=== PATIENT | male | born 1955 | race Caucasian/White ===

== ENCOUNTER → 2016-11-10 | Outpatient (CLI) | payer OTHER ==
--- NOTE | 2016-11-10 13:34 | CT ---
EXAMINATION TYPE: CT ChestAbdPelvis w con DATE OF EXAM: 11/10/2016 1:22 PM COMPARISON: CT CAP July 27, 2016. PET/CT September 18, 2015. HISTORY: Melanoma progress study. CT DLP: 1844 mGycm. Automated Exposure Control for Dose Reduction was Utilized. CONTRAST: CT scan of the thorax, abdomen and pelvis is performed with oral and with IV Contrast, patient inject ed with 100 ml mL of Omnipaque 300. FINDINGS: LUNGS: There is stable 7 mm calcified nodule or granuloma in the right lung base on axial image 56. T here is stable 7 mm right midlung calcified nodule possible lateral hilar lymph node on axial image 4 3. Mild underlying emphysematous change is redemonstrated. There is no new suspicious noncalcified pa renchymal nodule or mass identified bilaterally. There is no pleural effusion or pneumothorax seen bi laterally. The tracheobronchial tree is patent. MEDIASTINUM: There are no greater than 1 cm noncalcified hilar or mediastinal lymph nodes. There are prominent but subcentimeter calcified subcarinal lymph nodes No cardiomegaly or pericardial effusio n is seen. Coronary artery calcification is redemonstrated. OTHER: Previous abnormal lower right axillary mass or adenopathy is not identified on current study. LIVER/GB: Liver remains diffusely low dense. PANCREAS: No significant abnormality is seen. SPLEEN: Some scattered calcifications throughout the spleen are redemonstrated. ADRENALS: No significant abnormality is seen. KIDNEYS: No significant abnormality is seen. BOWEL: No significant abnormality is seen. GENITAL ORGANS: No gross abnormality seen. LYMPH NODES: There is persistent low dense oval area over left iliac bone measuring 8.8 x 3.4 cm on a xial image 109 with some rim hyperdensity and calcification unchanged in size and appearance from mos t recent CT cap study, significantly improved in size versus original PET/CT. Adjacent bone shows val e sclerosis. Some sclerotic erosion anteriorly and inferiorly is stable at level of superior left hip joint. OSSEOUS STRUCTURES: No significant abnormality is seen. OTHER: There is mild atherosclerotic change of abdominal aorta and branch vessels. IMPRESSION: Stable appearance and size of left iliac lesion suspect treated neoplasm. No new mass or adenopathy is identified.
== END | disposition home or self-care (01) ==
LOC: RADCTMAIN 12:38
PROVIDERS: ATTEND Internal Medicine Hematology & Oncology
DX: M89.8X8 Other specified disorders of bone, other site (principal); C43.9 Malignant melanoma of skin, unspecified
CPT/HCPCS: 71260; 74177; Q9967

== ENCOUNTER → 2016-12-19 | Outpatient (CLI) | payer OTHER ==
--- NOTE | 2016-12-19 10:27 | MR ---
EXAMINATION TYPE: MR brain wo/w con DATE OF EXAM: 12/19/2016 8:26 AM COMPARISON: Prior MRI brain September 13, 2015. HISTORY: Headaches , malignant melanoma TECHNIQUE: Multiplanar, multisequence images of the brain and brainstem is performed without and with IV contras t, utilizing 20 mL intravenous MultiHance . FINDINGS: Diffusion weighted images demonstrate no evidence of a recent infarct or other diffusion ab normality. There is no worrisome extra-axial fluid collection. The ventricular system and cisternal spaces are normal in size and appearance. The brain volume is age appropriate. There are scattered foci of T2 hyperintensity seen throughout the white matter bilaterally. Approximately 20-25 scattered lesions are felt present. Lesions are nonspecific in appearance and distribution most likely on basi s of product of chronic small vessel ischemic change. No new lesions are clearly evident. Midline structures demonstrate normal morphology. The craniocervical junction appears within normal limits. Post contrast images demonstrate no abnormal enhancement. The dural venous sinuses appear pa tent. The visualized sinuses are clear on current study and the globes are intact. Nasal septum is de viated to right of midline similar to prior. IMPRESSION: 1. Mild to moderate nonspecific white matter changes most likely on basis of product of chronic small vessel ischemic change in patient of this age. 2. Interval resolution of right maxillary sinus disease. 3. No new suspicious enhancing intraparenchymal mass or other findings seen to account for patient's symptoms of headaches.
== END | disposition home or self-care (01) ==
LOC: RADMRIMAIN 07:40
PROVIDERS: ATTEND Internal Medicine Hematology & Oncology
DX: R90.82 White matter disease, unspecified (principal); C43.9 Malignant melanoma of skin, unspecified
CPT/HCPCS: 70553; A9577

== ENCOUNTER → 2017-02-15 | Outpatient (CLI) | payer OTHER ==
[2017-02-15 10:43] LABS: Blood Urea Nitrogen 14 mg/dL (9-20); Non-African American GFR(MDRD) >60 (>60 ml/min/1.73 sqM)
--- NOTE | 2017-02-15 12:33 | CT ---
EXAMINATION TYPE: CT ChestAbdPelvis w con DATE OF EXAM: 02/15/2017 COMPARISON: 11/10/2016 and 07/27/2016. HISTORY: 61-year-old female follow up to melanoma of Lt hip TECHNIQUE: Contiguous axial scanning of the chest, abdomen, and pelvis performed with IV Contrast, pa tient injected with 100 mL of Omnipaque 300. Delayed images through the kidneys were obtained. Lopez l/sagittal reconstructions performed. CT DLP: 1706.5 mGycm Automated exposure control for dose reduction was used. FINDINGS: CHEST: The heart is normal size without pericardial effusion. Coronary vessel calcifications are present in remarkable for coronary artery disease. Ascending aorta is ectatic at 3.8 cm. Mild atherosclerotic arch calcifications with conventional arch vessel branching anatomy. Calcified subcarinal and right hilar lymph nodes. No thoracic lymphadenopathy. Stable calcified granuloma at the right base. Mild diffuse bronchial wall thickening and mild to mode rate centrilobular emphysema. No consolidation or pleural effusion. ABDOMEN: No focal liver lesion or biliary ductal dilatation. Portal venous system is patent. Gallbladder, adrenal glands, kidneys, and pancreas within normal limits. Calcified granulomas within the spleen. Stable nonenlarged portacaval lymph node measuring 8 mm. No mesenteric or retroperitoneal lymphadenop athy seen. No dilated small bowel, free fluid, or free air. Normal appendix. Oral contrast has progressed to the mid transverse colon. Mild stool in the left hem icolon. No pericolonic inflammatory change. Tiny fatty umbilical hernia. Mild atelectatic calcifications throughout the abdominal aorta and iliac arteries. Pelvis: Mild cervical frontal bladder wall thickening. Central prostatic calcifications. Redemonstrated low-density soft tissue versus dense fluid lesion along the left iliac fossa and anter ior margin of the left sacral and underlying bony remodeling. This currently measures 8.8 x 3.5 cm ve rsus 8.8 x 3.4 cm, previously, not significantly changed. However, this is noted to be smaller from 07/27/2016. There may be some thin peripheral calcifications. Asymmetric atrophy of the left psoas ma silas is similar as well. Bones: The chronic remodeling of the left iliac fossa as mentioned above. Underlying sclerosis of the left i liac bone is unchanged and may reflect posttreatment change. There is some vertically oriented sclero sis in the left sacral alar, coronal image 78 and axial image 102 which was also present on prior exa m in retrospect that could represent a subtle chronic insufficiency fracture. Otherwise, no osseous d estructive process seen. IMPRESSION: 1. STABLE LOW-DENSITY MASS VERSUS FLUID COLLECTION MEASURING 8.8 CM ALONG THE LEFT ILIAC FOSSA LIKELY REPRESENTING TREATED DISEASE. 2. UNDERLYING REMODELING OF THE LEFT ILIAC FOSSA IS STABLE WELL. 3. NO EVIDENCE FOR DISEASE RECURRENCE IN THE CHEST, ABDOMEN, OR PELVIS.
== END | disposition home or self-care (01) ==
LOC: RADCTMAIN 10:15
PROVIDERS: ATTEND Internal Medicine Hematology & Oncology
DX: C43.59 Malignant melanoma of other part of trunk (principal); Z88.5 Allergy status to narcotic agent
CPT/HCPCS: 82565; 84520; 71260; 74177; 36415; Q9967

== ENCOUNTER → 2017-06-26 | Outpatient (CLI) | payer OTHER ==
[2017-06-26 12:45] LABS: Blood Urea Nitrogen 14 mg/dL (9-20); Non-African American GFR(MDRD) >60 (>60 ml/min/1.73 sqM)
--- NOTE | 2017-06-26 16:30 | CT ---
EXAMINATION TYPE: CT ChestAbdPelvis w con DATE OF EXAM: 06/26/2017 COMPARISON: Prior CT chest abdomen pelvis 02/15/2017 HISTORY: Melanoma CT DLP: 2446.2 mGycm Automated exposure control for dose reduction was used. CONTRAST: CT scan of the chest, abdomen and pelvis is performed with Oral Contrast and with IV Contrast, patien t injected with 100 mL of Omnipaque 300. FINDINGS: LUNGS: The lungs are grossly clear, there is no concerning parenchymal mass or nodule identified. C entrilobular emphysematous changes are again noted. Calcified nodule again noted in the right lower l obe. There is no pleural effusion or pneumothorax seen. The tracheobronchial tree is patent. MEDIASTINUM: Calcified subcarinal nodes again seen. Coronary artery calcifications present. No perica rdial effusion. AORTA: No significant abnormality is seen. OTHER: No additional significant abnormality is seen. LIVER/GB: Stable PANCREAS: No significant abnormality is seen. SPLEEN: Evidence of granulomatous disease as on prior exam. ADRENALS: No significant abnormality is seen. KIDNEYS: No significant abnormality is seen. REPRODUCTIVE ORGANS: No gross abnormality seen. BOWEL: No obstruction. FREE AIR: No Free Air visible. ASCITES: None seen. RETROPERITONEAL ADENOPATHY: No retroperitoneal adenopathy is seen. LYMPH NODES: No greater than 1 cm abdominal or pelvic lymph nodes are appreciated. URINARY BLADDER: No significant abnormality is seen. PELVIC ADENOPATHY: None visualized. OSSEOUS STRUCTURES: Sclerosis involves the left ilium similar to prior exam. Low density focus prese nt along the left pelvic sidewall is again noted, there is remodeling of the anterior aspect of the a cetabulum as on prior exam. The low-density focus within the left pelvic sidewall shows a similar siz e to previous exam and extends to the level of the sacrum to the level of the peripheral portion of t he external iliac vasculature. Asymmetric appearance to the iliopsoas as on prior exam. IMPRESSION: Findings are similar to prior exam.
== END | disposition home or self-care (01) ==
LOC: RADCTMAIN 12:02
PROVIDERS: ATTEND Internal Medicine Hematology & Oncology
DX: C43.59 Malignant melanoma of other part of trunk (principal); Z88.5 Allergy status to narcotic agent
CPT/HCPCS: 82565; 84520; 71260; 74177; 36415; Q9967

== ENCOUNTER → 2018-01-02 | Outpatient (CLI) | payer OTHER ==
[2018-01-02 14:50] LABS: Blood Urea Nitrogen 15 mg/dL (9-20)
--- NOTE | 2018-01-02 16:32 | CT ---
EXAMINATION TYPE: CT ChestAbdPelvis w con DATE OF EXAM: 01/02/2018 COMPARISON: 06/26/2017 HISTORY: Follow up for melanoma. Back and left hip pain. CT DLP: 2474.8 mGycm CONTRAST: CT scan of the chest, abdomen and pelvis is performed with Oral Contrast and with IV Contrast, patien t injected with 100ml mL of Isovue M300. CT Chest: LUNGS: The lungs are clear and free of infiltrate or atelectasis. No pulmonary nodule or mass is det ected. No pleural effusion or CT evidence of interstitial lung disease. Right basilar calcified gran uloma. MEDIASTINUM: Thoracic aorta is of normal caliber. The heart is not enlarged. No evidence for media stinal mass or adenopathy. HILAR STRUCTURES: No evidence for mass. No hilar adenopathy is appreciated. OTHER: No significant abnormality. CONTRAST CT ABDOMEN AND PELVIS FINDINGS: LIVER/GB: No calcified gallstones. No space occupying hepatic lesion. Biliary tree is of normal ca liber. PANCREAS: No inflammation. No distinct mass. SPLEEN: No splenic enlargement. No lesion seen. ADRENALS: No nodule. No thickening. KIDNEYS/BLADDER: No hydronephrosis. No nephrolithiasis. No disctinct renal mass. BOWEL: Normal appendix. Normal bowel caliber. No inflammation. GENITAL ORGANS: No gross abnormality. LYMPH NODES: No greater than 1cm abdominal or pelvic lymph nodes are appreciated. AORTA: No significant abnormality. OSSEOUS STRUCTURES: Sclerosis involves the left ilium similar to prior exam. Low density focus prese nt along the left pelvic sidewall is again noted , there is remodeling of the anterior aspect of the acetabulum as on prior exam. The low-density focus within the left pelvic sidewall shows a similar si ze to previous exam and extends to the level of the sacrum to the level of the peripheral portion of the external iliac vasculature. Asymmetric appearance to the iliopsoas as on prior exam. OTHER: No significant additional abnormality is seen. IMPRESSION: 1. Stable examination.
== END | disposition home or self-care (01) ==
LOC: RADCTMAIN 14:11
PROVIDERS: ATTEND Internal Medicine Hematology & Oncology
DX: C43.59 Malignant melanoma of other part of trunk (principal); Z88.5 Allergy status to narcotic agent; Z88.8 Allergy status to other drugs, medicaments and biological substances
CPT/HCPCS: 82565; 84520; 71260; 74177; 36415; Q9967

== ENCOUNTER → 2018-02-21 | Outpatient (CLI) | payer OTHER ==
[2018-02-21 16:03] LABS: Blood Urea Nitrogen 13 mg/dL (9-20)
--- NOTE | 2018-02-22 08:59 | CT ---
EXAMINATION TYPE: CT chest w con DATE OF EXAM: 02/21/2018 COMPARISON: 01/02/2018 CT chest, abdomen, and pelvis HISTORY: melanoma/observe mets/sob CT DLP: 617.7 mGycm. Automated Exposure Control for Dose Reduction was Utilized. TECHNIQUE: CT scan of the thorax is performed following with IV Contrast, patient injected with 100 mL of Isovue 300. FINDINGS: LUNGS: There is a new moderate to large right pleural effusion with associated multifocal right-sided subsegmental and segmental right basilar atelectasis. There is no gross evidence of endobronchial ob struction. A new vague 2 mm solid-appearing pulmonary nodule seen on series 4 image 32 within the lef t upper lobe. A subtle groundglass opacity is also seen within the left upper lobe on series 4 image 22 developing interim. Similar-appearing nodular densities within the medial left upper lobe are unch anged from the prior. These are demonstrated on series 4 image 16. Along the left interlobar fissure there is a new 7 mm pulmonary nodule on series 4 image 52, given its short-term interval development in decreased conspicuity on soft tissue windows this could represent an intrafissural lymph node rath er than a true pulmonary nodule. MEDIASTINUM: Although they remain less than 1 cm in short axis the mediastinal lymph nodes seen on th e prior exam of 01/02/2018 have enlarged in the interim with a prevascular lymph node on series 3 imag e 21 measuring up to 9 mm in short axis and previously measuring 2 mm. Just posterior to this within the pretracheal region there is a 9 mm short axis lymph node also previously measuring 1 to 2 mm. On series 3 image 26 there is a pretracheal lymph node measuring 1.0 cm in short axis, measuring approxi mately 3 mm in short axis on the prior. A right suprahilar lymph node measures 1.3 cm and is enlarged on series 3 image 29. Subcarinal adenopathy again demonstrates granulomatous change but has also enl arged in the interim as have other left paratracheal and left hilar lymph nodes. No pericardial eff usion is seen. Moderate three-vessel coronary artery calcifications are seen. OTHER: Granulomatous benign parenchymal calcifications are seen of the spleen. Minimal degenerative c hanges of the thoracic spine are noted. IMPRESSION: 1. New moderate to large right pleural effusion with associated multifocal right-sided atelectasis th at is subsegmental and segmental within the right lung base. No endobronchial obstructing lesion is i dentified. If thoracentesis is performed reevaluation after thoracentesis is recommended to assess fo r underlying pulmonary mass. 2. Development of mediastinal adenopathy, which may be reactive and can also be assessed short-term. 3. New 2 mm left pulmonary nodule and 7 mm pulmonary nodule versus intrafissural lymph node.
== END | disposition home or self-care (01) ==
LOC: RADCTMAIN 15:09
PROVIDERS: ATTEND Internal Medicine Hematology & Oncology
DX: C43.59 Malignant melanoma of other part of trunk (principal); J90 Pleural effusion, not elsewhere classified; J98.11 Atelectasis; R59.0 Localized enlarged lymph nodes
CPT/HCPCS: 82565; 84520; 71260; 36415; Q9967

== ENCOUNTER 2018-02-22 15:52 | Inpatient (IN) | payer OTHER ==
--- NOTE | 2018-02-22 17:13 | ED ---
General Adult HPI - General Chief complaint: Shortness of Breath Stated complaint: LEO Time Seen by Provider: 02/22/18 16:35 Source: patient, RN notes reviewed Mode of arrival: wheelchair Limitations: no limitations - History of Present Illness Initial comments: This is a 8-year-old male who presents emergency Department complaining of difficulty breathing. Patient states she has a history of fluid on the lung and COPD. Patient states the difficulty breathing and getting worse over the last few days. Patient denies any fever but states he feels warm. Patient states he does have the chills. Patient denies any chest pain or shortness of breath. He states he has occasional cough but he has not produced any sputum. Patient denies abdominal pain patient denies nausea or vomiting. Patient also mentions he's had a rash all over his body face chest back and legs also on the palms of his hands for about 10 days now and it started after he took amoxicillin. Patient states the rash does not really bother him and he does not have any itching. Patient does have a past medical history significant for melanoma - Related Data Home Medications Medication Instructions Recorded Confirmed Tafinlar 3 tab PO BID 10/07/15 02/22/18 Trametinib Dimethyl Sulfoxide 2 mg PO DAILY 10/07/15 02/22/18 [Mekinist] Aspirin EC [Ecotrin] 325 mg PO DAILY 11/09/15 02/22/18 HYDROcodone/APAP 10-325MG [Printer 1 tab PO Q6H PRN 11/09/15 02/22/18 10-325] Sertraline [Zoloft] 100 mg PO HS 11/09/15 02/22/18 Albuterol Inhaler [Ventolin Hfa 2 puff INHALATION RT-Q6H PRN 02/22/18 02/22/18 Inhaler] LORazepam [Ativan] 1 mg PO DAILY PRN 02/22/18 02/22/18 Montelukast [Singulair] 10 mg PO DAILY 02/22/18 02/22/18 Primidone [Mysoline] 50 mg PO BID 02/22/18 02/22/18 Temazepam [Restoril] 30 mg PO HS 02/22/18 02/22/18 diphenhydrAMINE HCL [Benadryl] 25 mg PO HS PRN 02/22/18 02/22/18 fentaNYL 25MCG/HR PATCH [Duragesic 1 patch TRANSDERM Q72H 02/22/18 02/22/18 25MCG/HR] Previous Rx's Medication Instructions Recorded traZODone HCL [Desyrel] 100 mg PO HS tab 11/12/15 Allergies Allergy/AdvReac Type Severity Reaction Status Date / Time oxycodone HCl AdvReac Confusion Verified 02/22/18 17:53 [From OxyContin] Morphine Family AdvReac Family Uncoded 02/22/18 16:36 history of altered mental status Review of Systems ROS Statement: Those systems with pertinent positive or pertinent negative responses have been documented in the HPI. ROS Other: All systems not noted in ROS Statement are negative. Past Medical History Past Medical History: Coronary Artery Disease (CAD), Cancer, COPD, Myocardial Infarction (IA), Musculoskeletal Disorder, Osteoarthritis (OA), Sleep Apnea/CPAP /BIPAP Additional Past Medical History / Comment(s): Metastatic melanoma of the pelvis. ANNETTE Last Myocardial Infarction Date:: 2003 History of Any Multi-Drug Resistant Organisms: None Reported Past Surgical History: Heart Catheterization With Stent Additional Past Surgical History / Comment(s): melanoma excision from back. b/ l cataracts Past Anesthesia/Blood Transfusion Reactions: No Reported Reaction Date of Last Stent Placement:: 2003 Past Psychological History: Anxiety Smoking Status: Current every day smoker Past Alcohol Use History: None Reported Past Drug Use History: None Reported - Past Family History Father Family Medical History: Cancer Additional Family Medical History / Comment(s): Father of lung cancer. He was a smoker. He had glaucoma and cataracts and macular degeneration. Mother Family Medical History: Cancer, COPD Additional Family Medical History / Comment(s): Mother had breast cancer. She was an alcoholic. General Exam - General Exam Comments Initial Comments: GENERAL: Patient is well-developed and well-nourished. Patient is nontoxic and well- hydrated and is in mild distress. ENT: Neck is soft and supple. No significant lymphadenopathy is noted. Oropharynx is clear. Moist mucous membranes. Neck has full range of motion without eliciting any pain. EYES: The sclera were anicteric and conjunctiva were pink and moist. Extraocular movements were intact and pupils were equal round and reactive to light. Eyelids were unremarkable. PULMONARY: Patient has significantly diminished breath sounds on the right side. Patient' s left side has been extremely wheezing. CARDIOVASCULAR: There is a regular rate and rhythm without any murmurs gallops or rubs. ABDOMEN: Soft and nontender with normal bowel sounds. No palpable organomegaly was noted. There is no palpable pulsatile mass. SKIN: Patient has small erythematous macules in the distal abdomen and lower back however the upper abdomen and upper back he rashes coalesced into just a large erythematous area. There is no raised rash noted patient has a same rash on his legs. Patient also has a small erythematous macules on the palms of his hands. NEUROLOGIC: Patient is alert and oriented x3. Cranial nerves II through XII are grossly intact. Motor and sensory are also intact. Normal speech, volume and content. Symmetrical smile. MUSCULOSKELETAL: Normal extremities with adequate strength and full range of motion. LYMPHATICS: No significant lymphadenopathy is noted PSYCHIATRIC: Normal psychiatric evaluation. Limitations: no limitations Course Vital Signs 02/22/18 16:33 Temperature 98.5 F Pulse Rate 80 Respiratory 20 Rate Blood Pressure 111/65 O2 Sat by Pulse 94 L Oximetry Medical Decision Making - Medical Decision Making EKG shows sinus rhythm at 80 bpm HI interval is 94 QRS is 84 QT interval 366 QTC is 442. Patient's EKG shows no ST segment elevation or depression or T wave abnormalities are noted. Chest x-ray shows a large right-sided pleural effusion which is new. Patient had a CAT scan yesterday it did show this effusion as well as some nodules that are new. Patient also shows some lymphadenopathy. I spoke with Dr. Flora Hines agrees that the patient should be admitted and I admitted the patient consult oncology and pulmonology - Lab Data Result diagrams: 02/22/18 17:24 02/22/18 17:24 Lab Results 02/22/18 02/22/18 02/22/18 Range/Units 17:24 17:24 17:24 WBC 10.5 (3.8-10.6) k/uL RBC 4.38 (4.30-5.90) m/uL Hgb 11.6 L (13.0-17.5) gm/dL Hct 35.7 L (39.0-53.0) % MCV 81.4 (80.0-100.0) fL MCH 26.4 (25.0-35.0) pg MCHC 32.5 (31.0-37.0) g/dL RDW 14.5 (11.5-15.5) % Plt Count 464 H (150-450) k/uL Neutrophils % 90 % Lymphocytes % 3 % Monocytes % 4 % Eosinophils % 3 % Basophils % 0 % Neutrophils # 9.4 H (1.3-7.7) k/uL Lymphocytes # 0.3 L (1.0-4.8) k/uL Monocytes # 0.4 (0-1.0) k/uL Eosinophils # 0.3 (0-0.7) k/uL Basophils # 0.0 (0-0.2) k/uL PT (9.0-12.0) sec INR (<1.2) APTT (22.0-30.0) sec Sodium 134 L (137-145) mmol/L Potassium 4.7 (3.5-5.1) mmol/L Chloride 95 L (98-107) mmol/L Carbon Dioxide 29 (22-30) mmol/L Anion Gap 10 mmol/L BUN 11 (9-20) mg/dL Creatinine 0.60 L (0.66-1.25) mg/dL Est GFR (CKD-EPI)AfAm >90 (>60 ml/min/1.73 sqM) Est GFR (CKD-EPI)NonAf >90 (>60 ml/min/1.73 sqM) Glucose 103 H (74-99) mg/dL Calcium 8.9 (8.4-10.2) mg/dL Magnesium 2.2 (1.6-2.3) mg/dL Total Bilirubin 0.2 (0.2-1.3) mg/dL AST 23 (17-59) U/L ALT 42 (21-72) U/L Alkaline Phosphatase 107 (38-126) U/L Total Creatine Kinase 66 (55-170) U/L CK-MB (CK-2) 1.3 (0.0-2.4) ng/mL CK-MB (CK-2) Rel Index 2.0 Troponin I <0.012 (0.000-0.034) ng/mL Total Protein 5.9 L (6.3-8.2) g/dL Albumin 3.1 L (3.5-5.0) g/dL 02/22/18 Range/Units 17:24 WBC (3.8-10.6) k/uL RBC (4.30-5.90) m/uL Hgb (13.0-17.5) gm/dL Hct (39.0-53.0) % MCV (80.0-100.0) fL MCH (25.0-35.0) pg MCHC (31.0-37.0) g/dL RDW (11.5-15.5) % Plt Count (150-450) k/uL Neutrophils % % Lymphocytes % % Monocytes % % Eosinophils % % Basophils % % Neutrophils # (1.3-7.7) k/uL Lymphocytes # (1.0-4.8) k/uL Monocytes # (0-1.0) k/uL Eosinophils # (0-0.7) k/uL Basophils # (0-0.2) k/uL PT 10.3 (9.0-12.0) sec INR 1.0 (<1.2) APTT 26.5 (22.0-30.0) sec Sodium (137-145) mmol/L Potassium (3.5-5.1) mmol/L Chloride (98-107) mmol/L Carbon Dioxide (22-30) mmol/L Anion Gap mmol/L BUN (9-20) mg/dL Creatinine (0.66-1.25) mg/dL Est GFR (CKD-EPI)AfAm (>60 ml/min/1.73 sqM) Est GFR (CKD-EPI)NonAf (>60 ml/min/1.73 sqM) Glucose (74-99) mg/dL Calcium (8.4-10.2) mg/dL Magnesium (1.6-2.3) mg/dL Total Bilirubin (0.2-1.3) mg/dL AST (17-59) U/L ALT (21-72) U/L Alkaline Phosphatase (38-126) U/L Total Creatine Kinase (55-170) U/L CK-MB (CK-2) (0.0-2.4) ng/mL CK-MB (CK-2) Rel Index Troponin I (0.000-0.034) ng/mL Total Protein (6.3-8.2) g/dL Albumin (3.5-5.0) g/dL Disposition Clinical Impression: Pleural effusion, Erythematous rash Disposition: ADMITTED IP TO THIS HOSP Referrals: Iván Hines Jr, [Primary Care Provider] - 1-2 days Time of Disposition: 19:03
[2018-02-22] MEDS ORDERED: ACETAMINOPHEN TAB 500 MG TAB PO STA (17:18)
[2018-02-22 17:37] LABS: Basophils % (A) 0 %; Eosinophils # (A) 0.3 k/uL (0-0.7); Eosinophils % (A) 3 %; HCT 35.7 % (39.0-53.0); HGB 11.6 gm/dL (13.0-17.5); Lymphocytes # (A) 0.3 k/uL (1.0-4.8); Lymphocytes % (A) 3 %; MCH 26.4 pg (25.0-35.0); MCHC 32.5 g/dL (31.0-37.0); MCV 81.4 fL (80.0-100.0); Mean Platelet Volume 6.1; Monocytes # (A) 0.4 k/uL (0-1.0); Monocytes % (A) 4 %; Neutrophils # (A) 9.4 k/uL (1.3-7.7); Neutrophils % (A) 90 %; Platelet Count 464 k/uL (150-450); RBC 4.38 m/uL (4.30-5.90); RDW 14.5 % (11.5-15.5); WBC 10.5 k/uL (3.8-10.6)
[2018-02-22 17:48] LABS: Partial Thromboplastin Time 26.5 sec (22.0-30.0); Prothrombin Time 10.3 sec (9.0-12.0)
[2018-02-22 18:09] LABS: Creatine Kinase 66 U/L (55-170)
[2018-02-22 18:11] LABS: ALT 42 U/L (21-72); AST 23 U/L (17-59); Albumin 3.1 g/dL (3.5-5.0); Alkaline Phosphatase 107 U/L (38-126); Anion Gap 10 mmol/L; Blood Urea Nitrogen 11 mg/dL (9-20); Calcium 8.9 mg/dL (8.4-10.2); Carbon Dioxide 29 mmol/L (22-30); Chloride 95 mmol/L (98-107); Glucose 103 mg/dL (74-99); Magnesium 2.2 mg/dL (1.6-2.3); Potassium 4.7 mmol/L (3.5-5.1); Sodium 134 mmol/L (137-145); Total Bilirubin 0.2 mg/dL (0.2-1.3); Total Protein 5.9 g/dL (6.3-8.2)
[2018-02-22 18:21] LABS: Creatine Kinase MB 1.3 ng/mL (0.0-2.4); Troponin I <0.012 ng/mL (0.000-0.034)
--- NOTE | 2018-02-22 18:56 | XR ---
EXAMINATION TYPE: XR chest 2V DATE OF EXAM: 02/22/2018 COMPARISON: 10/09/2015 HISTORY: Difficulty breathing TECHNIQUE: Frontal and lateral views of the chest are obtained. FINDINGS: There is 50% opacification of the right hemithorax. Heart size is probably normal. The lef t lung is clear. There is no heart failure. IMPRESSION: There is new right lower lobe consolidation and pleural fluid compared to old exam. No h eart failure.
[2018-02-22] MEDS ORDERED: SODIUM CHLORIDE 0.9% 1,000 ML IV ONE (19:03)
[2018-02-23] MEDS: TEMAZEPAM 30 MG CAP PO SCH ×2 (00:11→21:39)
[2018-02-23] MEDS: SERTRALINE 100 MG TAB PO SCH ×2 (00:11→21:35)
[2018-02-23] MEDS: HYDROcodone/APAP 10-325MG 1 EACH TAB PO PRN ×2 (05:35→10:48)
--- NOTE | 2018-02-23 09:05 | US ---
EXAMINATION TYPE: US chest DATE OF EXAM: 02/23/2018 COMPARISON: Chest XR 02/22/2018 CLINICAL HISTORY: Markings for thoracentesis by pulmonary staff. EXAM MEASUREMENTS: Right Pleural Effusion fluid pocket: 5.6 cm Right skin to fluid thickness: 3.3 cm Right side marked for possible thoracentesis outside the dept. Left side NOT marked for possible thoracentesis outside the dept. Pulmonologists are able to review the images in the patient?s EMR. IMPRESSIONS: SMALL, BILATERAL PLEURAL EFFUSIONS.
[2018-02-23] MEDS ORDERED: IPRATROPIUM-ALBUTEROL 3 ML NEB INHALATION PRN (09:51)
[2018-02-23] MEDS ORDERED: MEKINIST 2 MG PO SCH ×2 (10:01→17:00)
[2018-02-23] MEDS ORDERED: TAFINLAR PO SCH ×2 (10:01→21:00)
[2018-02-23] MEDS ORDERED: diphenhydrAMINE 25 MG CAP PO PRN (10:04)
--- NOTE | 2018-02-23 10:30 | P.HPIM ---
History of Present Illness H&P Date: 02/23/18 Chief Complaint: Dyspnea This 62-year-old male well-known to our practice who presented to the emergency department with difficulty breathing patient has a history of pleural effusions COPD and malignant melanoma patients having difficulty breathing that's getting worse over the past few days patient denied fever but states he felt warm patient complained of chills and denied chest pain. He does have an occasional cough but nonproductive. Patient had quit smoking when he initially was diagnosed with melanoma and restart feeling better he can affect up the habit again does smoke at least 10 or more cigarettes daily patient also mentioned that he has a rash over her chest and back also has had about 10 days now after he took amoxicillin which patient states the rash does not have itching Review of Systems Constitutional: Reports as per HPI, Reports chills, Reports malaise Ears, nose, mouth and throat: Reports as per HPI Cardiovascular: Reports as per HPI, Reports dyspnea on exertion Respiratory: Reports dyspnea, Reports sleep apnea, Reports wheezing Gastrointestinal: Reports as per HPI Genitourinary: Reports as per HPI Musculoskeletal: Reports as per HPI Integumentary: Reports rash (Denies pruritus) Past Medical History Past Medical History: Coronary Artery Disease (CAD), Cancer, COPD, Myocardial Infarction ([place]), Musculoskeletal Disorder, Osteoarthritis (OA), Sleep Apnea/CPAP /BIPAP Additional Past Medical History / Comment(s): Metastatic melanoma of the pelvis. ANNETTE Last Myocardial Infarction Date:: 2013 History of Any Multi-Drug Resistant Organisms: None Reported Past Surgical History: Heart Catheterization With Stent Additional Past Surgical History / Comment(s): melanoma excision from back. b/ l cataracts Past Anesthesia/Blood Transfusion Reactions: No Reported Reaction Date of Last Stent Placement:: 2013 Past Psychological History: Anxiety Additional Psychological History / Comment(s): Pt resides with his spouse who is currently under tx for TB. He has 2 grown son's in the home as well. Pt has been getting progressively weaker to the point of 2 weeks ago no longer able to walk and was crawling around the home. He has no home care agency. He has a very supportive family with mohit's and son's doing what they can and checking pt frequently. He already has a bath chair and BSC. He was in the process of getting a hospital bed/ bedside tray however it has not happened yet. Family would like block and case maker to see them. Smoking Status: Current some day smoker Past Alcohol Use History: None Reported Additional Past Alcohol Use History / Comment(s): Pt started smoking at age 13 and is a 2 1/2 ppd smoker. Past Drug Use History: None Reported - Past Family History Father Family Medical History: Cancer Additional Family Medical History / Comment(s): Father of lung cancer. He was a smoker. He had glaucoma and cataracts and macular degeneration. Mother Family Medical History: Cancer, COPD Additional Family Medical History / Comment(s): Mother had breast cancer. She was an alcoholic. Medications and Allergies Home Medications Medication Instructions Recorded Confirmed Type Tafinlar 3 tab PO BID 10/07/15 02/22/18 History Trametinib Dimethyl Sulfoxide 2 mg PO DAILY 10/07/15 02/22/18 History [Mekinist] Aspirin EC [Ecotrin] 325 mg PO DAILY 11/09/15 02/22/18 History HYDROcodone/APAP 10-325MG [[place] 1 tab PO Q6H PRN 11/09/15 02/22/18 History 10-325] Sertraline [Zoloft] 100 mg PO HS 11/09/15 02/22/18 History traZODone HCL [Desyrel] 100 mg PO HS tab 11/12/15 02/22/18 Rx Albuterol Inhaler [Ventolin Hfa 2 puff INHALATION RT-Q6H PRN 02/22/18 02/22/18 History Inhaler] LORazepam [Ativan] 1 mg PO DAILY PRN 02/22/18 02/22/18 History Montelukast [Singulair] 10 mg PO DAILY 02/22/18 02/22/18 History Primidone [Mysoline] 50 mg PO BID 02/22/18 02/22/18 History Temazepam [Restoril] 30 mg PO HS 02/22/18 02/22/18 History diphenhydrAMINE HCL [Benadryl] 25 mg PO HS PRN 02/22/18 02/22/18 History fentaNYL 25MCG/HR PATCH [Duragesic 1 patch TRANSDERM Q72H 02/22/18 02/23/18 History 25MCG/HR] Allergies Allergy/AdvReac Type Severity Reaction Status Date / Time oxycodone HCl AdvReac Confusion Verified 02/22/18 17:53 [From OxyContin] Morphine Family AdvReac Family Uncoded 02/22/18 16:36 history of altered mental status Physical Exam Osteopathic Statement: *. No significant issues noted on an osteopathic structural exam other than those noted in the History and Physical/Consult. Vitals: Vital Signs Temp Pulse Pulse Resp BP BP Pulse Ox 02/23/18 07:17 98.3 F 82 18 112/76 95 02/22/18 21:44 97.9 F 94 18 132/82 92 L 02/22/18 20:57 76 16 121/62 97 02/22/18 19:55 96.5 F L 93 14 126/73 02/22/18 16:33 98.5 F 80 20 111/65 94 L Intake and Output 02/22/18 02/23/18 02/23/18 22:59 06:59 14:59 Output Total 250 Balance -250 Output: Urine 250 Other: Weight 111.584 kg General: [Patient awake, alert and oriented times 3. Patient in no acute distress.] HEENT: [PERRL. EOMI. No pharyngeal erythema or exudate.] Neck: [No adenopathy.] Cardiac: [Heart regular in rate and rhythm. No S3. No S4. No clicks, rubs. No murmur.] Lungs: Breath sounds significantly diminished on the right patient has extreme wheezing bilaterally Abdomen: [No mass. No organomegaly. Bowel sounds presnt and normoactive in all 4 quadrants.] Extremes: [No edema no cyanosis no claudication normal pulses] : [] Musculoskeletal: [No joint erythema, edema or tenderness.] Skin: [No rash.] Neurologic: [No lateralizing deficits. CN II - XII grossly intact.] Lymphatic: [No adenopathy.] Results CBC & Chem 7: 02/22/18 17:24 02/22/18 17:24 Labs: Abnormal Lab Results - Last 24 Hours (Table) 02/22/18 02/22/18 Range/Units 17:24 17:24 Hgb 11.6 L (13.0-17.5) gm/dL Hct 35.7 L (39.0-53.0) % Plt Count 464 H (150-450) k/uL Neutrophils # 9.4 H (1.3-7.7) k/uL Lymphocytes # 0.3 L (1.0-4.8) k/uL Sodium 134 L (137-145) mmol/L Chloride 95 L (98-107) mmol/L Creatinine 0.60 L (0.66-1.25) mg/dL Glucose 103 H (74-99) mg/dL Total Protein 5.9 L (6.3-8.2) g/dL Albumin 3.1 L (3.5-5.0) g/dL Thrombosis Risk Factor Assmnt - DVT/VTE Prophylaxis DVT/VTE Prophylaxis: Contraindicated - See note (Patient is being prepped for thoracentesis for pulmonary infusion both therapeutic and diagnostic) - Choose All That Apply Any of the Below Risk Factors Present?: Yes Each Factor Represents 1 point: Abnormal pulmonary function (COPD), Acute [place], Age 41-60 years Other Risk Factors: Yes Each Risk Factor Represents 2 Points: Malignancy Other congenital or acquired thrombophilia - If yes, enter type in comment: No Thrombosis Risk Factor Assessment Total Risk Factor Score: 5 Thrombosis Risk Factor Assessment Level: High Risk Assessment and Plan (1) Erythematous rash Current Visit: Yes Status: Acute Code(s): R21 - RASH AND OTHER NONSPECIFIC SKIN ERUPTION SNOMED Code(s): 774634035 (2) Pleural effusion Current Visit: Yes Status: Acute Code(s): J90 - PLEURAL EFFUSION, NOT ELSEWHERE CLASSIFIED SNOMED Code(s): 55788694 (3) Metastatic melanoma Current Visit: No Status: Chronic Priority: High Code(s): C79.9 - SECONDARY MALIGNANT NEOPLASM OF UNSPECIFIED SITE SNOMED Code(s): 045117962 Plan: Pulmonary safety consultant ensued patient is being prepped for a ultrasound guided thoracentesis of pleural effusion for both diagnostic and therapeutic purposes Patient is also receiving antibiotic for what appears to be a pulmonary infiltrate Consultation with heme on Also being scheduled secondary to current history of malignant melanoma patient is on rescue therapy currently for same Time with Patient: Greater than 30
[2018-02-23] MEDS: methylPREDNISolone SOD SUCCI 125 MG/2 ML VIAL IV SCH ×3 (10:49→23:26)
[2018-02-23 11:39] VITALS: BMI 33.3
[2018-02-23] MEDS: ASPIRIN 81 MG PO SCH (11:47)
[2018-02-23] MEDS: NICOTINE 21MG/24HR PATCH TRANSDERM SCH (11:47)
--- NOTE | 2018-02-23 11:59 | XR ---
EXAMINATION TYPE: XR chest 1V portable DATE OF EXAM: 02/23/2018 HISTORY: S/P RT THORACENTESIS. REFERENCE: Previous study dated 02/22/2018. FINDINGS: There continues to be some pleural fluid with associated airspace disease on the right. Thi s has improved from previous. No definite pneumothorax is identified. The left lung is clear. The hea rt is not enlarged. IMPRESSION: NO ACUTE POSTTHORACENTESIS ABNORMALITY.
[2018-02-23 12:04] LABS: Glucose,Whole Blood 108 mg/dL (75-99)
[2018-02-23] MEDS: INSULIN ASPART 100 UNIT/ML 1 ML 10 ML VIAL SQ SCH ×3 (12:16→21:35)
[2018-02-23 13:02] LABS: Total Protein 5.8 g/dL (6.3-8.2)
[2018-02-23] MEDS: IPRATROPIUM-ALBUTEROL 3 ML NEB INHALATION SCH ×3 (13:03→20:40)
--- NOTE | 2018-02-23 13:52 | P.CNPUL ---
History of Present Illness Consult date: 02/23/18 Requesting physician: Iván Hines Jr Reason for consult: dyspnea, abnormal CXR/CT Chief complaint: Shortness of breath History of present illness: This is a very pleasant 62-year-old gentleman who follows with Dr. Hines as his primary care physician. He has a history of anemia of chronic disease, coronary disease, chronic obstructive pulmonary disease, osteoarthritis, obstructive sleep apnea not utilizing CPAP in the outpatient setting, degenerative disc disease, anxiety. He also has a 50 year history of chronic tobacco dependence. His original melanoma was on his back and had surgery with wide excision and no adjuvant therapy in 2006. He was diagnosed with recurrent metastatic melanoma back in 2016. This was found on his left hip and right axillary node. He has been under the care of Dr. Henriquez and is currently on Mekinist and Tafinlar. He had developed upper respiratory and reaction type symptoms. He thought he had a cold was treating with [id number]. He then went to an urgent care and was treated with amoxicillin and steroids. Following his completion of the amoxicillin he did break out in hives and has a rash on his trunk and upper extremities. He was also seen at Dr. Henriquez's office by his nurse practitioner Petra and was started on Singulair. He presented here yesterday to the emergency room with complaints of increasing shortness of breath cough and congestion. His x-ray showed a new right lower lobe consolidation and pleural effusion. Computed tomography scan revealed a new moderate to large right pleural effusion with surrounding atelectasis. There is also new mediastinal adenopathy. There is a noted 2 mm and 7 mm pulmonary nodules in the left lung. He is seen today in consultation on the regular medical floor. He is awake and alert in mild respiratory distress. He has been afebrile. Maintaining O2 saturations in the upper 90s on 2 L/m per nasal cannula. He's been hemodynamically stable. White count 10.5. Hemoglobin 11.6. Creatinine 0.60. Review of Systems Constitutional: Reports fatigue, Reports weakness Eyes: denies blurred vision, denies decreased vision Ears: deny: decreased hearing Ears, nose, mouth and throat: Denies headache, Denies sore throat Cardiovascular: Reports decreased exercise tolerance, Reports dyspnea on exertion, Reports shortness of breath, Denies chest pain Respiratory: Reports cough, Reports dyspnea, Reports pain Gastrointestinal: Denies abdominal pain, Denies diarrhea, Denies nausea, Denies vomiting Genitourinary: Reports as per HPI Musculoskeletal: Reports limitation of motion Musculoskeletal: left: hip pain Integumentary: Reports color changes, Reports rash Neurological: Denies numbness, Denies weakness Psychiatric: Reports anxiety Endocrine: Denies fatigue, Denies weight change Hematologic/Lymphatic: Reports as per HPI Allergic/Immunologic: Reports as per HPI Past Medical History Past Medical History: Coronary Artery Disease (CAD), Cancer, COPD, Myocardial Infarction ([place]), Musculoskeletal Disorder, Osteoarthritis (OA), Sleep Apnea/CPAP /BIPAP Additional Past Medical History / Comment(s): Metastatic melanoma of the pelvis. ANNETTE Last Myocardial Infarction Date:: 2013 History of Any Multi-Drug Resistant Organisms: None Reported Past Surgical History: Heart Catheterization With Stent Additional Past Surgical History / Comment(s): melanoma excision from back. b/ l cataracts Past Anesthesia/Blood Transfusion Reactions: No Reported Reaction Date of Last Stent Placement:: 2013 Past Psychological History: Anxiety Additional Psychological History / Comment(s): Pt resides with his spouse who is currently under tx for TB. He has 2 grown son's in the home as well. Pt has been getting progressively weaker to the point of 2 weeks ago no longer able to walk and was crawling around the home. He has no home care agency. He has a very supportive family with mohit's and son's doing what they can and checking pt frequently. He already has a bath chair and BSC. He was in the process of getting a hospital bed/ bedside tray however it has not happened yet. Family would like telephonic nurse case manager to see them. Smoking Status: Current some day smoker Past Alcohol Use History: None Reported Additional Past Alcohol Use History / Comment(s): Pt started smoking at age 13 and is a 2 1/2 ppd smoker. Past Drug Use History: None Reported - Past Family History Father Family Medical History: Cancer Additional Family Medical History / Comment(s): Father of lung cancer. He was a smoker. He had glaucoma and cataracts and macular degeneration. Mother Family Medical History: Cancer, COPD Additional Family Medical History / Comment(s): Mother had breast cancer. She was an alcoholic. Medications and Allergies Home Medications Medication Instructions Recorded Confirmed Type Tafinlar 3 tab PO BID 10/07/15 02/22/18 History Trametinib Dimethyl Sulfoxide 2 mg PO DAILY 10/07/15 02/22/18 History [Mekinist] Aspirin EC [Ecotrin] 325 mg PO DAILY 11/09/15 02/22/18 History HYDROcodone/APAP 10-325MG [[place] 1 tab PO Q6H PRN 11/09/15 02/22/18 History 10-325] Sertraline [Zoloft] 100 mg PO HS 11/09/15 02/22/18 History traZODone HCL [Desyrel] 100 mg PO HS tab 11/12/15 02/22/18 Rx Albuterol Inhaler [Ventolin Hfa 2 puff INHALATION RT-Q6H PRN 02/22/18 02/22/18 History Inhaler] LORazepam [Ativan] 1 mg PO DAILY PRN 02/22/18 02/22/18 History Montelukast [Singulair] 10 mg PO DAILY 02/22/18 02/22/18 History Primidone [Mysoline] 50 mg PO BID 02/22/18 02/22/18 History Temazepam [Restoril] 30 mg PO HS 02/22/18 02/22/18 History diphenhydrAMINE HCL [Benadryl] 25 mg PO HS PRN 02/22/18 02/22/18 History fentaNYL 25MCG/HR PATCH [Duragesic 1 patch TRANSDERM Q72H 02/22/18 02/23/18 History 25MCG/HR] fentaNYL 100MCG/HR PATCH 1 patch TRANSDERM Q72H 02/23/18 02/23/18 History [Duragesic 100MCG/HR] Allergies Allergy/AdvReac Type Severity Reaction Status Date / Time oxycodone HCl AdvReac Confusion Verified 02/22/18 17:53 [From OxyContin] Morphine Family AdvReac Family Uncoded 02/22/18 16:36 history of altered mental status Physical Exam Vitals: Vital Signs Temp Pulse Pulse Resp BP BP Pulse Ox 02/23/18 13:12 84 02/23/18 13:03 88 02/23/18 07:17 98.3 F 82 18 112/76 95 02/22/18 21:44 97.9 F 94 18 132/82 92 L 02/22/18 20:57 76 16 121/62 97 02/22/18 19:55 96.5 F L 93 14 126/73 02/22/18 16:33 98.5 F 80 20 111/65 94 L Intake and Output 02/22/18 02/23/18 02/23/18 22:59 06:59 14:59 Output Total 250 Balance -250 Output: Urine 250 Other: Weight 111.584 kg 111.584 kg - Constitutional General appearance: disheveled, mild distress, obese - EENT Eyes: EOMI, PERRLA, poor dentition ENT: hearing grossly normal Ears: bilateral: normal - Neck Neck: normal ROM Carotids: bilateral: upstroke normal Thyroid: bilateral: normal size - Respiratory Respiratory: right: diminished, bilateral: wheezing - Cardiovascular Rhythm: regular Heart sounds: normal: S1, S2 - Gastrointestinal General gastrointestinal: normal bowel sounds Localized gastrointestinal: mass: epigastric periumbilical - Genitourinary Male genitourinary: left inguinal hernia - Integumentary Integumentary: normal turgor, rash - Neurologic Neurologic: CNII-XII intact - Musculoskeletal Musculoskeletal: generalized weakness - Psychiatric Psychiatric: A&O x's 3, appropriate affect, intact judgment & insight Results - Laboratory Findings CBC and BMP: 02/22/18 17:24 02/22/18 17:24 PT/INR, D-dimer PT 10.3 sec (9.0-12.0) 02/22/18 17:24 INR 1.0 (<1.2) 02/22/18 17:24 Abnormal lab findings: Abnormal Labs 02/22/18 02/22/18 02/22/18 17:24 17:24 17:24 Hgb 11.6 L Hct 35.7 L Plt Count 464 H Neutrophils # 9.4 H Lymphocytes # 0.3 L Sodium 134 L Chloride 95 L Creatinine 0.60 L Glucose 103 H POC Glucose (mg/dL) Total Protein 5.9 L 5.8 L Albumin 3.1 L 02/23/18 11:53 Hgb Hct Plt Count Neutrophils # Lymphocytes # Sodium Chloride Creatinine Glucose POC Glucose (mg/dL) 108 H Total Protein Albumin - Diagnostic Findings Chest x-ray: image reviewed CT scan - chest: image reviewed Assessment and Plan Assessment: Impression: #1 Acute hypoxic respiratory failure secondary to large right pleural effusion. Status post thoracentesis today with 2600 dark sanguinous fluid returned. #2 Large right pleural effusion, suspect metastatic. #3 Metastatic melanoma involving the left pelvic area and right axillary node detected in 2016. Maintained on Mekinist and Tafinlar. Original melanoma on his back with surgical resection only in 2006. #4 Acute exacerbation of chronic obstructive pulmonary disease. #5 Chronic and ongoing 50 year tobacco dependence. #6 Obstructive sleep apnea not maintained on CPAP in the outpatient setting. #7 Coronary artery disease with previous stent placement 2003. #8 Osteoarthritis. #9 Erythematous rash of unclear etiology. The patient was recently on amoxicillin possible delayed reaction. He does state he has had amoxicillin the past without reaction. Plan: The patient was seen and evaluated by Dr. Adorno. Chest x-ray and CAT scan were reviewed. He did go ahead and perform a right-sided thoracentesis with approximately 2600 dark sanguinous fluid removed. Sent for fluid analysis and cytology. Improved chest x-ray with no pneumothorax. The patient's pulmonary status did improve. We will add DuoNeb inhalations 4 times a day and when necessary, Pulmicort and Perforomist inhalations twice a day, IV Solu-Medrol 60 mg every 6 hours. Benadryl as needed. He is educated regarding the importance of complete smoking cessation. NicoDerm patch will be applied. We will continue to follow and make further recommendations based on his clinical status. I, the cosigning physician, performed a history & physical examination of the patient. Lungs sounds with bilateral wheezing, diminished more so on the right lung. Maintaining good O2 saturations in the 90s on 2 L/m per nasal cannula. I discussed the assessment and plan of care with my nurse practitioner, Sanjuanita Christy. I attest to the above consultation as dictated by her. Time with Patient: Greater than 30
[2018-02-23 14:03] LABS: Appearance,BF Bloody; Nucleated Cells, Body Fluid 467 /uL; RBC, Body Fluid 49200 /uL
[2018-02-23 14:06] LABS: Mononuclear WBC,Body Fluid 36 %; Polynuclear WBC,Body Fluid 64 %; Total Cells Counted,Body Fluid 100
--- NOTE | 2018-02-23 14:06 | PCN ---
PROCEDURE NOTE PROCEDURE PERFORMED: Right sided thoracentesis. PREOPERATIVE DIAGNOSIS: Right pleural effusion. POSTOP DIAGNOSIS: Right pleural effusion. ANESTHESIA: 4 mL of 1% lidocaine. PROCEDURE: The patient was placed in a sitting upright position, the area below the right scapula was earlier localized by ultrasound, and it was prepared in a sterile fashion and drapes were applied. At the level of the marking, which is the 8th intercostal space and tip of the scapula, the area was locally anesthetized with lidocaine. Then, a 26- gauge needle was inserted at the same site, advanced into the pleural space until the fluid was localized. The fluid was noted to be serosanguineous. Then a small tiny incision was made at the same site, and the thoracentesis catheter and needle were used, advanced into the same site into the pleural space. Fluid was obtained and then the catheter was advanced into the pleural space and the needle was pulled out of the pleural space. Freely flowing fluid was removed, roughly 2600 mL of serosanguineous fluid was removed from the right pleural space. Procedure was well tolerated, no evidence of any immediate complications. A Band-Aid was applied, and the fluid was sent for different diagnostic studies. MMODL / IJN: [id number] /
[2018-02-23] MEDS ORDERED: PRIMIDONE 50 MG TAB PO STA (14:15)
[2018-02-23] MEDS: LORazepam 0.5 MG TAB PO PRN (14:19)
[2018-02-23] MEDS: TAFINLAR PO SCH (17:22)
[2018-02-23] MEDS ORDERED: ASPIRIN-ACET-CAFF 250-250-65MG 1 EACH TAB PO PRN (17:24)
[2018-02-23 17:37] LABS: Glucose,Whole Blood 138 mg/dL (75-99)
[2018-02-23 17:48] LABS: Total Protein, Body Fluid 3200 mg/dL
[2018-02-23 20:11] LABS: Hemoglobin A1C 6.2 % (4.0-6.0)
[2018-02-23] MEDS: FORMOTEROL FUMARATE 20 MCG/2 ML NEBU INHALATION SCH (20:40)
[2018-02-23] MEDS: BUDESONIDE 1 MG/2 ML NEBU INHALATION SCH (20:40)
[2018-02-23 20:53] LABS: Glucose,Whole Blood 163 mg/dL (75-99)
[2018-02-23] MEDS: PRIMIDONE 50 MG TAB PO SCH (21:35)
[2018-02-23] MEDS: cefTRIAXone IN SWFI 1,000 MG/10 ML SYRINGE IVP SCH (21:35)
[2018-02-23] MEDS: AZITHROMYCIN 500 MG in DEXTROSE 5% IN WATER 250 ML IVPB SCH ×2 (23:25)
[2018-02-24] MEDS: TAFINLAR PO SCH (05:38)
[2018-02-24] MEDS: LORazepam 0.5 MG TAB PO PRN (05:38)
[2018-02-24] MEDS: methylPREDNISolone SOD SUCCI 125 MG/2 ML VIAL IV SCH (05:38)
[2018-02-24 06:28] VITALS: BP 133/74; RESP 18; TEMP 98
[2018-02-24] MEDS: BUDESONIDE 1 MG/2 ML NEBU INHALATION SCH (07:27)
[2018-02-24 07:28] LABS: Glucose,Whole Blood 111 mg/dL (75-99)
[2018-02-24] MEDS: FORMOTEROL FUMARATE 20 MCG/2 ML NEBU INHALATION SCH (07:29)
[2018-02-24] MEDS: IPRATROPIUM-ALBUTEROL 3 ML NEB INHALATION SCH ×2 (07:30→11:17)
[2018-02-24] MEDS: INSULIN ASPART 100 UNIT/ML 1 ML 10 ML VIAL SQ SCH (08:55)
[2018-02-24] MEDS: AZITHROMYCIN 500 MG in DEXTROSE 5% IN WATER 250 ML IVPB SCH ×2 (08:57)
[2018-02-24] MEDS: PRIMIDONE 50 MG TAB PO SCH (08:57)
[2018-02-24] MEDS: ASPIRIN 81 MG PO SCH (08:57)
[2018-02-24] MEDS: NICOTINE 21MG/24HR PATCH TRANSDERM SCH (08:57)
[2018-02-24] MEDS ORDERED: TRAMETINIB DIMETHYL SULFOXIDE 2 MG PO SCH (09:00)
[2018-02-24] MEDS: cefTRIAXone IN SWFI 1,000 MG/10 ML SYRINGE IVP SCH (10:53)
--- NOTE | 2018-02-24 11:08 | P.CONS ---
History of Present Illness - Reason for Consult Consult date: 02/23/18 Pleural effusion, on treatment for metastatic malignant melanoma Requesting physician: Iván Hines Jr - Chief Complaint SOB - History of Present Illness Mr. Stephens is a pleasant 62 yo male with history of metastatic malignant melanoma, BRAF positive, on Mekinist and Tafinar since initial diagnosis in 2015 , here for increasing SOB due to pleural effusion. This started in 01/2018, and has been increasing. Work up revealed bilateral pleural effusion. He underwent thoracentesis with removal of 2.6L of dark sarousangenous fluid concerning for metastatic disease. His last staging scans were from 12/2017 which showed stable disease and no effusions at that time. He did receive a course of amoxicillin recently and also has a drug skin eruption, which is improving. No other complaints and he otherwise feels well. Continues to smoke, working on quiting. No alcohol or drugs. No known family history of malignancy. Review of Systems All systems: negative Constitutional: Reports as per HPI Past Medical History Past Medical History: Coronary Artery Disease (CAD), Cancer, COPD, Myocardial Infarction ([place]), Musculoskeletal Disorder, Osteoarthritis (OA), Sleep Apnea/CPAP /BIPAP Additional Past Medical History / Comment(s): Metastatic melanoma of the pelvis. ANNETTE Last Myocardial Infarction Date:: 2013 History of Any Multi-Drug Resistant Organisms: None Reported Past Surgical History: Heart Catheterization With Stent Additional Past Surgical History / Comment(s): melanoma excision from back. b/ l cataracts Past Anesthesia/Blood Transfusion Reactions: No Reported Reaction Date of Last Stent Placement:: 2013 Past Psychological History: Anxiety Additional Psychological History / Comment(s): Pt resides with his spouse who is currently under tx for TB. He has 2 grown son's in the home as well. Pt has been getting progressively weaker to the point of 2 weeks ago no longer able to walk and was crawling around the home. He has no home care agency. He has a very supportive family with mohit's and son's doing what they can and checking pt frequently. He already has a bath chair and BSC. He was in the process of getting a hospital bed/ bedside tray however it has not happened yet. Family would like patient case manager to see them. Smoking Status: Current some day smoker Past Alcohol Use History: None Reported Additional Past Alcohol Use History / Comment(s): Pt started smoking at age 13 and is a 2 1/2 ppd smoker. Past Drug Use History: None Reported - Past Family History Father Family Medical History: Cancer Additional Family Medical History / Comment(s): Father of lung cancer. He was a smoker. He had glaucoma and cataracts and macular degeneration. Mother Family Medical History: Cancer, COPD Additional Family Medical History / Comment(s): Mother had breast cancer. She was an alcoholic. Medications and Allergies Home Medications Medication Instructions Recorded Confirmed Type Tafinlar 3 tab PO BID 10/07/15 02/22/18 History Trametinib Dimethyl Sulfoxide 2 mg PO DAILY 10/07/15 02/22/18 History [Mekinist] Aspirin EC [Ecotrin] 325 mg PO DAILY 11/09/15 02/22/18 History HYDROcodone/APAP 10-325MG [[place] 1 tab PO Q6H PRN 11/09/15 02/22/18 History 10-325] Sertraline [Zoloft] 100 mg PO HS 11/09/15 02/22/18 History traZODone HCL [Desyrel] 100 mg PO HS tab 11/12/15 02/22/18 Rx Albuterol Inhaler [Ventolin Hfa 2 puff INHALATION RT-Q6H PRN 02/22/18 02/22/18 History Inhaler] LORazepam [Ativan] 1 mg PO DAILY PRN 02/22/18 02/22/18 History Montelukast [Singulair] 10 mg PO DAILY 02/22/18 02/22/18 History Primidone [Mysoline] 50 mg PO BID 02/22/18 02/22/18 History Temazepam [Restoril] 30 mg PO HS 02/22/18 02/22/18 History diphenhydrAMINE HCL [Benadryl] 25 mg PO HS PRN 02/22/18 02/22/18 History fentaNYL 25MCG/HR PATCH [Duragesic 1 patch TRANSDERM Q72H 02/22/18 02/23/18 History 25MCG/HR] fentaNYL 100MCG/HR PATCH 1 patch TRANSDERM Q72H 02/23/18 02/23/18 History [Duragesic 100MCG/HR] Allergies Allergy/AdvReac Type Severity Reaction Status Date / Time oxycodone HCl AdvReac Confusion Verified 02/22/18 17:53 [From OxyContin] Morphine Family AdvReac Family Uncoded 02/22/18 16:36 history of altered mental status Physical Exam Vitals: Vital Signs Temp Pulse Pulse Resp BP Pulse Ox 02/23/18 21:06 80 02/23/18 20:53 78 02/23/18 20:52 80 02/23/18 20:40 78 02/23/18 17:16 80 02/23/18 17:05 94 L 02/23/18 17:01 82 02/23/18 15:17 98.0 F 71 18 110/61 96 02/23/18 13:12 84 02/23/18 13:03 88 02/23/18 07:17 98.3 F 82 18 112/76 95 Intake and Output 02/23/18 02/23/18 02/23/18 06:59 14:59 22:59 Intake Total 600 600 Output Total 250 Balance -250 600 600 Intake: Oral 600 600 Output: Urine 250 Other: # Voids 4 1 # Bowel Movements 1 Weight 111.584 kg Constitutional: No acute distress. Obese. HEENT: EOMI. Mucosa moist. Neck: Neck supple. Lymph: No neck/cervical LAD. Lungs: CTA-B without wheezing or rhonchi. Heart: RRR without murmurs. No LE edema. Abdomen: Soft, nontender, nondistended, with positive bowel sounds. MSK: 4/4 strength in all 4 extremities. Neuro: Alert and oriented x 3. No obvious gross neurologic deficits. Skin: No jaundice. Diffuse maculopapular rash. Psych: Appropriate affect. Results CBC & Chem 7: 02/22/18 17:24 02/22/18 17:24 Labs: Abnormal Lab Results - Last 24 Hours (Table) 02/22/18 02/23/18 02/23/18 Range/Units 17:24 11:53 16:45 POC Glucose (mg/dL) 108 H 138 H (75-99) mg/dL Total Protein 5.8 L (6.3-8.2) g/dL 02/23/18 Range/Units 20:49 POC Glucose (mg/dL) 163 H (75-99) mg/dL Total Protein (6.3-8.2) g/dL Microbiology - Last 24 Hours (Table) 02/22/18 17:24 Blood Culture Gram Stain - Preliminary Blood Blood Culture - Preliminary 02/22/18 17:24 Blood Culture - Preliminary Blood No Growth after 24 hours 02/23/18 11:30 Body Fluid Culture - Preliminary Pleural Fluid Chest x-ray: report reviewed CT scan - abdomen: report reviewed (12/2017) CT scan - chest: report reviewed (12/2017) Assessment and Plan Assessment: 1. Metastatic malignant melanoma 2. Bilateral pleural effusion Plan: Mr. Stephens is a pleasant 62 yo male with metastatic malignant melanoma diagnosed in 2015, stable on mekinist/tafinlar, last restaging CT CAP from 2017, who has been having increasing SOB that started 01/2018. He ended up in the hospital for his worsening SOB, found to have new bilateral pleural effusion. 2.6L of pleural fluid drained, bloody and dark, cytology pending but appears exudative and concerning for metastatic disease. Last restaging CT was from 12/2017, which was stable without signs of effusion. SOB began 1 month ago in 01/2018. Likely this is due to disease recurrence although cannot rule out infection or other causes. Will await cytology. Pt will need restaging CT CAP (can be done OPD if otherwise ready for discharge). He should follow up with Dr. Henriquez to discuss results of his cytology and CT and discuss possible need of alternate therapy of his melanoma (ie immunotherapy). Discussed with pt and he is agreeable to the plan. I also counseled him on smoking cessation. Will continue to work on this.
[2018-02-24 11:29] VITALS: PULSE 88
--- NOTE | 2018-02-24 11:39 | P.PN ---
Subjective Progress Note Date: 02/24/18 Principal diagnosis: Pleural effusion status post thoracentesis significant amount of serosanguineous ooze a removed patient tolerated the procedure well awaiting cytology Mr. Acuña is a patient well-known to my practice with a outstanding history of metastatic melanoma the back patient was diagnosed and treated in 2006 and is currently to meds for chemotherapy. Patient had has resumed cigarette smoking and we discussed this at length Objective - Vital Signs Vital signs: Vital Signs Temp 98.0 F 02/24/18 06:27 Pulse 88 02/24/18 11:29 Resp 18 02/24/18 06:27 BP 133/74 02/24/18 06:27 Pulse Ox 95 02/24/18 07:30 Intake & Output 02/23/18 02/24/18 02/24/18 18:59 06:59 18:59 Intake Total 1200 Balance 1200 Weight 111.584 kg Intake: Oral 1200 Other: Voiding Method Toilet Urinal # Voids 1 1 # Bowel Movements 1 - Exam General: Weakness and malaise HEENT: [PERRL. EOMI. No pharyngeal erythema or exudate.] Neck: [No adenopathy.] Cardiac: [Heart regular in rate and rhythm. No S3. No S4. No clicks, rubs. No murmur.] Lungs: Mild rhonchi however respiratory efforts have significantly improved and bilateral auscultation of lungs have significantly improved as well Abdomen: [No mass. No organomegaly. Bowel sounds presnt and normoactive in all 4 quadrants.] Extremes: [No edema no cyanosis no claudication normal pulses] : [] Musculoskeletal: [No joint erythema, edema or tenderness.] Skin: [No rash.] Neurologic: [No lateralizing deficits. CN II - XII grossly intact.] Lymphatic: [No adenopathy.] - Labs CBC & Chem 7: 02/22/18 17:24 02/22/18 17:24 Labs: Abnormal Lab Results - Last 24 Hours (Table) 02/22/18 02/23/18 02/23/18 Range/Units 17:24 11:53 16:45 POC Glucose (mg/dL) 108 H 138 H (75-99) mg/dL Total Protein 5.8 L (6.3-8.2) g/dL 02/23/18 02/24/18 Range/Units 20:49 07:19 POC Glucose (mg/dL) 163 H 111 H (75-99) mg/dL Total Protein (6.3-8.2) g/dL Microbiology - Last 24 Hours (Table) 02/23/18 11:30 Gram Stain - Preliminary Pleural Fluid Body Fluid Culture - Preliminary 02/22/18 17:24 Blood Culture - Final Blood 02/22/18 17:24 Blood Culture Gram Stain - Preliminary Blood Blood Culture - Preliminary Assessment and Plan (1) Erythematous rash Narrative/Plan: Resolving Current Visit: Yes Status: Acute Code(s): R21 - RASH AND OTHER NONSPECIFIC SKIN ERUPTION SNOMED Code(s): 668445950 (2) Pleural effusion Narrative/Plan: Thoracentesis performed significant amount of serosanguineous exudate aspirated. Awaiting cytology Current Visit: Yes Status: Acute Code(s): J90 - PLEURAL EFFUSION, NOT ELSEWHERE CLASSIFIED SNOMED Code(s): 06843432 (3) Metastatic melanoma Narrative/Plan: Fluid from thoracentesis pending cytology results Current Visit: No Status: Chronic Priority: High Code(s): C79.9 - SECONDARY MALIGNANT NEOPLASM OF UNSPECIFIED SITE SNOMED Code(s): 005493039 Plan: Pulmonary warehouse consultant ensued patient is being prepped for a ultrasound guided thoracentesis of pleural effusion for both diagnostic and therapeutic purposes Patient is also receiving antibiotic for what appears to be a pulmonary infiltrate Consultation with heme on Also being scheduled secondary to current history of malignant melanoma patient is on rescue therapy currently for same Cytology results pending Time with Patient: Greater than 30
--- NOTE | 2018-02-24 11:51 | P.DS ---
Providers Date of admission: 02/24/18 08:41 Expected date of discharge: 02/24/18 Attending physician: Iván Hines Consults: 02/22/18 19:03 Consult Physician Urgent Consulting Provider: Natalio Henriquez Consult Reason/Comments: Melanoma Do you want consulting provider notified?: Yes Consult Physician Urgent Consulting Provider: Rosalind Adorno Consult Reason/Comments: Pleural effusion Do you want consulting provider notified?: Yes Primary care physician: Iván Hines - Discharge Diagnosis(es) (1) Erythematous rash General: [Patient awake, alert and oriented times 3. Patient in no acute distress.] HEENT: [PERRL. EOMI. No pharyngeal erythema or exudate.] Neck: [No adenopathy.] Cardiac: [Heart regular in rate and rhythm. No S3. No S4. No clicks, rubs. No murmur.] Lungs: [Clear to auscultation bilaterally.] Abdomen: [No mass. No organomegaly. Bowel sounds presnt and normoactive in all 4 quadrants.] Extremes: [No edema no cyanosis no claudication normal pulses] : [] Musculoskeletal: [No joint erythema, edema or tenderness.] Skin: [No rash.] Neurologic: [No lateralizing deficits. CN II - XII grossly intact.] Lymphatic: [No adenopathy.] Urticaria secondary to probable penicillin resolving no respiratory issues at all following pleural centesis Current Visit: Yes Status: Acute (2) Pleural effusion Current Visit: Yes Status: Acute (3) Metastatic melanoma Current Visit: No Status: Chronic Priority: High Patient Condition at Discharge: Fair Plan - Discharge Summary Discharge Rx Participant: Yes New Discharge Prescriptions: No Action Trametinib Dimethyl Sulfoxide [Mekinist] 2 mg PO DAILY Tafinlar 3 tab PO BID HYDROcodone/APAP 10-325MG [[place] 10-325] 1 tab PO Q6H PRN PRN Reason: Pain Aspirin EC [Ecotrin] 325 mg PO DAILY Sertraline [Zoloft] 100 mg PO HS traZODone HCL [Desyrel] 100 mg PO HS tab Albuterol Inhaler [Ventolin Hfa Inhaler] 2 puff INHALATION RT-Q6H PRN PRN Reason: Shortness Of Breath Temazepam [Restoril] 30 mg PO HS Primidone [Mysoline] 50 mg PO BID Montelukast [Singulair] 10 mg PO DAILY LORazepam [Ativan] 1 mg PO DAILY PRN PRN Reason: Anxiety fentaNYL 25MCG/HR PATCH [[place]ages[place] 25MCG/HR] 1 patch TRANSDERM Q72H diphenhydrAMINE HCL [Benadryl] 25 mg PO HS PRN PRN Reason: Allergic Reaction fentaNYL 100MCG/HR PATCH [Duragesic 100MCG/HR] 1 patch TRANSDERM Q72H Discharge Medication List Tafinlar 3 tab PO BID 10/07/15 [History] Trametinib Dimethyl Sulfoxide [[place]inist] 2 mg PO DAILY 10/07/15 [History] Aspirin EC [Ecotrin] 325 mg PO DAILY 11/09/15 [History] HYDROcodone/APAP 10-325MG [[place] 10-325] 1 tab PO Q6H PRN 11/09/15 [History] Sertraline [Zoloft] 100 mg PO HS 11/09/15 [History] traZODone HCL [Desyrel] 100 mg PO HS tab 11/12/15 [Rx] Albuterol Inhaler [Ventolin Hfa Inhaler] 2 puff INHALATION RT-Q6H PRN 02/22/18 [ History] LORazepam [Ativan] 1 mg PO DAILY PRN 02/22/18 [History] Montelukast [Singulair] 10 mg PO DAILY 02/22/18 [History] Primidone [Mysoline] 50 mg PO BID 02/22/18 [History] Temazepam [Restoril] 30 mg PO HS 02/22/18 [History] diphenhydrAMINE HCL [Benadryl] 25 mg PO HS PRN 02/22/18 [History] fentaNYL 25MCG/HR PATCH [[place]ages[place] 25MCG/HR] 1 patch TRANSDERM Q72H 02/22/18 [ History] fentaNYL 100MCG/HR PATCH [Duragesic 100MCG/HR] 1 patch TRANSDERM Q72H 02/23/18 [ History] Follow up Appointment(s)/Referral(s): Iván Hines Jr, [Primary Care Provider] - 1-2 days
--- NOTE | 2018-02-24 14:06 | P.PN ---
Subjective Progress Note Date: 02/24/18 Principal diagnosis: Acute hypoxic respiratory failure secondary to large right-sided pleural effusion, malignant unless proven otherwise. This is a very pleasant 62-year-old gentleman who follows with Dr. Hines as his primary care physician. He has a history of anemia of chronic disease, coronary disease, chronic obstructive pulmonary disease, osteoarthritis, obstructive sleep apnea not utilizing CPAP in the outpatient setting, degenerative disc disease, anxiety. He also has a 50 year history of chronic tobacco dependence. His original melanoma was on his back and had surgery with wide excision and no adjuvant therapy in 2006. He was diagnosed with recurrent metastatic melanoma back in 2016. This was found on his left hip and right axillary node. He has been under the care of Dr. Henriquez and is currently on Mekinist and Tafinlar. He had developed upper respiratory and reaction type symptoms. He thought he had a cold was treating with [id number]. He then went to an urgent care and was treated with amoxicillin and steroids. Following his completion of the amoxicillin he did break out in hives and has a rash on his trunk and upper extremities. He was also seen at Dr. Henriquez's office by his nurse practitioner Petra and was started on Singulair. He presented here yesterday to the emergency room with complaints of increasing shortness of breath cough and congestion. His x-ray showed a new right lower lobe consolidation and pleural effusion. Computed tomography scan revealed a new moderate to large right pleural effusion with surrounding atelectasis. There is also new mediastinal adenopathy. There is a noted 2 mm and 7 mm pulmonary nodules in the left lung. He is seen today in consultation on the regular medical floor. He is awake and alert in mild respiratory distress. He has been afebrile. Maintaining O2 saturations in the upper 90s on 2 L/m per nasal cannula. He's been hemodynamically stable. White count 10.5. Hemoglobin 11.6. Creatinine 0.60. Patient was reevaluated today on 02/24/2018, doing quite well, relatively asymptomatic, asking if he could be discharged home since he is feeling much better compared to how he felt yesterday. No cough no wheezing no shortness of breath no chest pain. Patient was made aware that the results of his pleural effusion are pending, and as far as I'm concerned she could be discharged home if agreeable with his primary care admitting physician. Patient was seen by oncology yesterday, and they are very well aware that the pleural effusion is concerning for metastatic disease. I believe the pleural effusion is malignant unless proven otherwise. However the final pathology is pending. Objective - Vital Signs Vital signs: Vital Signs Temp 98.0 F 02/24/18 06:27 Pulse 88 02/24/18 11:29 Resp 18 02/24/18 06:27 BP 133/74 02/24/18 06:27 Pulse Ox 95 02/24/18 07:30 Intake & Output 02/23/18 02/24/18 02/24/18 18:59 06:59 18:59 Intake Total 1200 Balance 1200 Weight 111.584 kg Intake: Oral 1200 Other: Voiding Method Toilet Urinal # Voids 1 1 # Bowel Movements 1 - Exam - Constitutional General appearance: Revealed a 62-year-old white male, in no form of distress. - EENT Eyes: EOMI, PERRLA, poor dentition ENT: hearing grossly normal Ears: bilateral: normal - Neck Neck: normal ROM Carotids: bilateral: upstroke normal Thyroid: bilateral: normal size - Respiratory Respiratory: Lear breath sound bilaterally, no crackles or rhonchi or wheezes, no chest wall tenderness. - Cardiovascular Rhythm: regular Heart sounds: normal: S1, S2 - Gastrointestinal General gastrointestinal: normal bowel sounds Localized gastrointestinal: mass: epigastric periumbilical - Genitourinary Male genitourinary: left inguinal hernia - Integumentary Integumentary: normal turgor, rash - Neurologic Neurologic: CNII-XII intact - Musculoskeletal Musculoskeletal: generalized weakness - Psychiatric Psychiatric: A&O x's 3, appropriate affect, intact judgment & insight - Labs CBC & Chem 7: 02/22/18 17:24 02/22/18 17:24 Labs: Abnormal Lab Results - Last 24 Hours (Table) 02/23/18 02/23/18 02/24/18 Range/Units 16:45 20:49 07:19 POC Glucose (mg/dL) 138 H 163 H 111 H (75-99) mg/dL Microbiology - Last 24 Hours (Table) 02/23/18 11:30 Gram Stain - Preliminary Pleural Fluid Body Fluid Culture - Preliminary 02/22/18 17:24 Blood Culture - Final Blood 07/20/18 17:24 Blood Culture Gram Stain - Preliminary Blood Blood Culture - Preliminary Assessment and Plan Assessment: #1 Acute hypoxic respiratory failure secondary to large right pleural effusion. Status post thoracentesis today with 2600 dark sanguinous fluid returned. #2 Large right pleural effusion, suspect metastatic. #3 Metastatic melanoma involving the left pelvic area and right axillary node detected in 2016. Maintained on Mekinist and Tafinlar. Original melanoma on his back with surgical resection only in 2006. #4 Acute exacerbation of chronic obstructive pulmonary disease. #5 Chronic and ongoing 50 year tobacco dependence. #6 Obstructive sleep apnea not maintained on CPAP in the outpatient setting. #7 Coronary artery disease with previous stent placement 2003. #8 Osteoarthritis. #9 Erythematous rash of unclear etiology. The patient was recently on amoxicillin possible delayed reaction. He does state he has had amoxicillin the past without reaction. Recommendation: Agree with discharge planning, follow-up with me and with the oncologist on outpatient basis. Patient was made aware that he may require Pleurx catheter placement in the future. Time with Patient: Less than 30
== END 2018-02-24 12:48 | disposition home or self-care (01) | DRG 843 ==
LOC: EC 15:52 → 4MS4W 19:06 → OBSVTOIN 02-24 08:41
PROVIDERS: ADMIT Family Medicine; ATTEND Family Medicine
PROC: 0W993ZX Drainage of Right Pleural Cavity, Percutaneous Approach, Diagnostic (ICD-10-PCS; principal; 2018-02-23)
DX: C79.89 Secondary malignant neoplasm of other specified sites (principal); J96.01 Acute respiratory failure with hypoxia; J44.1 Chronic obstructive pulmonary disease with (acute) exacerbation; J98.11 Atelectasis; J91.0 Malignant pleural effusion; D63.8 Anemia in other chronic diseases classified elsewhere; F17.210 Nicotine dependence, cigarettes, uncomplicated; F41.9 Anxiety disorder, unspecified; G47.33 Obstructive sleep apnea (adult) (pediatric); I25.10 Atherosclerotic heart disease of native coronary artery without angina pectoris; I25.2 Old myocardial infarction; M19.90 Unspecified osteoarthritis, unspecified site; R21 Rash and other nonspecific skin eruption; R59.0 Localized enlarged lymph nodes; R91.8 Other nonspecific abnormal finding of lung field; T36.0X5A Adverse effect of penicillins, initial encounter; E66.9 Obesity, unspecified; Z68.33 Body mass index [BMI] 33.0-33.9, adult; Z79.82 Long term (current) use of aspirin; Z79.899 Other long term (current) drug therapy; Z95.5 Presence of coronary angioplasty implant and graft; Z85.820 Personal history of malignant melanoma of skin; Z71.6 Tobacco abuse counseling; Z98.42 Cataract extraction status, left eye; Z98.41 Cataract extraction status, right eye; Z96.1 Presence of intraocular lens; Z82.5 Family history of asthma and other chronic lower respiratory diseases; Z80.3 Family history of malignant neoplasm of breast; Z80.1 Family history of malignant neoplasm of trachea, bronchus and lung; Z83.511 Family history of glaucoma; Z81.1 Family history of alcohol abuse and dependence; Z83.518 Family history of other specified eye disorder; Y92.009 Unspecified place in unspecified non-institutional (private) residence as the place of occurrence of the external cause
CPT/HCPCS: 36415; 71045; 71046; 76604; 80053; 82550; 82553; 82945; 83036; 83615; 83735; 84155; 84157; 84484; 85025; 85610; 85730; 87040; 87070; 87077; 87186; 87205; 87324; 88108; 88305; 88341; 88342; 89050; 93005; 94640; 94760; 99285

== ENCOUNTER 2018-02-28 17:02 | Inpatient (IN) | payer OTHER ==
[2018-02-28] MEDS ORDERED: IPRATROPIUM-ALBUTEROL 3 ML NEB INHALATION STA (18:23)
--- NOTE | 2018-02-28 18:25 | ED ---
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 He was seen by his oncologist today sent here for evaluation. Patient does require a Pleurx catheter. He will require a thoracentesis again. He denies any other complaints at this time MD Complaint: shortness of breath, cough - Related Data Home Medications Medication Instructions Recorded Confirmed Tafinlar 3 tab PO BID 10/07/15 02/28/18 Trametinib Dimethyl Sulfoxide 2 mg PO DAILY 10/07/15 02/28/18 [Mekinist] Aspirin EC [Ecotrin] 325 mg PO DAILY 11/09/15 02/28/18 HYDROcodone/APAP 10-325MG [[place] 1 tab PO Q6H PRN 11/09/15 02/28/18 10-325] Sertraline [Zoloft] 100 mg PO HS 11/09/15 02/28/18 Albuterol Inhaler [Ventolin Hfa 2 puff INHALATION RT-Q6H PRN 02/22/18 02/28/18 Inhaler] LORazepam [Ativan] 1 mg PO DAILY PRN 02/22/18 02/28/18 Montelukast [Singulair] 10 mg PO DAILY 02/22/18 02/28/18 Primidone [Mysoline] 50 mg PO BID 02/22/18 02/28/18 Temazepam [Restoril] 30 mg PO HS 02/22/18 02/28/18 diphenhydrAMINE HCL [Benadryl] 25 mg PO HS PRN 02/22/18 02/28/18 fentaNYL 25MCG/HR PATCH [Duragesic 1 patch TRANSDERM Q72H 02/22/18 02/28/18 25MCG/HR] fentaNYL 100MCG/HR PATCH 1 patch TRANSDERM Q72H 02/23/18 02/28/18 [Duragesic 100MCG/HR] Previous Rx's Medication Instructions Recorded traZODone HCL [Desyrel] 100 mg PO HS tab 11/12/15 Allergies Allergy/AdvReac Type Severity Reaction Status Date / Time oxycodone HCl AdvReac Confusion Verified 02/28/18 18:41 [From OxyContin] Morphine Family AdvReac Family Uncoded 02/28/18 17:17 history of altered mental status Review of Systems ROS Statement: Those systems with pertinent positive or pertinent negative responses have been documented in the HPI. ROS Other: All systems not noted in ROS Statement are negative. Past Medical History Past Medical History: Coronary Artery Disease (CAD), Cancer, COPD, Myocardial Infarction ([place]), Musculoskeletal Disorder, Osteoarthritis (OA), Sleep Apnea/CPAP /BIPAP Additional Past Medical History / Comment(s): Metastatic melanoma of the pelvis. ANNETTE Last Myocardial Infarction Date:: 2013 History of Any Multi-Drug Resistant Organisms: None Reported Past Surgical History: Heart Catheterization With Stent Additional Past Surgical History / Comment(s): melanoma excision from back. b/ l cataracts Past Anesthesia/Blood Transfusion Reactions: No Reported Reaction Date of Last Stent Placement:: 2013 Past Psychological History: Anxiety Smoking Status: Current some day smoker Past Alcohol Use History: None Reported Past Drug Use History: None Reported - Past Family History Father Family Medical History: Cancer Additional Family Medical History / Comment(s): Father of lung cancer. He was a smoker. He had glaucoma and cataracts and macular degeneration. Mother Family Medical History: Cancer, COPD Additional Family Medical History / Comment(s): Mother had breast cancer. She was an alcoholic. General Exam - General Exam Comments Initial Comments: This a well-developed well-nourished awake alert oriented times 3 male Limitations: no limitations General appearance: alert, in no apparent distress Head exam: Present: atraumatic, normocephalic, normal inspection Eye exam: Present: normal appearance, PERRL, EOMI. Absent: scleral icterus, conjunctival injection, periorbital swelling ENT exam: Present: normal exam, mucous membranes moist Neck exam: Present: normal inspection. Absent: tenderness, meningismus, lymphadenopathy Respiratory exam: Present: wheezes (Wheezing in the left lung [place] with dullness over the right lung field consistent with pleural effusion.), decreased breath sounds. Absent: respiratory distress, rales, rhonchi, stridor Cardiovascular Exam: Present: regular rate, normal rhythm, normal heart sounds. Absent: systolic murmur, diastolic murmur, rubs, gallop, clicks GI/Abdominal exam: Present: soft, normal bowel sounds. Absent: distended, tenderness, guarding, rebound, rigid Extremities exam: Present: normal inspection, full ROM, normal capillary refill. Absent: tenderness, pedal edema, joint swelling, calf tenderness Back exam: Present: normal inspection Neurological exam: Present: alert, oriented X3, CN II-XII intact Psychiatric exam: Present: normal affect, normal mood Skin exam: Present: warm, dry, intact, normal color. Absent: rash Course Vital Signs 02/28/18 02/28/18 02/28/18 17:13 18:39 18:43 Temperature 98.3 F Pulse Rate 94 85 Respiratory 20 18 Rate Blood Pressure 107/65 O2 Sat by Pulse 92 L Oximetry 02/28/18 02/28/18 19:17 20:26 Temperature Pulse Rate 92 98 Respiratory 20 22 Rate Blood Pressure 139/63 145/68 O2 Sat by Pulse 97 95 Oximetry Medical Decision Making - Medical Decision Making I did see discuss case Dr. Henriquez. Patient was to be admitted directly no rooms were available patient he comes the emergency Department due to the shortness of breath. Patient will be admitted to Dr. Sigala who was previously notified by Dr. Henriquez. - Lab Data Result diagrams: 02/28/18 18:28 02/28/18 18:28 Lab Results 02/28/18 02/28/18 02/28/18 Range/Units 18:28 18:28 18:28 WBC 9.2 (3.8-10.6) k/uL RBC 4.42 (4.30-5.90) m/uL Hgb 11.2 L (13.0-17.5) gm/dL Hct 35.9 L (39.0-53.0) % MCV 81.1 (80.0-100.0) fL MCH 25.4 (25.0-35.0) pg MCHC 31.3 (31.0-37.0) g/dL RDW 14.7 (11.5-15.5) % Plt Count 605 H (150-450) k/uL Neutrophils % 85 % Lymphocytes % 7 % Monocytes % 5 % Eosinophils % 2 % Basophils % 0 % Neutrophils # 7.9 H (1.3-7.7) k/uL Lymphocytes # 0.6 L (1.0-4.8) k/uL Monocytes # 0.5 (0-1.0) k/uL Eosinophils # 0.2 (0-0.7) k/uL Basophils # 0.0 (0-0.2) k/uL PT (9.0-12.0) sec INR (<1.2) APTT (22.0-30.0) sec Sodium 133 L (137-145) mmol/L Potassium 4.9 (3.5-5.1) mmol/L Chloride 94 L (98-107) mmol/L Carbon Dioxide 32 H (22-30) mmol/L Anion Gap 7 mmol/L BUN 13 (9-20) mg/dL Creatinine 0.60 L (0.66-1.25) mg/dL Est GFR (CKD-EPI)AfAm >90 (>60 ml/min/1.73 sqM) Est GFR (CKD-EPI)NonAf >90 (>60 ml/min/1.73 sqM) Glucose 94 (74-99) mg/dL Calcium 9.1 (8.4-10.2) mg/dL Magnesium 2.3 (1.6-2.3) mg/dL Total Bilirubin 0.2 (0.2-1.3) mg/dL AST 29 (17-59) U/L ALT 44 (21-72) U/L Alkaline Phosphatase 126 (38-126) U/L Total Creatine Kinase 74 (55-170) U/L CK-MB (CK-2) 1.8 (0.0-2.4) ng/mL CK-MB (CK-2) Rel Index 2.4 Troponin I <0.012 (0.000-0.034) ng/mL Total Protein 5.7 L (6.3-8.2) g/dL Albumin 2.9 L (3.5-5.0) g/dL 02/28/ Range/Units 18:28 WBC (3.8-10.6) k/uL RBC (4.30-5.90) m/uL Hgb (13.0-17.5) gm/dL Hct (39.0-53.0) % MCV (80.0-100.0) fL MCH (25.0-35.0) pg MCHC (31.0-37.0) g/dL RDW (11.5-15.5) % Plt Count (150-450) k/uL Neutrophils % % Lymphocytes % % Monocytes % % Eosinophils % % Basophils % % Neutrophils # (1.3-7.7) k/uL Lymphocytes # (1.0-4.8) k/uL Monocytes # (0-1.0) k/uL Eosinophils # (0-0.7) k/uL Basophils # (0-0.2) k/uL PT 9.8 (9.0-12.0) sec INR 1.0 (<1.2) APTT 26.0 (22.0-30.0) sec Sodium (137-145) mmol/L Potassium (3.5-5.1) mmol/L Chloride (98-107) mmol/L Carbon Dioxide (22-30) mmol/L Anion Gap mmol/L BUN (9-20) mg/dL Creatinine (0.66-1.25) mg/dL Est GFR (CKD-EPI)AfAm (>60 ml/min/1.73 sqM) Est GFR (CKD-EPI)NonAf (>60 ml/min/1.73 sqM) Glucose (74-99) mg/dL Calcium (8.4-10.2) mg/dL Magnesium (1.6-2.3) mg/dL Total Bilirubin (0.2-1.3) mg/dL AST (17-59) U/L ALT (21-72) U/L Alkaline Phosphatase (38-126) U/L Total Creatine Kinase (55-170) U/L CK-MB (CK-2) (0.0-2.4) ng/mL CK-MB (CK-2) Rel Index Troponin I (0.000-0.034) ng/mL Total Protein (6.3-8.2) g/dL Albumin (3.5-5.0) g/dL - EKG Data -: EKG Interpreted by Me (EKG shows normal sinus rhythm 83. Interval 128 QRS duration 94 QT since QT) - Radiology Data Radiology results: report reviewed (I did review the imaging and reports patient does have recurrence of the right pleural effusion.), image reviewed Disposition Clinical Impression: Recurrent pleural effusion on right, COPD exacerbation, Melanoma Disposition: ADMITTED IP TO THIS HOSP Referrals: Iván Hines Jr, [Primary Care Provider] - 1-2 days
[2018-02-28 19:20] LABS: Basophils % (A) 0 %; Eosinophils # (A) 0.2 k/uL (0-0.7); Eosinophils % (A) 2 %; HCT 35.9 % (39.0-53.0); HGB 11.2 gm/dL (13.0-17.5); Lymphocytes # (A) 0.6 k/uL (1.0-4.8); Lymphocytes % (A) 7 %; MCH 25.4 pg (25.0-35.0); MCHC 31.3 g/dL (31.0-37.0); MCV 81.1 fL (80.0-100.0); Mean Platelet Volume 6.2; Monocytes # (A) 0.5 k/uL (0-1.0); Monocytes % (A) 5 %; Neutrophils # (A) 7.9 k/uL (1.3-7.7); Neutrophils % (A) 85 %; Platelet Count 605 k/uL (150-450); RBC 4.42 m/uL (4.30-5.90); RDW 14.7 % (11.5-15.5); WBC 9.2 k/uL (3.8-10.6)
[2018-02-28 19:29] LABS: ALT 44 U/L (21-72); AST 29 U/L (17-59); Albumin 2.9 g/dL (3.5-5.0); Alkaline Phosphatase 126 U/L (38-126); Anion Gap 7 mmol/L; Blood Urea Nitrogen 13 mg/dL (9-20); Calcium 9.1 mg/dL (8.4-10.2); Carbon Dioxide 32 mmol/L (22-30); Chloride 94 mmol/L (98-107); Glucose 94 mg/dL (74-99); Magnesium 2.3 mg/dL (1.6-2.3); Potassium 4.9 mmol/L (3.5-5.1); Sodium 133 mmol/L (137-145); Total Bilirubin 0.2 mg/dL (0.2-1.3); Total Protein 5.7 g/dL (6.3-8.2)
[2018-02-28 19:32] LABS: Creatine Kinase 74 U/L (55-170)
[2018-02-28 19:36] LABS: Prothrombin Time 9.8 sec (9.0-12.0)
--- NOTE | 2018-02-28 19:43 | XR ---
EXAMINATION: XR chest 2V DATE AND TIME: 02/28/2018 7:03 PM ORDERING PROVIDER: Derik Cuevas MD CLINICAL INDICATION: difficulty breathing TECHNIQUE: PA and lateral COMPARISON: 02/23/2018 DESCRIPTION: There is no pneumothorax. The previously seen right pleural effusion has increased consi derably since the prior study 5 days ago, it is now at the level of the right hilum. The right upper lung zone is clear, the right mid and lower lung is not inflated. Mild rightward shift of the airway system with right middle and right lower lobe atelectasis. The left lung is clear, and the left pleural space is negative. The cardiomediastinal silhouette and bones and soft tissues are unremarkable. IMPRESSION: INCREASING RIGHT PLEURAL EFFUSION.
[2018-02-28 19:45] LABS: Creatine Kinase MB 1.8 ng/mL (0.0-2.4); Troponin I <0.012 ng/mL (0.000-0.034)
[2018-02-28] MEDS ORDERED: HYDROcodone/APAP 10-325MG 1 EACH TAB PO STA (20:25)
[2018-02-28] MEDS ORDERED: IPRATROPIUM-ALBUTEROL 3 ML NEB INHALATION PRN (21:28)
[2018-02-28] MEDS: IPRATROPIUM-ALBUTEROL 3 ML NEB INHALATION SCH (21:34)
[2018-02-28 22:45] VITALS: BMI 30.4
[2018-02-28] MEDS ORDERED: diphenhydrAMINE 25 MG CAP PO PRN (23:12)
[2018-02-28] MEDS ORDERED: SERTRALINE 100 MG TAB PO SCH (23:15)
[2018-02-28] MEDS: guaiFENesin 600 MG TABLET.ER PO SCH (23:39)
[2018-02-28] MEDS: NICOTINE 14MG/24HR PATCH TRANSDERM SCH (23:39)
[2018-03-01] MEDS ORDERED: IPRATROPIUM-ALBUTEROL 3 ML NEB INHALATION SCH
[2018-03-01] MEDS: HYDROcodone/APAP 10-325MG 1 EACH TAB PO PRN ×2 (02:05→09:59)
[2018-03-01 06:10] VITALS: BP 113/56; RESP 16; TEMP 98.3
[2018-03-01] MEDS: IPRATROPIUM-ALBUTEROL 3 ML NEB INHALATION SCH ×3 (07:14→15:41)
[2018-03-01] MEDS ORDERED: LORazepam 1 MG TAB PO PRN (08:34)
[2018-03-01] MEDS ORDERED: ALBUTEROL NEBULIZED 2.5 MG/3 ML INHALATION PRN (08:34)
[2018-03-01] MEDS ORDERED: MONTELUKAST 10 MG TAB PO SCH (09:00)
[2018-03-01] MEDS ORDERED: PRIMIDONE 50 MG TAB PO SCH (09:00)
[2018-03-01] MEDS ORDERED: Trametinib Dimethyl Sulfoxide [Mekinist] 2 MG PO SCH (09:00)
[2018-03-01] MEDS: guaiFENesin 600 MG TABLET.ER PO SCH (09:59)
[2018-03-01] MEDS: NICOTINE 14MG/24HR PATCH TRANSDERM SCH (09:59)
[2018-03-01] MEDS ORDERED: PANTOPRAZOLE 40 MG TABLET PO SCH (11:15)
--- NOTE | 2018-03-01 13:52 | P.GSCN ---
History of Present Illness Consult date: 03/01/18 Reason for Consult: Malignant pleural effusion, need for Pleurx catheter. Requesting physician: Natalio Henriquez History of present illness: This is a 62-year-old gentleman who follows with Dr. Iván Hines on an outpatient basis. He has a previous medical history of metastatic melanoma to the right long, status post thoracentesis 5 days ago, coronary artery disease, myocardial infarction, COPD, obstructive sleep apnea with home CPAP use, and occasional smoker. He presented to [facility] emergency room at the request of his oncologist after being seen in the office for complaints of shortness of breath with cough, no fever, chills, or night sweats. Plan was for thoracentesis and Pleurx catheter. Dr. Smith was consulted for Pleurx catheter placement. Review of Systems Review of systems was completed was negative except as noted. - Respiratory Reports cough, Reports dyspnea Past Medical History Past Medical History: Coronary Artery Disease (CAD), Cancer, COPD, Myocardial Infarction ([place]), Musculoskeletal Disorder, Osteoarthritis (OA), Sleep Apnea/CPAP /BIPAP Additional Past Medical History / Comment(s): Metastatic melanoma of the pelvis. ANNETTE Last Myocardial Infarction Date:: 2013 History of Any Multi-Drug Resistant Organisms: None Reported Past Surgical History: Heart Catheterization With Stent Additional Past Surgical History / Comment(s): melanoma excision from back, pelvic biopsy. b/l cataracts Past Anesthesia/Blood Transfusion Reactions: No Reported Reaction Date of Last Stent Placement:: 2003 Past Psychological History: Anxiety Smoking Status: Current every day smoker Past Alcohol Use History: None Reported Additional Past Alcohol Use History / Comment(s): Pt started smoking at age 13 and is a 2 1/2 ppd smoker. Past Drug Use History: None Reported - Past Family History Father Family Medical History: Cancer Additional Family Medical History / Comment(s): Father of lung cancer. He was a smoker. He had glaucoma and cataracts and macular degeneration. Mother Family Medical History: Cancer, COPD Additional Family Medical History / Comment(s): Mother had breast cancer. She was an alcoholic. Medications and Allergies Home Medications Medication Instructions Recorded Confirmed Type Tafinlar 3 tab PO BID 10/07/15 02/28/18 History Trametinib Dimethyl Sulfoxide 2 mg PO DAILY 10/07/15 02/28/18 History [Mekinist] Aspirin EC [Ecotrin] 325 mg PO DAILY 11/09/15 02/28/18 History HYDROcodone/APAP 10-325MG [[place] 1 tab PO Q6H PRN 11/09/15 02/28/18 History 10-325] Sertraline [Zoloft] 100 mg PO HS 11/09/15 02/28/18 History traZODone HCL [Desyrel] 100 mg PO HS tab 11/12/15 02/28/18 Rx Albuterol Inhaler [Ventolin Hfa 2 puff INHALATION RT-Q6H PRN 02/22/18 02/28/18 History Inhaler] LORazepam [Ativan] 1 mg PO DAILY PRN 02/22/18 02/28/18 History Montelukast [Singulair] 10 mg PO DAILY 02/22/18 02/28/18 History Primidone [Mysoline] 50 mg PO BID 02/22/18 02/28/18 History Temazepam [Restoril] 30 mg PO HS 02/22/18 02/28/18 History diphenhydrAMINE HCL [Benadryl] 25 mg PO HS PRN 02/22/18 02/28/18 History fentaNYL 25MCG/HR PATCH [Duragesic 1 patch TRANSDERM Q72H 02/22/18 02/28/18 History 25MCG/HR] fentaNYL 100MCG/HR PATCH 1 patch TRANSDERM Q72H 02/23/18 02/28/18 History [Duragesic 100MCG/HR] Allergies Allergy/AdvReac Type Severity Reaction Status Date / Time oxycodone HCl AdvReac Confusion Verified 02/28/18 18:41 [From OxyContin] Morphine Family AdvReac Family Uncoded 02/28/18 17:17 history of altered mental status Surgical - Exam Vital Signs Temp Pulse Resp BP Pulse Ox 98.3 F 94 20 107/65 92 L 02/28/18 17:13 02/28/18 17:13 02/28/18 17:13 02/28/18 17:13 02/28/18 17:13 - General well developed, well nourished, no distress, no pain - Eyes PERRL, normal ocular movement - ENT no hearing loss - Neck no masses, no bruits, trachea midline - Respiratory Lungs sounds diminished bilaterally, right greater than left with expiratory wheezes present. Respirations even, nonlabored. Currently on 2 L nasal cannula with oxygen saturations 94%. - Cardiovascular S1, S2 present. Regular rate and rhythm. Palpable peripheral pulses bilaterally. No edema present. No calf pain or tenderness noted. - Abdomen Abdomen: soft, non tender, bowel sounds - Genitourinary Deferred - Rectum Deferred - Integumentary no rash, no growths - Neurologic normal coordination, normal sensation - Musculoskeletal normal gait, normal posture - Psychiatric oriented to time, oriented to person, oriented to place, speech is normal, memory intact Results - Labs 02/28/18 18:28 02/28/18 18:28 Abnormal Lab Results - Last 24 Hours (Table) 02/28/18 02/28/18 Range/Units 18:28 18:28 Hgb 11.2 L (13.0-17.5) gm/dL Hct 35.9 L (39.0-53.0) % Plt Count 605 H (150-450) k/uL Neutrophils # 7.9 H (1.3-7.7) k/uL Lymphocytes # 0.6 L (1.0-4.8) k/uL Sodium 133 L (137-145) mmol/L Chloride 94 L (98-107) mmol/L Carbon Dioxide 32 H (22-30) mmol/L Creatinine 0.60 L (0.66-1.25) mg/dL Total Protein 5.7 L (6.3-8.2) g/dL Albumin 2.9 L (3.5-5.0) g/dL Diabetes panel 02/28/18 Range/Units 18:28 Sodium 133 L (137-145) mmol/L Potassium 4.9 (3.5-5.1) mmol/L Chloride 94 L (98-107) mmol/L Carbon Dioxide 32 H (22-30) mmol/L BUN 13 (9-20) mg/dL Creatinine 0.60 L (0.66-1.25) mg/dL Glucose 94 (74-99) mg/dL Calcium 9.1 (8.4-10.2) mg/dL AST 29 (17-59) U/L ALT 44 (21-72) U/L Alkaline Phosphatase 126 (38-126) U/L Total Protein 5.7 L (6.3-8.2) g/dL Albumin 2.9 L (3.5-5.0) g/dL Calcium panel 02/28/18 Range/Units 18:28 Calcium 9.1 (8.4-10.2) mg/dL Albumin 2.9 L (3.5-5.0) g/dL Pituitary panel 02/28/18 Range/Units 18:28 Sodium 133 L (137-145) mmol/L Potassium 4.9 (3.5-5.1) mmol/L Chloride 94 L (98-107) mmol/L Carbon Dioxide 32 H (22-30) mmol/L BUN 13 (9-20) mg/dL Creatinine 0.60 L (0.66-1.25) mg/dL Glucose 94 (74-99) mg/dL Calcium 9.1 (8.4-10.2) mg/dL Adrenal panel 02/28/18 Range/Units 18:28 Sodium 133 L (137-145) mmol/L Potassium 4.9 (3.5-5.1) mmol/L Chloride 94 L (98-107) mmol/L Carbon Dioxide 32 H (22-30) mmol/L BUN 13 (9-20) mg/dL Creatinine 0.60 L (0.66-1.25) mg/dL Glucose 94 (74-99) mg/dL Calcium 9.1 (8.4-10.2) mg/dL Total Bilirubin 0.2 (0.2-1.3) mg/dL AST 29 (17-59) U/L ALT 44 (21-72) U/L Alkaline Phosphatase 126 (38-126) U/L Total Protein 5.7 L (6.3-8.2) g/dL Albumin 2.9 L (3.5-5.0) g/dL - Imaging Chest x-ray: report reviewed, image reviewed CT scan - chest: report reviewed, image reviewed Assessment and Plan (1) Coronary artery disease Current Visit: Yes Status: Chronic Code(s): I25.10 - ATHSCL HEART DISEASE OF [place] CORONARY ARTERY W/O ANG PCTRS SNOMED Code(s): 71208051 (2) Previous myocardial infarction older than 8 weeks Current Visit: No Status: Resolved Code(s): I25.2 - OLD MYOCARDIAL INFARCTION SNOMED Code(s): 9995874 (3) Obstructive sleep apnea Current Visit: Yes Status: Chronic Code(s): G47.33 - OBSTRUCTIVE SLEEP APNEA (ADULT) (PEDIATRIC) SNOMED Code(s): 99995599 (4) COPD (chronic obstructive pulmonary disease) Current Visit: Yes Status: Chronic Code(s): J44.9 - CHRONIC OBSTRUCTIVE PULMONARY DISEASE, UNSPECIFIED SNOMED Code(s): 11910474 (5) Tobacco dependence Current Visit: Yes Status: Chronic Code(s): F17.200 - NICOTINE DEPENDENCE, UNSPECIFIED, UNCOMPLICATED SNOMED Code(s): 72433657 (6) Recurrent pleural effusion on right Current Visit: Yes Status: Acute Code(s): J90 - PLEURAL EFFUSION, NOT ELSEWHERE CLASSIFIED SNOMED Code(s): 95978453 (7) Metastatic melanoma Current Visit: Yes Status: Chronic Priority: High Code(s): C79.9 - SECONDARY MALIGNANT NEOPLASM OF UNSPECIFIED SITE SNOMED Code(s): 370438559 Plan: The patient was seen and examined at the bedside with Dr. Smith. Chart/ diagnostics reviewed. At this time there is not enough fluid for us to put in a Pleurx catheter safely. We would recommend against thoracentesis at this time to allow fluid to build up to the point where we can place a Pleurx catheter. This was discussed in detail with the patient and he is in agreement. Dr. Smith did discuss this with Dr. Henriquez. We will continue to monitor the patient and when there is enough fluid buildup to safely place Pleurx catheter we will schedule this procedure. The patient does not need to be kept inpatient from our standpoint and can be monitored outpatient. Thank you Dr. Otoole for this consult. We look forward to working with you in the care of your patient. Time with Patient: Greater than 30
--- NOTE | 2018-03-01 15:14 | P.HPIM ---
History of Present Illness H&P Date: 03/01/18 Chief Complaint: Shortness of breath 8-year-old male presented to the emergency room after he was seen outpatient by his oncologist, Dr. Henriquez, yesterday. 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 The patient was recently hospitalized last week after he presented with shortness of breath. He was evaluated by pulmonary and found to have a right pleural effusion. He underwent thoracentesis by Dr. Sterling, with removal of 2600 mL. Right pleural fluid is positive for malignant cells consistent with metastatic melanoma. The patient has a history of coronary artery disease, COPD, myocardial infarction, osteoarthritis, sleep apnea, and anxiety. The patient is a current cigarette smoker and reports smoking presently 2 packs per day. Chest x-ray completed in the emergency reveals increasing right pleural effusion. Cardiothoracic surgery and interventional radiology have been consulted for Pleurx catheter placement. Laboratory data: WBC 9.2. Hemoglobin 11.2. Platelet count 605. Sodium 133. Potassium 4.9. BUN 13. Creatinine 0.60. Magnesium 2.3. Troponin negative 1. The patient was seen and examined at the bedside. He reports he had an anxiety attack this morning and is requesting his ativan. He reports pain to his left hip which he is prescribed Schroeder and a Fentanyl patch. He reports shortness of breath at rest. Also reports productive cough with mostly clear sputum. He denies chest pain or pressure. Denies dizziness or lightheadedness. Denies nausea or vomiting. Review of Systems Those systems with pertinent positive or pertinent negative responses have been documented in the HPI Past Medical History Past Medical History: Coronary Artery Disease (CAD), Cancer, COPD, Myocardial Infarction (CT), Musculoskeletal Disorder, Osteoarthritis (OA), Sleep Apnea/CPAP /BIPAP Additional Past Medical History / Comment(s): Metastatic melanoma of the pelvis. ANNETTE Last Myocardial Infarction Date:: 2013 History of Any Multi-Drug Resistant Organisms: None Reported Past Surgical History: Heart Catheterization With Stent Additional Past Surgical History / Comment(s): melanoma excision from back, pelvic biopsy. b/l cataracts Past Anesthesia/Blood Transfusion Reactions: No Reported Reaction Date of Last Stent Placement:: 2003 Past Psychological History: Anxiety Smoking Status: Current every day smoker Past Alcohol Use History: None Reported Additional Past Alcohol Use History / Comment(s): Pt started smoking at age 13 and is a 2 1/2 ppd smoker. Past Drug Use History: None Reported - Past Family History Father Family Medical History: Cancer Additional Family Medical History / Comment(s): Father of lung cancer. He was a smoker. He had glaucoma and cataracts and macular degeneration. Mother Family Medical History: Cancer, COPD Additional Family Medical History / Comment(s): Mother had breast cancer. She was an alcoholic. Medications and Allergies Home Medications Medication Instructions Recorded Confirmed Type Tafinlar 3 tab PO BID 10/07/15 02/28/18 History Trametinib Dimethyl Sulfoxide 2 mg PO DAILY 10/07/15 02/28/18 History [Mekinist] Aspirin EC [Ecotrin] 325 mg PO DAILY 11/09/15 02/28/18 History HYDROcodone/APAP 10-325MG [Schroeder 1 tab PO Q6H PRN 11/09/15 02/28/18 History 10-325] Sertraline [Zoloft] 100 mg PO HS 11/09/15 02/28/18 History traZODone HCL [Desyrel] 100 mg PO HS tab 11/12/15 02/28/18 Rx Albuterol Inhaler [Ventolin Hfa 2 puff INHALATION RT-Q6H PRN 02/22/18 02/28/18 History Inhaler] LORazepam [Ativan] 1 mg PO DAILY PRN 02/22/18 02/28/18 History Montelukast [Singulair] 10 mg PO DAILY 02/22/18 02/28/18 History Primidone [Mysoline] 50 mg PO BID 02/22/18 02/28/18 History Temazepam [Restoril] 30 mg PO HS 02/22/18 02/28/18 History diphenhydrAMINE HCL [Benadryl] 25 mg PO HS PRN 02/22/18 02/28/18 History fentaNYL 25MCG/HR PATCH [Duragesic 1 patch TRANSDERM Q72H 02/22/18 02/28/18 History 25MCG/HR] fentaNYL 100MCG/HR PATCH 1 patch TRANSDERM Q72H 02/23/18 02/28/18 History [Duragesic 100MCG/HR] Allergies Allergy/AdvReac Type Severity Reaction Status Date / Time oxycodone HCl AdvReac Confusion Verified 02/28/18 18:41 [From OxyContin] Morphine Family AdvReac Family Uncoded 02/28/18 17:17 history of altered mental status Physical Exam Vitals: Vital Signs Temp Pulse Pulse Resp BP BP Pulse Ox 03/01/18 07:29 88 03/01/18 07:19 84 94 L 03/01/18 05:00 98.3 F 103 H 16 113/56 98 02/28/18 23:00 98.0 F 95 20 139/71 94 L 02/28/18 21:30 107 H 22 135/62 96 02/28/18 20:26 98 22 145/68 95 02/28/18 19:17 92 20 139/63 97 02/28/18 18:43 85 02/28/18 18:39 18 02/28/18 17:13 98.3 F 94 20 107/65 92 L Intake and Output 02/28/18 03/01/18 03/01/18 22:59 06:59 14:59 Other: Voiding Method Toilet # Voids 2 Weight 102 kg GENERAL: This is a 62-year-old male in no apparent distress at the time of examination. Pleasant and cooperative. HEENT: Head is atraumatic, normocephalic. Pupils are equal, round, and reactive to light. Sclerae anicteric. Conjunctivae are clear. Mucus membranes of the mouth are moist. Neck is supple. RESPIRATORY: Essentially clear to auscultation, diminished in right lower lobe. No wheezes auscultated however patient reports he was wheezing earlier and just completed breathing treatment. No use of accessory muscles. Patient maintaining oxygen saturation greater than 92%. No chest wall tenderness is noted on palpation or with deep breathing. CARDIOVASCULAR: Regular rate and rhythm. S1 and S2 noted. No systolic or diastolic murmur auscultated. No JVD noted. No S3 or S4 noted. GASTROINTESTINAL: No distention noted. Abdomen soft and round. Normal active bowel sounds auscultated x 4 quadrants. No pain or tenderness noted upon palpation. INTEGUMENTARY: No cyanosis. No jaundice. No rashes noted. No cellulitis noted. EXTREMITIES: 2+ peripheral pulses. No evidence of peripheral edema. No calf tenderness noted. NEUROLOGIC: Cranial nerves II-XII intact. PSYCHIATRIC: Awake, alert, and oriented X 3. Appropriate affect. Intact judgement and insight. Results CBC & Chem 7: 02/28/18 18:28 02/28/18 18:28 Labs: Abnormal Lab Results - Last 24 Hours (Table) 02/28/18 02/28/18 Range/Units 18:28 18:28 Hgb 11.2 L (13.0-17.5) gm/dL Hct 35.9 L (39.0-53.0) % Plt Count 605 H (150-450) k/uL Neutrophils # 7.9 H (1.3-7.7) k/uL Lymphocytes # 0.6 L (1.0-4.8) k/uL Sodium 133 L (137-145) mmol/L Chloride 94 L (98-107) mmol/L Carbon Dioxide 32 H (22-30) mmol/L Creatinine 0.60 L (0.66-1.25) mg/dL Total Protein 5.7 L (6.3-8.2) g/dL Albumin 2.9 L (3.5-5.0) g/dL Thrombosis Risk Factor Assmnt - Choose All That Apply Any of the Below Risk Factors Present?: Yes Each Factor Represents 1 point: Abnormal pulmonary function (COPD), Age 41-60 years, Serious lung disease incl. pneumonia (< 1month) Other Risk Factors: Yes Each Risk Factor Represents 2 Points: Malignancy Other congenital or acquired thrombophilia - If yes, enter type in comment: No Thrombosis Risk Factor Assessment Total Risk Factor Score: 5 Thrombosis Risk Factor Assessment Level: High Risk Assessment and Plan Plan: ASSESSMENT: Metastatic melanoma, originally involving his back, treated with surgical resection, mets involving left hip and right axillary nodes Recurrent right pleural effusion, cytology positive for malignant cells consistent with metastatic melanoma, s/p thoracentesis on 02/24/2018 Chronic obstructive pulmonary disease Obstructive sleep apnea, not maintained on CPAP Coronary artery disease with previous stent placement in 2003 Osteoarthritis Nicotine dependence, patient is a current cigarette smoker Generalized anxiety disorder PLAN: Cardiothoracic surgery on consult. Appreciate recommendations and input Patient to undergo Pleurx catheter insertion in the near future Nebulizer treatments Nicotine patch Home meds as appropriate Monitor labs GI prophylaxis: Protonix 40 mg PO Daily DVT prophylaxis: SCDs to bilateral lower extremities Monitor vital signs and address as appropriate Discharge planning: Patient to return home when stable Further recommendations pending patient's course Nurse practitioner note has been reviewed by physician. Signing provider agrees with the documented findings, assessment, and plan of care.
--- NOTE | 2018-03-01 15:22 | P.DS ---
Providers Date of admission: 02/28/18 21:14 Expected date of discharge: 03/01/18 Attending physician: Suhas Sigala Consults: 02/28/18 21:01 Consult Physician Routine Consulting Provider: Natalio Henriquez Consult Reason/Comments: Melanoma, pleural effusion Do you want consulting provider notified?: Already Contacted Consult Physician Routine Consulting Provider: Tan Lord Consult Reason/Comments: Pleuex catheter Do you want consulting provider notified?: Yes, Notify in am Consult Physician Routine Consulting Provider: Donald Melo Consult Reason/Comments: Ultrasound guided thoracentesis Do you want consulting provider notified?: Yes, Notify in am Primary care physician: [facility] Course: 62-year-old male presented to the emergency room after he was seen outpatient by his oncologist, Dr. Henriquez, yesterday. 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 The patient was recently hospitalized last week after he presented with shortness of breath. He was evaluated by pulmonary and found to have a right pleural effusion. He underwent thoracentesis by Dr. Sterling, with removal of 2600 mL. Right pleural fluid is positive for malignant cells consistent with metastatic melanoma. The patient has a history of coronary artery disease, COPD, myocardial infarction, osteoarthritis, sleep apnea, and anxiety. The patient is a current cigarette smoker and reports smoking presently 2 packs per day. Chest x-ray completed in the emergency reveals increasing right pleural effusion. Cardiothoracic surgery and interventional radiology have been consulted for Pleurx catheter placement. Laboratory data: WBC 9.2. Hemoglobin 11.2. Platelet count 605. Sodium 133. Potassium 4.9. BUN 13. Creatinine 0.60. Magnesium 2.3. Troponin negative 1. The patient was evaluated by cardiothoracic surgery who does not feel there is enough pleural fluid to safely drain at this time. The patient was cleared for discharge by cardiothoracic surgery. Spoke with Zully Cam NP with cardio thoracic surgery. Patient is to be discharged home today and will present back to the hospital on Sunday for a chest x-ray to reevaluate right plural effusion. Zully states they will review his chest x-ray on Sunday. The patient has also to see his primary care physician on Sunday or Sunday at the latest. The patient was discharged home in stable condition. DISCHARGE DIAGNOSIS: Metastatic melanoma, originally involving his back, treated with surgical resection, mets involving left hip and right axillary nodes Recurrent right pleural effusion, cytology positive for malignant cells consistent with metastatic melanoma, s/p thoracentesis on 02/24/2018 Chronic obstructive pulmonary disease Obstructive sleep apnea, not maintained on CPAP Coronary artery disease with previous stent placement in 2003 Osteoarthritis Nicotine dependence, patient is a current cigarette smoker Generalized anxiety disorder Nurse practitioner note has been reviewed by physician. Signing provider agrees with the documented findings, assessment, and plan of care. Patient Condition at Discharge: Stable Plan - Discharge Summary Discharge Rx Participant: Yes New Discharge Prescriptions: Continue Trametinib Dimethyl Sulfoxide [Mekinist] 2 mg PO DAILY Tafinlar 3 tab PO BID HYDROcodone/APAP 10-325MG [[place] 10-325] 1 tab PO Q6H PRN PRN Reason: Pain Aspirin EC [Ecotrin] 325 mg PO DAILY Sertraline [Zoloft] 100 mg PO HS traZODone HCL [Desyrel] 100 mg PO HS tab Albuterol Inhaler [Ventolin Hfa Inhaler] 2 puff INHALATION RT-Q6H PRN PRN Reason: Shortness Of Breath Temazepam [Restoril] 30 mg PO HS Primidone [Mysoline] 50 mg PO BID Montelukast [Singulair] 10 mg PO DAILY LORazepam [Ativan] 1 mg PO DAILY PRN PRN Reason: Anxiety fentaNYL 25MCG/HR PATCH [Duragesic 25MCG/HR] 1 patch TRANSDERM Q72H diphenhydrAMINE HCL [Benadryl] 25 mg PO HS PRN PRN Reason: Allergic Reaction fentaNYL 100MCG/HR PATCH [Duragesic 100MCG/HR] 1 patch TRANSDERM Q72H Discharge Medication List Tafinlar 3 tab PO BID 10/07/15 [History] Trametinib Dimethyl Sulfoxide [Mekinist] 2 mg PO DAILY 10/07/15 [History] Aspirin EC [Ecotrin] 325 mg PO DAILY 11/09/15 [History] HYDROcodone/APAP 10-325MG [[place] 10-325] 1 tab PO Q6H PRN 11/09/15 [History] Sertraline [Zoloft] 100 mg PO HS 11/09/15 [History] traZODone HCL [Desyrel] 100 mg PO HS tab 11/12/15 [Rx] Albuterol Inhaler [Ventolin Hfa Inhaler] 2 puff INHALATION RT-Q6H PRN 02/22/18 [ History] LORazepam [Ativan] 1 mg PO DAILY PRN 02/22/18 [History] Montelukast [Singulair] 10 mg PO DAILY 02/22/18 [History] Primidone [Mysoline] 50 mg PO BID 02/22/18 [History] Temazepam [Restoril] 30 mg PO HS 02/22/18 [History] diphenhydrAMINE HCL [Benadryl] 25 mg PO HS PRN 02/22/18 [History] fentaNYL 25MCG/HR PATCH [Duragesic 25MCG/HR] 1 patch TRANSDERM Q72H 02/22/18 [ History] fentaNYL 100MCG/HR PATCH [Duragesic 100MCG/HR] 1 patch TRANSDERM Q72H 02/23/18 [ History] Follow up Appointment(s)/Referral(s): Phong Smith MD [STAFF PHYSICIAN] - 03/04/18 Iván Hines Jr, DO [Primary Care Provider] - 03/04/18 Natalio Henriquez MD [STAFF PHYSICIAN] - 1 Week Ambulatory/Diagnostic Orders: XR chest 2V [RAD.AMB] Time Frame: 03/04/18, Location: None Selected Discharge Disposition: HOME SELF-CARE
[2018-03-01 15:55] VITALS: PULSE 82
[2018-03-01] MEDS ORDERED: BUDESONIDE 1 MG/2 ML NEBU INHALATION SCH (20:00)
[2018-03-01] MEDS ORDERED: TEMAZEPAM 30 MG CAP PO SCH (21:00)
[2018-03-01] MEDS ORDERED: traZODone HCL 100 MG TAB PO SCH (21:00)
== END 2018-03-01 16:10 | disposition home or self-care (01) | DRG 596 ==
LOC: EC 17:02 → 5MS5E 21:14
PROVIDERS: ADMIT Family Medicine; ATTEND Family Medicine
DX: C43.59 Malignant melanoma of other part of trunk (principal); C79.51 Secondary malignant neoplasm of bone; C77.3 Secondary and unspecified malignant neoplasm of axilla and upper limb lymph nodes; J91.0 Malignant pleural effusion; F17.210 Nicotine dependence, cigarettes, uncomplicated; F41.1 Generalized anxiety disorder; G47.33 Obstructive sleep apnea (adult) (pediatric); I25.10 Atherosclerotic heart disease of native coronary artery without angina pectoris; I25.2 Old myocardial infarction; J44.9 Chronic obstructive pulmonary disease, unspecified; M19.90 Unspecified osteoarthritis, unspecified site; Z79.82 Long term (current) use of aspirin; Z79.899 Other long term (current) drug therapy; Z80.1 Family history of malignant neoplasm of trachea, bronchus and lung; Z80.3 Family history of malignant neoplasm of breast; Z82.5 Family history of asthma and other chronic lower respiratory diseases; Z95.5 Presence of coronary angioplasty implant and graft; Z79.891 Long term (current) use of opiate analgesic; Z79.51 Long term (current) use of inhaled steroids; Z98.42 Cataract extraction status, left eye; Z98.41 Cataract extraction status, right eye; Z81.1 Family history of alcohol abuse and dependence; Z88.5 Allergy status to narcotic agent
CPT/HCPCS: 36415; 71046; 80053; 82550; 82553; 83735; 84484; 85025; 85610; 85730; 93005; 94640; 94760; 99285

== ENCOUNTER → 2018-03-05 | Outpatient (CLI) | payer OTHER ==
--- NOTE | 2018-03-06 09:09 | ECHOF ---
Referral Reason:I25.2 Post myocardial infarction, R06.02 Shortness MEASUREMENTS -------- HEIGHT: 182.9 cm WEIGHT: 108.9 kg BP: 143/76 RVIDd: 3.4 cm (< 3.3) IVSd: 1.3 cm (0.6 - 1.1) LVIDd: 3.2 cm (3.9 - 5.3) LVPWd: 1.3 cm (0.6 - 1.1) IVSs: 1.9 cm LVIDs: 2.3 cm LVPWs: 1.9 cm LA Diam: 4.1 cm (2.7 - 3.8) LAESV Index (A-L): 12.53 ml/m Ao Diam: 3.5 cm (2.0 - 3.7) AV Cusp: 1.8 cm (1.5 - 2.6) MV EXCURSION: 14.425 mm (> 18.000) MV EF SLOPE: 52 mm/s (70 - 150) EPSS: 0.3 cm MV E Wayne: 0.96 m/s MV DecT: 139 ms MV A Wayne: 0.85 m/s MV E/A Ratio: 1.13 AV maxP.88 mmHg AV meanP.69 mmHg RAP: 5.00 mmHg RVSP: 36.89 mmHg FINDINGS -------- Sinus rhythm. This was a technically adequate study. The left ventricular size is normal. There is mild concentric left ventricular hypertrophy. Overa ll left ventricular systolic function is normal with, an EF between 60 - 65 %. The right ventricle is mildly enlarged. Normal LA size by volume 22+/-6 ml/m2. The right atrium is normal in size. There is mild aortic valve sclerosis. The mitral valve leaflets are mildly thickened. Mild mitral annular calcification present. Mild tricuspid regurgitation present. There is mild pulmonary hypertension. The right ventricular systolic pressure, as measured by Doppler, is 36.89mmHg. The pulmonic valve was not well visualized. The aortic root size is normal. Normal inferior vena cava with normal inspiratory collapse consistent with estimated right atrial pre ssure of 5 mmHg. There is no pericardial effusion. CONCLUSIONS -------- 1. Sinus rhythm. 2. This was a technically adequate study. 3. The left ventricular size is normal. 4. There is mild concentric left ventricular hypertrophy. 5. Overall left ventricular systolic function is normal with, an EF between 60 - 65 %. 6. The right ventricle is mildly enlarged. 7. Normal LA size by volume 22+/-6 ml/m2. 8. The right atrium is normal in size. 9. There is mild aortic valve sclerosis. 10. The mitral valve leaflets are mildly thickened. 11. Mild mitral annular calcification present. 12. Mild tricuspid regurgitation present. 13. There is mild pulmonary hypertension. 14. The right ventricular systolic pressure, as measured by Doppler, is 36.89mmHg. 15. The pulmonic valve was not well visualized. 16. The aortic root size is normal. 17. Normal inferior vena cava with normal inspiratory collapse consistent with estimated right atrial pressure of 5 mmHg. 18. There is no pericardial effusion. SECURITY PATROL OFFICER: Liana Busch RDCS
== END | disposition home or self-care (01) ==
LOC: RADECHMAIN 15:15
PROVIDERS: ATTEND Internal Medicine Hematology & Oncology
DX: I27.20 Pulmonary hypertension, unspecified (principal); I08.3 Combined rheumatic disorders of mitral, aortic and tricuspid valves; Z88.5 Allergy status to narcotic agent; Z88.6 Allergy status to analgesic agent
CPT/HCPCS: 93306

== ENCOUNTER → 2018-03-06 | Outpatient (CLI) | payer OTHER ==
--- NOTE | 2018-03-06 22:41 | CT ---
EXAMINATION TYPE: CT chest w con DATE OF EXAM: 03/06/2018 COMPARISON: 02/22/2020 HISTORY: 62-year-old male SOB, observation for mets, hx of melanoma TECHNIQUE: Contiguous axial scanning of the chest after the administration of 100 mL of Isovue 300. Coronal/sagittal reconstructions performed. CT DLP: 859mGycm. Automatic exposure control utilized for a dose reduction. FINDINGS: The heart is normal size without pericardial effusion. Coronary vessel calcifications are present. Aorta normal caliber with conventional arch vessel branching anatomy. Progression in the patient's mediastinal lymphadenopathy. For example: -Right paratracheal measuring 1.1 cm versus 9 mm, previously -Prevascular space measuring 1 cm versus 9 mm, previously -Right tracheobronchial angle measuring 1.7 cm versus 1.3 cm and 9 mm, previously -AP window measuring 1.6 cm versus 1.5 cm, previously, -Left paraesophageal measuring 1.4 cm, -and at the diaphragmatic hiatus measuring 1.2 cm. Soft tissue at the bilateral keli has also increased measuring up to 1.8 cm on the right versus 1.5 c m, previously. Refer to axial images 29 and 36 through 38 for the right hilum and axial image 33 for the left hilum. Calcified subcarinal lymph nodes and calcified granulomas in the right lower lobe. Mild to moderate centrilobular emphysema. Tiny branching nodularity in the medial left upper lobe is slightly more pronounced as compared to 02/21/2018. A 9 mm inferior lingular pulmonary nodule is larger as compared to 7 mm, previously. There is continued right middle and right lower lobar collapse. No segmental collapse now involving t he right upper lobe. Increasing large right pleural effusion with adjacent atelectasis. Visualized upper abdomen shows calcified granulomas in the spleen. Bones: No osseous destructive process. IMPRESSION: 1. Increased large right pleural effusion. Continued right middle and right lower lobar collapse now with new segmental atelectasis of the right upper lobe. 2. Progression in the patient's mediastinal lymphadenopathy. Soft tissue at the bilateral keli also s hows interval increase (as compared to 02/21/2018, noted to be new from 01/02/2018). 3. A 9 mm inferior lingular pulmonary nodule is larger as compared to 7 mm, previously. Tiny branchin g nodularity in the medial left upper lobe is also slightly more pronounced. 4. Progression in metastatic disease is considered. 5. Background of COPD and prior granulomatous disease.
--- NOTE | 2018-03-07 08:19 | MR ---
EXAMINATION TYPE: MR brain wo/w con DATE OF EXAM: 03/06/2018 COMPARISON: 12/19/2016 HISTORY: AMS, confusion, melanoma TECHNIQUE: Multiplanar, multisequence images of the brain and brainstem is performed without and with IV contras t, utilizing 10 mL intravenous Gadavist . FINDINGS: Diffusion weighted images demonstrate no evidence of a recent infarct or other diffusion ab normality. The ventricular system and cisternal spaces are normal in size and appearance. The brain volume is age appropriate. Midline structures demonstrate normal morphology. The craniocervical junction appears within normal limits. Post contrast images demonstrate no abnormal enhancement. The dural venous sinuses appear pa tent. Changes of chronic sinusitis noted. White matter: There are approximately 20-25 areas of abnormal signal in the white matter scattered bilaterally. No lesions perpendicular to the ventricular system No callosal lesions. There are 3 areas of abnormal enhancement within the supratentorial region. Largest is seen measuring 2 x 2.3 cm adjacent to the right lateral ventricle with compression of the ventricle. Second is seen in the region of the basal ganglia and external capsule measuring approximately 1.6 x 1.2 cm. There is a third lesion within the left parietal lobe measuring 1.2 x 1.2 cm. The largest lesion does have a somewhat heterogeneous pattern which may represent a component of hemorrhage. Hemorrhagic metastase s in the differential diagnosis. CT scan recommended. Intraparenchymal hemorrhage felt less likely gi phi the patient's history. IMPRESSION: 1. There are 3 intracranial lesions with the largest measuring 2 x 2 0.3 cm adjacent to the body of t he right lateral ventricle. There is mass effect and compression. Findings are most likely in the bas is of intracranial metastases. As noted above there is a somewhat heterogeneous signal pattern to the largest lesion suggestive of hemorrhage. Hemorrhagic metastases favored over intracranial spontaneou s hemorrhage but correlation clinically suggested. Report called to physician's office and report fax ed to the office. 2. Stable nonspecific white matter changes most typical remote microvascular ischemia.. A [place] critical message alert has been initiated for Natalio Henriquez MD via the [employer] Critical Results System on 03/07/2018 8:16 AM. This message alert has been sent to Natalio Henriquez MD v ia the preferences provided by the clinician for the receipt of Radiology Critical Findings. Message ID [id number].
== END | disposition home or self-care (01) ==
LOC: RADMRIMAIN 17:46
PROVIDERS: ATTEND Internal Medicine Hematology & Oncology
DX: C43.59 Malignant melanoma of other part of trunk (principal); R90.82 White matter disease, unspecified; J44.9 Chronic obstructive pulmonary disease, unspecified; J90 Pleural effusion, not elsewhere classified; J98.11 Atelectasis; R91.1 Solitary pulmonary nodule; R59.0 Localized enlarged lymph nodes
CPT/HCPCS: 71260; 70553; A9581; Q9967

== ENCOUNTER 2018-03-08 07:56 | Day surgery (SDC) | payer OTHER ==
[2018-03-06 08:40] VITALS: BMI 32.9
[~2018-03-08 07:56] MED LIST: LACTATED RINGERS 1,000 ML IV SCH; MIDAZOLAM 2 MG/2 ML VIAL IV PRN; ONDANSETRON 4 MG/2 ML VIAL IVP ONE; ceFAZolin IN SWFI 2 GM/20 ML SYRINGE IVP ONE; fentaNYL (PF) 50 MCG/ML 2 ML AMP IV PRN
[2018-03-08] MEDS ORDERED: LIDOCAINE 1% 20 ML VIAL (10MG/ML) FOR IV START INTRADERMA ONE (08:47)
[2018-03-08] MEDS ORDERED: fentaNYL (PF) 50 MCG/ML 2 ML AMP ONE (09:27)
[2018-03-08] MEDS ORDERED: PROPOFOL 10 MG/ML 20 ML VIAL IV ONE (09:27)
[2018-03-08] MEDS ORDERED: MIDAZOLAM 2 MG/2 ML VIAL ONE (09:27)
[2018-03-08 10:15] VITALS: TEMP 97
--- NOTE | 2018-03-08 10:23 | PCN ---
PROCEDURE NOTE DATED OF SERVICE: 03/08/2018 SURGEON: Phong Smith MD PREOPERATIVE DIAGNOSIS: Recurrent right-sided malignant pleural effusion. POSTOPERATIVE DIAGNOSIS: Recurrent right-sided malignant pleural effusion. PROCEDURE: Insertion of a right PleurX catheter. INDICATION FOR SURGERY: Patient has recurrent right-sided pleural effusion, that is malignant. DESCRIPTION OF THE PROCEDURE: Under IV sedation, a total of 10 mL of lidocaine 1% was used to secure local anesthesia. The chest and abdomen were both prepped and draped using ChloraPrep. The patient received 2 g of cefazolin intravenously. Access to the right pleural fluid was obtained with a small needle initially, then subsequently an Angiocath was inserted and then a wire into the pleural cavity. The tunnel between that insertion site and the right upper quadrant was anesthetized with lidocaine 1%. A small 1 cm counter incision was made at the level of the right upper quadrant and the catheter tunneled towards the chest insertion site. A dilator, then a peel-away sheath were inserted over wire, then the dilator and the wires were removed and the catheter pushed into the peel-away sheath that was eventually removed. The system was hooked to a vacuum bottle and a total of 2 L of bloody effusion was drained. The chest access incision was closed with Vicryl 4-0 and glue for the skin and the tube was affixed to the skin using silk 2-0. Patient tolerated the procedure well and was transferred to recovery room in stable condition. MMODL / IJN: [id number] /
[2018-03-08] MEDS ORDERED: HYDROcodone/APAP 10-325MG 1 EACH TAB PO ONE (11:24)
[2018-03-08] MEDS ORDERED: HYDROcodone/APAP 10-325MG 1 EACH TAB ONE (11:26)
[2018-03-08 12:07] VITALS: BP 108/69; PULSE 58; RESP 22
== END 2018-03-08 12:35 | disposition home health service (06) ==
LOC: OR 07:56
PROVIDERS: ATTEND Surgery
DX: J91.0 Malignant pleural effusion (principal); Z85.118 Personal history of other malignant neoplasm of bronchus and lung; G47.33 Obstructive sleep apnea (adult) (pediatric); Z99.89 Dependence on other enabling machines and devices; I25.10 Atherosclerotic heart disease of native coronary artery without angina pectoris; I25.2 Old myocardial infarction; J44.9 Chronic obstructive pulmonary disease, unspecified; F17.210 Nicotine dependence, cigarettes, uncomplicated; M19.90 Unspecified osteoarthritis, unspecified site; Z95.5 Presence of coronary angioplasty implant and graft; F41.9 Anxiety disorder, unspecified; Z79.899 Other long term (current) drug therapy; Z79.891 Long term (current) use of opiate analgesic; Z88.5 Allergy status to narcotic agent
CPT/HCPCS: 32550; J2250; J2405; J3010; J2704

== ENCOUNTER 2018-03-09 15:06 | Inpatient (IN) | payer OTHER ==
[2018-03-09 15:48] LABS: Basophils % (A) 0 %; Eosinophils # (A) 0.1 k/uL (0-0.7); Eosinophils % (A) 1 %; HCT 34.5 % (39.0-53.0); HGB 10.8 gm/dL (13.0-17.5); Hypochromasia Moderate; Lymphocytes # (A) 0.6 k/uL (1.0-4.8); Lymphocytes % (A) 5 %; MCH 25.8 pg (25.0-35.0); MCHC 31.2 g/dL (31.0-37.0); MCV 82.5 fL (80.0-100.0); Mean Platelet Volume 6.2; Monocytes # (A) 0.4 k/uL (0-1.0); Monocytes % (A) 3 %; Neutrophils # (A) 12.9 k/uL (1.3-7.7); Neutrophils % (A) 91 %; Platelet Count 598 k/uL (150-450); RBC 4.18 m/uL (4.30-5.90); RDW 14.7 % (11.5-15.5); WBC 14.1 k/uL (3.8-10.6)
--- NOTE | 2018-03-09 15:53 | ED ---
General Adult HPI - General Chief complaint: Shortness of Breath Stated complaint: LEO Time Seen by Provider: 03/09/18 15:08 Source: patient, RN notes reviewed, old records reviewed Mode of arrival: EMS Limitations: no limitations - History of Present Illness Initial comments: 62-year-old male presents for evaluation of dyspnea, and chest pain. Patient had right-sided Pleurx catheter placed yesterday. According to the patient via 2 L strained prior to discharge. Today home care nurse came for drainage and drained approximately one half liters of bloody fluid from his right chest. During this patient developed chest pain and dyspnea. He also felt quite lightheaded and had an episode of diarrhea. Patient is feeling better at the time of my evaluation. He did receive a breathing treatment by EMS prior to arrival. He has a history of COPD and takes treatments on a regular basis. He does have history of metastatic melanoma including lung metastases as well as brain metastases. He is currently following with oncology. - Related Data Home Medications Medication Instructions Recorded Confirmed Tafinlar 3 tab PO BID 10/07/15 03/09/18 Trametinib Dimethyl Sulfoxide 2 mg PO DAILY 10/07/15 03/09/18 [Mekinist] Aspirin EC [Ecotrin] 325 mg PO DAILY 11/09/15 03/09/18 HYDROcodone/APAP 10-325MG [[place] 1 tab PO Q8H 11/09/15 03/09/18 10-325] Sertraline [Zoloft] 100 mg PO HS 11/09/15 03/09/18 Albuterol Inhaler [Ventolin Hfa 2 puff INHALATION RT-QID PRN 02/22/18 03/09/18 Inhaler] LORazepam [Ativan] 1 mg PO DAILY PRN 02/22/18 03/09/18 Montelukast [Singulair] 10 mg PO DAILY PRN 02/22/18 03/09/18 Primidone [Mysoline] 50 mg PO BID 02/22/18 03/09/18 Temazepam [Restoril] 30 mg PO HS 02/22/18 03/09/18 diphenhydrAMINE HCL [Benadryl] 25 mg PO HS PRN 02/22/18 03/09/18 fentaNYL 25MCG/HR PATCH [Duragesic 1 patch TRANSDERM Q72H PRN 02/22/18 03/09/18 25MCG/HR] fentaNYL 100MCG/HR PATCH 1 patch TRANSDERM Q72H 02/23/18 03/09/18 [Duragesic 100MCG/HR] Dexamethasone 4 mg PO Q6H 03/09/18 03/09/18 Previous Rx's Medication Instructions Recorded traZODone HCL [Desyrel] 100 mg PO HS tab 11/12/15 Allergies Allergy/AdvReac Type Severity Reaction Status Date / Time amoxicillin Allergy Rash/Hives Verified 03/09/18 15:33 morphine AdvReac Hallucinati Verified 03/09/18 15:33 ons oxycodone HCl AdvReac Confusion Verified 03/09/18 15:33 [From OxyContin] Morphine Family AdvReac Family Uncoded 03/09/18 15:32 history of altered mental status Review of Systems ROS Statement: Those systems with pertinent positive or pertinent negative responses have been documented in the HPI. ROS Other: All systems not noted in ROS Statement are negative. Past Medical History Past Medical History: Cancer, Myocardial Infarction ([place]) Additional Past Medical History / Comment(s): Metastatic melanoma of the pelvis. ANNETTE Last Myocardial Infarction Date:: 2013 History of Any Multi-Drug Resistant Organisms: None Reported Past Surgical History: Heart Catheterization With Stent Additional Past Surgical History / Comment(s): melanoma excision from back, pelvic biopsy. b/l cataracts Past Anesthesia/Blood Transfusion Reactions: No Reported Reaction Date of Last Stent Placement:: 2003 Past Psychological History: Anxiety Smoking Status: Current every day smoker Past Alcohol Use History: None Reported Past Drug Use History: None Reported - Past Family History Father Family Medical History: Cancer Additional Family Medical History / Comment(s): Father of lung cancer. He was a smoker. He had glaucoma and cataracts and macular degeneration. Mother Family Medical History: Cancer, COPD Additional Family Medical History / Comment(s): Mother had breast cancer. She was an alcoholic. General Exam Limitations: no limitations General appearance: alert, in no apparent distress Head exam: Present: atraumatic, normocephalic Eye exam: Present: normal appearance, PERRL ENT exam: Present: normal exam Neck exam: Present: normal inspection. Absent: tenderness, meningismus Respiratory exam: Present: wheezes, decreased breath sounds. Absent: respiratory distress Cardiovascular Exam: Present: regular rate, normal rhythm GI/Abdominal exam: Present: soft, distended. Absent: tenderness, guarding, rebound Extremities exam: Present: normal inspection, full ROM Neurological exam: Present: alert, oriented X3, CN II-XII intact. Absent: motor sensory deficit Psychiatric exam: Present: normal affect, normal mood Skin exam: Present: warm, dry, intact. Absent: cyanosis, diaphoretic Course Vital Signs 03/09/18 03/09/18 03/09/18 15:21 16:53 16:56 Temperature 99 F 98.9 F Pulse Rate 88 80 83 Respiratory 24 16 24 Rate Blood Pressure 108/59 110/60 93/47 O2 Sat by Pulse 98 97 94 L Oximetry EKG Findings - EKG Comments: EKG Findings:: EKG: Normal sinus rhythm, poor baseline secondary to tremor, rate of 94, MO interval 112, QRS duration 86, QTC 445 Medical Decision Making - Medical Decision Making 62-year-old male presenting with right-sided chest pain and bloody drainage from Catheter. Patient's vital signs are stable and initial evaluation. He does have breath sounds bilaterally, chest x-rays obtained, shows decrease in right-sided pleural effusion, no pneumothorax. Laboratory studies reveal hemoglobin of 10.8 which is slightly down trending from recent 11.2. White blood cell count elevated at 14.1 however the patient is currently on steroids. Patient reevaluated, still has persistent right-sided chest pain. He will be admitted for pain control, further evaluation treatment as well as serial hemoglobin testing given the bloody fluid drained from Pleurx catheter. - Lab Data Result diagrams: 03/09/18 15:39 03/09/18 15:39 Lab Results 03/09/18 03/09/18 03/09/18 Range/Units 15:39 15:39 15:39 WBC 14.1 H (3.8-10.6) k/uL RBC 4.18 L (4.30-5.90) m/uL Hgb 10.8 L (13.0-17.5) gm/dL Hct 34.5 L (39.0-53.0) % MCV 82.5 (80.0-100.0) fL MCH 25.8 (25.0-35.0) pg MCHC 31.2 (31.0-37.0) g/dL RDW 14.7 (11.5-15.5) % Plt Count 598 H (150-450) k/uL Neutrophils % 91 % Lymphocytes % 5 % Monocytes % 3 % Eosinophils % 1 % Basophils % 0 % Neutrophils # 12.9 H (1.3-7.7) k/uL Lymphocytes # 0.6 L (1.0-4.8) k/uL Monocytes # 0.4 (0-1.0) k/uL Eosinophils # 0.1 (0-0.7) k/uL Basophils # 0.0 (0-0.2) k/uL Hypochromasia Moderate PT (9.0-12.0) sec INR (<1.2) APTT (22.0-30.0) sec Sodium (137-145) mmol/L Potassium (3.5-5.1) mmol/L Chloride (98-107) mmol/L Carbon Dioxide (22-30) mmol/L Anion Gap mmol/L BUN (9-20) mg/dL Creatinine (0.66-1.25) mg/dL Est GFR (CKD-EPI)AfAm (>60 ml/min/1.73 sqM) Est GFR (CKD-EPI)NonAf (>60 ml/min/1.73 sqM) Glucose (74-99) mg/dL Calcium (8.4-10.2) mg/dL Magnesium (1.6-2.3) mg/dL Total Bilirubin (0.2-1.3) mg/dL AST (17-59) U/L ALT (21-72) U/L Alkaline Phosphatase (38-126) U/L Total Creatine Kinase 49 L (55-170) U/L CK-MB (CK-2) 1.1 (0.0-2.4) ng/mL CK-MB (CK-2) Rel Index 2.2 Troponin I <0.012 (0.000-0.034) ng/mL Total Protein (6.3-8.2) g/dL Albumin (3.5-5.0) g/dL Blood Type B Positive Blood Type Recheck No Antibody Screen NEGATIVE Spec Expiration Date 03/12/2018 - 233803/09/18 03/09/18 Range/Units 15:39 15:39 WBC (3.8-10.6) k/uL RBC (4.30-5.90) m/uL Hgb (13.0-17.5) gm/dL Hct (39.0-53.0) % MCV (80.0-100.0) fL MCH (25.0-35.0) pg MCHC (31.0-37.0) g/dL RDW (11.5-15.5) % Plt Count (150-450) k/uL Neutrophils % % Lymphocytes % % Monocytes % % Eosinophils % % Basophils % % Neutrophils # (1.3-7.7) k/uL Lymphocytes # (1.0-4.8) k/uL Monocytes # (0-1.0) k/uL Eosinophils # (0-0.7) k/uL Basophils # (0-0.2) k/uL Hypochromasia PT 10.9 (9.0-12.0) sec INR 1.1 (<1.2) APTT 23.7 (22.0-30.0) sec Sodium 133 L (137-145) mmol/L Potassium 4.7 (3.5-5.1) mmol/L Chloride 95 L (98-107) mmol/L Carbon Dioxide 30 (22-30) mmol/L Anion Gap 8 mmol/L BUN 13 (9-20) mg/dL Creatinine 0.50 L (0.66-1.25) mg/dL Est GFR (CKD-EPI)AfAm >90 (>60 ml/min/1.73 sqM) Est GFR (CKD-EPI)NonAf >90 (>60 ml/min/1.73 sqM) Glucose 128 H (74-99) mg/dL Calcium 8.5 (8.4-10.2) mg/dL Magnesium 2.3 (1.6-2.3) mg/dL Total Bilirubin 0.2 (0.2-1.3) mg/dL AST 40 (17-59) U/L ALT 55 (21-72) U/L Alkaline Phosphatase 145 H (38-126) U/L Total Creatine Kinase (55-170) U/L CK-MB (CK-2) (0.0-2.4) ng/mL CK-MB (CK-2) Rel Index Troponin I (0.000-0.034) ng/mL Total Protein 5.3 L (6.3-8.2) g/dL Albumin 2.6 L (3.5-5.0) g/dL Blood Type Blood Type Recheck Antibody Screen Spec Expiration Date Disposition Clinical Impression: Melanoma, Metastatic melanoma, Pleural effusion, Intractable pain Disposition: ADMITTED IP TO THIS HOSP Condition: Stable Is patient prescribed a controlled substance at d/c from ED?: No Referrals: Suhas Sigala MD [Primary Care Provider] - 1-2 days Time of Disposition: 17:08
[2018-03-09 15:57] LABS: INR 1.1 (<1.2); Partial Thromboplastin Time 23.7 sec (22.0-30.0); Prothrombin Time 10.9 sec (9.0-12.0)
[2018-03-09 16:04] LABS: Creatine Kinase 49 U/L (55-170)
--- NOTE | 2018-03-09 16:09 | XR ---
EXAMINATION TYPE: XR chest 1V portable DATE OF EXAM: 03/09/2018 COMPARISON: 02/28/2018 INDICATION: Pain TECHNIQUE: Single frontal view of the chest is obtained. FINDINGS: The heart size is normal. The pulmonary vasculature is normal. There is some plate atelectasis in the right midlung. Mild infiltrate at the right base may be presen t. Previous right pleural effusion is resolved. No pneumothorax is evident. Right-sided chest tube is present. IMPRESSION: 1. Resolution previous right pleural effusion. 2. Mild atelectasis right lower lobe. 3. No pneumothorax. 4. Right-sided chest tube
[2018-03-09 16:17] LABS: Creatine Kinase MB 1.1 ng/mL (0.0-2.4); Troponin I <0.012 ng/mL (0.000-0.034)
[2018-03-09 16:21] LABS: ALT 55 U/L (21-72); AST 40 U/L (17-59); Albumin 2.6 g/dL (3.5-5.0); Alkaline Phosphatase 145 U/L (38-126); Anion Gap 8 mmol/L; Blood Urea Nitrogen 13 mg/dL (9-20); Calcium 8.5 mg/dL (8.4-10.2); Carbon Dioxide 30 mmol/L (22-30); Chloride 95 mmol/L (98-107); Glucose 128 mg/dL (74-99); Magnesium 2.3 mg/dL (1.6-2.3); Potassium 4.7 mmol/L (3.5-5.1); Sodium 133 mmol/L (137-145); Total Bilirubin 0.2 mg/dL (0.2-1.3); Total Protein 5.3 g/dL (6.3-8.2)
[2018-03-09] MEDS ORDERED: HYDROmorphone 1 MG/ML 1 ML SYRINGE IVP STA (16:32)
[2018-03-09] MEDS ORDERED: HYDROmorphone 1 MG/ML 1 ML SYRINGE IVP PRN (17:03)
[2018-03-09] MEDS ORDERED: NALOXONE 0.4 MG/ML 1 ML VIAL IV PRN (17:03)
[2018-03-09] MEDS ORDERED: ACETAMINOPHEN TAB 325 MG TAB PO PRN (17:03)
[2018-03-09] MEDS ORDERED: ONDANSETRON 4 MG/2 ML VIAL IVP PRN (17:03)
[2018-03-09 19:16] VITALS: BMI 32.9
[2018-03-09] MEDS ORDERED: ALBUTEROL NEBULIZED 2.5 MG/3 ML INHALATION PRN (20:15)
[2018-03-09] MEDS ORDERED: diphenhydrAMINE 25 MG CAP PO PRN (20:15)
[2018-03-09] MEDS: HYDROcodone/APAP 10-325MG 1 EACH TAB PO PRN (22:07)
[2018-03-09] MEDS: SERTRALINE 100 MG TAB PO SCH (22:08)
[2018-03-09] MEDS: LORazepam 1 MG TAB PO PRN (22:08)
[2018-03-09] MEDS: traZODone HCL 100 MG TAB PO SCH (22:08)
[2018-03-09] MEDS: NICOTINE 21MG/24HR PATCH TRANSDERM SCH (22:08)
[2018-03-09] MEDS: ASPIRIN 325 MG TAB PO SCH (22:09)
[2018-03-09] MEDS: SODIUM CHLORIDE 0.9% 1,000 ML IV SCH (22:09)
[2018-03-09] MEDS: PRIMIDONE 50 MG TAB PO SCH (22:09)
[2018-03-09] MEDS: DEXAMETHASONE 4 MG TAB PO SCH (22:09)
[2018-03-09] MEDS: TAFINLAR PO SCH (23:01)
[2018-03-09] MEDS: Trametinib Dimethyl Sulfoxide [Mekinist] PO SCH (23:01)
[2018-03-10] MEDS: HYDROmorphone 1 MG/ML 1 ML SYRINGE IVP PRN (02:54)
[2018-03-10] MEDS: LORazepam 1 MG TAB PO PRN ×2 (05:49→16:55)
[2018-03-10] MEDS: HYDROcodone/APAP 10-325MG 1 EACH TAB PO PRN (05:49)
[2018-03-10 07:23] LABS: Basophils % (A) 0 %; Eosinophils % (A) 0 %; HCT 31.8 % (39.0-53.0); HGB 9.8 gm/dL (13.0-17.5); Hypochromasia Moderate; Lymphocytes # (A) 0.8 k/uL (1.0-4.8); Lymphocytes % (A) 6 %; MCH 25.3 pg (25.0-35.0); MCHC 30.9 g/dL (31.0-37.0); MCV 81.9 fL (80.0-100.0); Mean Platelet Volume 6.1; Monocytes # (A) 0.5 k/uL (0-1.0); Monocytes % (A) 4 %; Neutrophils # (A) 11.5 k/uL (1.3-7.7); Neutrophils % (A) 88 %; Platelet Count 536 k/uL (150-450); RBC 3.88 m/uL (4.30-5.90); RDW 14.8 % (11.5-15.5); WBC 13.1 k/uL (3.8-10.6)
[2018-03-10 07:36] LABS: ALT 49 U/L (21-72); AST 36 U/L (17-59); Albumin 2.5 g/dL (3.5-5.0); Alkaline Phosphatase 131 U/L (38-126); Anion Gap 6 mmol/L; Blood Urea Nitrogen 12 mg/dL (9-20); Carbon Dioxide 29 mmol/L (22-30); Chloride 97 mmol/L (98-107); Glucose 107 mg/dL (74-99); Potassium 4.1 mmol/L (3.5-5.1); Sodium 132 mmol/L (137-145); Total Bilirubin <0.1 mg/dL (0.2-1.3); Total Protein 4.9 g/dL (6.3-8.2)
[2018-03-10] MEDS: NICOTINE 21MG/24HR PATCH TRANSDERM SCH (08:11)
[2018-03-10] MEDS: DEXAMETHASONE 4 MG TAB PO SCH ×3 (08:11→17:57)
[2018-03-10] MEDS: PRIMIDONE 50 MG TAB PO SCH ×2 (08:11→20:34)
[2018-03-10] MEDS: MONTELUKAST 10 MG TAB PO SCH (08:11)
[2018-03-10] MEDS: IPRATROPIUM-ALBUTEROL 3 ML NEB INHALATION SCH ×4 (09:22→19:04)
[2018-03-10] MEDS: TAFINLAR PO SCH ×2 (10:12→16:07)
[2018-03-10] MEDS: Trametinib Dimethyl Sulfoxide [Mekinist] PO SCH (16:06)
[2018-03-10] MEDS: SODIUM CHLORIDE 0.9% 1,000 ML IV SCH (17:57)
--- NOTE | 2018-03-10 18:09 | P.HPIM ---
History of Present Illness H&P Date: 03/10/18 Chief Complaint: Right-sided chest pain This is a 62-year-old male presented to the emergency room for increasing right-sided chest pain. He reports that his reservation clerk to 1500 mL out of his pigtail catheter his chest. This is from malignant pleural effusions. She done on Sunday. He felt fine. Sunday reports the nurse from home care did the same thing, it became very painful for him and she was doing this. There was questionable blood clot tenderness, but the patient indicates while the nurse saw this, he did not Right pleural fluid is positive for malignant cells consistent with metastatic melanoma. The patient has a history of coronary artery disease, COPD, myocardial infarction, osteoarthritis, sleep apnea, and anxiety. The patient is a current cigarette smoker and reports smoking presently 2 packs per day. He denies chest pain or pressure. Denies dizziness or lightheadedness. Denies nausea or vomiting. He denies significant shortness of breath. Indicates appetite is slightly decreased. Otherwise he is feeling okay at this time. Review of Systems All systems: negative Past Medical History Past Medical History: Cancer, Myocardial Infarction ([place]) Additional Past Medical History / Comment(s): Metastatic melanoma of the L posterior pelvis, Left shoulder, brain, right lung. ANNETTE Last Myocardial Infarction Date:: 2003 History of Any Multi-Drug Resistant Organisms: None Reported Past Surgical History: Heart Catheterization With Stent Additional Past Surgical History / Comment(s): melanoma excision from back, pelvic biopsy. b/l cataracts Past Anesthesia/Blood Transfusion Reactions: No Reported Reaction Date of Last Stent Placement:: 2003 Past Psychological History: Anxiety Smoking Status: Current some day smoker Past Alcohol Use History: None Reported Additional Past Alcohol Use History / Comment(s): Pt started smoking at age 13 and is a 2 1/2 ppd smoker. Past Drug Use History: None Reported - Past Family History Father Family Medical History: Cancer Additional Family Medical History / Comment(s): Father of lung cancer. He was a smoker. He had glaucoma and cataracts and macular degeneration. Mother Family Medical History: Cancer, COPD Additional Family Medical History / Comment(s): Mother had breast cancer. She was an alcoholic. Medications and Allergies Home Medications Medication Instructions Recorded Confirmed Type Tafinlar 3 tab PO BID 10/07/15 03/09/18 History Trametinib Dimethyl Sulfoxide 2 mg PO HS 10/07/15 03/09/18 History [Mekinist] Aspirin EC [Ecotrin] 325 mg PO HS 11/09/15 03/09/18 History HYDROcodone/APAP 10-325MG [[place] 1 tab PO Q8H 11/09/15 03/09/18 History 10-325] Sertraline [Zoloft] 100 mg PO HS 11/09/15 03/09/18 History traZODone HCL [Desyrel] 100 mg PO HS tab 11/12/15 03/09/18 Rx Albuterol Inhaler [Ventolin Hfa 2 puff INHALATION RT-QID PRN 02/22/18 03/09/18 History Inhaler] LORazepam [Ativan] 1 mg PO TID PRN 02/22/18 03/09/18 History Montelukast [Singulair] 10 mg PO DAILY 02/22/18 03/09/18 History Primidone [Mysoline] 50 mg PO BID 02/22/18 03/09/18 History Temazepam [Restoril] 30 mg PO HS 02/22/18 03/09/18 History diphenhydrAMINE HCL [Benadryl] 25 mg PO HS PRN 02/22/18 03/09/18 History fentaNYL 25MCG/HR PATCH [[place]ages[place] 1 patch TRANSDERM Q72H PRN 02/22/18 03/09/18 History 25MCG/HR] fentaNYL 100MCG/HR PATCH 1 patch TRANSDERM Q72H 02/23/18 03/09/18 History [Duragesic 100MCG/HR] Dexamethasone 4 mg PO Q6H 03/09/18 03/09/18 History Ipratropium-Albuterol Nebulize 3 ml INHALATION RT-QID 03/09/18 03/09/18 History [Duoneb 0.5 mg-3 mg/3 ml Soln] Nicotine 21Mg/24Hr Patch [Habitrol 1 patch TRANSDERM DAILY 03/09/18 03/09/18 History 21Mg/24Hr Patch] Allergies Allergy/AdvReac Type Severity Reaction Status Date / Time amoxicillin Allergy Rash/Hives Verified 03/09/18 15:33 morphine AdvReac Hallucinati Verified 03/09/18 15:33 ons oxycodone HCl AdvReac Confusion Verified 03/09/18 15:33 [From OxyContin] Morphine Family AdvReac Family Uncoded 03/09/18 15:32 history of altered mental status Physical Exam Vitals: Vital Signs Temp Pulse Pulse Resp BP Pulse Ox 03/10/18 15:52 90 16 03/10/18 15:40 92 16 03/10/18 15:00 97.1 F L 87 18 127/77 100 03/10/18 11:48 92 03/10/18 11:37 92 03/10/18 05:00 97.0 F L 89 16 123/61 95 03/09/18 23:00 97.6 F 102 H 16 121/71 92 L Intake and Output 03/10/18 03/10/18 03/10/18 06:59 14:59 22:59 Intake Total 160 Output Total 100 Balance 160 -100 Intake: Intake, IV Titration 160 Amount Sodium Chloride 0.9% 1, 160 000 ml @ 20 mls/hr IV . Q24H [facility] Rx#:[id number] Output: Urine 100 Other: Voiding Method Urinal Urinal Urinal GENERAL: This is a 62-year-old male in no apparent distress at the time of examination. Pleasant and cooperative. HEENT: Head is atraumatic, normocephalic. Pupils are equal, round, and reactive to light. Sclerae anicteric. Conjunctivae are clear. Mucus membranes of the mouth are moist. Neck is supple. RESPIRATORY: Essentially clear to auscultation, diminished in right lower lobe. No wheezes auscultated No use of accessory muscles. Patient maintaining oxygen saturation greater than 92%. No chest wall tenderness is noted on palpation or with deep breathing. There is a pigtail catheter in the right chest wall anterior. CARDIOVASCULAR: Regular rate and rhythm. S1 and S2 noted. No systolic or diastolic murmur auscultated. No JVD noted. No S3 or S4 noted. Telemetry shows occasional PVCs GASTROINTESTINAL: No distention noted. Abdomen soft and round. Normal active bowel sounds auscultated x 4 quadrants. No pain or tenderness noted upon palpation. INTEGUMENTARY: No cyanosis. No jaundice. No rashes noted. No cellulitis noted. EXTREMITIES: 2+ peripheral pulses. No evidence of peripheral edema. No calf tenderness noted. NEUROLOGIC: Cranial nerves II-XII intact. PSYCHIATRIC: Awake, alert, and oriented X 3. Appropriate affect. Intact judgement and insight. Results CBC & Chem 7: 03/10/18 06:53 03/10/18 06:53 Labs: Abnormal Lab Results - Last 24 Hours (Table) 03/10/18 03/10/18 Range/Units 06:53 06:53 WBC 13.1 H (3.8-10.6) k/uL RBC 3.88 L (4.30-5.90) m/uL Hgb 9.8 L (13.0-17.5) gm/dL Hct 31.8 L (39.0-53.0) % MCHC 30.9 L (31.0-37.0) g/dL Plt Count 536 H (150-450) k/uL Neutrophils # 11.5 H (1.3-7.7) k/uL Lymphocytes # 0.8 L (1.0-4.8) k/uL Sodium 132 L (137-145) mmol/L Chloride 97 L (98-107) mmol/L Creatinine 0.48 L (0.66-1.25) mg/dL Glucose 107 H (74-99) mg/dL Calcium 8.0 L (8.4-10.2) mg/dL Total Bilirubin <0.1 L (0.2-1.3) mg/dL Alkaline Phosphatase 131 H (38-126) U/L Total Protein 4.9 L (6.3-8.2) g/dL Albumin 2.5 L (3.5-5.0) g/dL Chest x-ray: report reviewed Thrombosis Risk Factor Assmnt - DVT/VTE Prophylaxis DVT/VTE Prophylaxis: Mechanical Prophylaxis ordered - Choose All That Apply Any of the Below Risk Factors Present?: Yes Each Factor Represents 1 point: Age 41-60 years, Obesity (BMI >25), Serious lung disease incl. pneumonia (< 1month) Each Risk Factor Represents 2 Points: Malignancy Other congenital or acquired thrombophilia - If yes, enter type in comment: No Thrombosis Risk Factor Assessment Total Risk Factor Score: 5 Thrombosis Risk Factor Assessment Level: High Risk Assessment and Plan (1) Intractable pain Current Visit: Yes Status: Acute Code(s): R52 - PAIN, UNSPECIFIED SNOMED Code(s): 66340875 (2) Melanoma Current Visit: Yes Status: Acute Code(s): C43.9 - MALIGNANT MELANOMA OF SKIN , UNSPECIFIED SNOMED Code(s): 639480940 (3) Pleural effusion Current Visit: Yes Status: Acute Code(s): J90 - PLEURAL EFFUSION, NOT ELSEWHERE CLASSIFIED SNOMED Code(s): 50909967 (4) Metastatic melanoma Current Visit: Yes Status: Chronic Priority: High Code(s): C79.9 - SECONDARY MALIGNANT NEOPLASM OF UNSPECIFIED SITE SNOMED Code(s): 190318401 (5) Pain management Current Visit: No Status: Acute Code(s): R52 - PAIN, UNSPECIFIED SNOMED Code(s): 065605967 (6) Recurrent pleural effusion on right Current Visit: No Status: Acute Code(s): J90 - PLEURAL EFFUSION, NOT ELSEWHERE CLASSIFIED SNOMED Code(s): 67771884 (7) Anemia Current Visit: No Status: Chronic Priority: Medium Code(s): D64.9 - ANEMIA , UNSPECIFIED SNOMED Code(s): 862291453 (8) COPD (chronic obstructive pulmonary disease) Current Visit: No Status: Chronic Code(s): J44.9 - CHRONIC OBSTRUCTIVE PULMONARY DISEASE, UNSPECIFIED SNOMED Code(s): 28247707 (9) Leukocytosis Current Visit: Yes Status: Acute Code(s): D72.829 - ELEVATED WHITE BLOOD CELL COUNT, UNSPECIFIED SNOMED Code(s): 076895246 Plan: Continue on his medications were for pain which were reviewed today. We'll consult Dr. Quach, his reservation clerk. We'll also consult hematology oncology. We'll repeat his labs and monitor this. SCDs for DVT prophylaxis. Reevaluate next 24 hours.
[2018-03-10] MEDS: ASPIRIN 325 MG TAB PO SCH (20:33)
[2018-03-10] MEDS: SERTRALINE 100 MG TAB PO SCH (20:34)
[2018-03-10] MEDS: traZODone HCL 100 MG TAB PO SCH (20:34)
[2018-03-11] MEDS: DEXAMETHASONE 4 MG TAB PO SCH ×5 (00:29→22:11)
[2018-03-11] MEDS: TEMAZEPAM 30 MG CAP PO PRN ×2 (00:32→22:11)
[2018-03-11] MEDS: TAFINLAR PO SCH ×2 (06:04→16:50)
[2018-03-11 06:59] LABS: Basophils % (A) 0 %; Eosinophils % (A) 0 %; HCT 32.9 % (39.0-53.0); HGB 10.1 gm/dL (13.0-17.5); Hypochromasia Moderate; Lymphocytes # (A) 0.6 k/uL (1.0-4.8); Lymphocytes % (A) 5 %; MCH 25.1 pg (25.0-35.0); MCHC 30.7 g/dL (31.0-37.0); MCV 81.7 fL (80.0-100.0); Mean Platelet Volume 6.2; Monocytes # (A) 0.4 k/uL (0-1.0); Monocytes % (A) 4 %; Neutrophils # (A) 11.5 k/uL (1.3-7.7); Neutrophils % (A) 91 %; Platelet Count 526 k/uL (150-450); RBC 4.02 m/uL (4.30-5.90); RDW 14.9 % (11.5-15.5); WBC 12.7 k/uL (3.8-10.6)
[2018-03-11 07:09] LABS: Anion Gap 5 mmol/L; Blood Urea Nitrogen 8 mg/dL (9-20); Calcium 8.2 mg/dL (8.4-10.2); Carbon Dioxide 33 mmol/L (22-30); Chloride 94 mmol/L (98-107); Glucose 110 mg/dL (74-99); Potassium 4.8 mmol/L (3.5-5.1); Sodium 132 mmol/L (137-145)
[2018-03-11] MEDS: MONTELUKAST 10 MG TAB PO SCH (07:49)
[2018-03-11] MEDS: NICOTINE 21MG/24HR PATCH TRANSDERM SCH (07:49)
[2018-03-11] MEDS: PRIMIDONE 50 MG TAB PO SCH ×2 (07:49→19:56)
[2018-03-11] MEDS: IPRATROPIUM-ALBUTEROL 3 ML NEB INHALATION SCH ×4 (08:25→19:38)
[2018-03-11] MEDS: LORazepam 1 MG TAB PO PRN ×2 (08:45→19:48)
[2018-03-11] MEDS: HYDROcodone/APAP 10-325MG 1 EACH TAB PO PRN ×2 (10:10→19:47)
[2018-03-11] MEDS ORDERED: IPRATROPIUM-ALBUTEROL 3 ML NEB INHALATION PRN (10:35)
--- NOTE | 2018-03-11 13:10 | P.PN ---
Subjective Progress Note Date: 03/11/18 This is a 62-year-old male presented to the emergency room for increasing right-sided chest pain. He reports that his medicinal chemist to 1500 mL out of his pigtail catheter his chest. This is from malignant pleural effusions. She done on Sunday. He felt fine. Sunday reports the nurse from home care did the same thing, it became very painful for him and she was doing this. There was questionable blood clot tenderness, but the patient indicates while the nurse saw this, he did not Right pleural fluid is positive for malignant cells consistent with metastatic melanoma. The patient has a history of coronary artery disease, COPD, myocardial infarction, osteoarthritis, sleep apnea, and anxiety. The patient is a current cigarette smoker and reports smoking presently 2 packs per day. He denies chest pain or pressure. Denies dizziness or lightheadedness. Denies nausea or vomiting. He denies significant shortness of breath. Indicates appetite is slightly decreased. Otherwise he is feeling okay at this time. Above per Dr. Sigala 01/11/2018 Patient seen and examined at the bedside. Patient states his pain has improved since admission. Patient currently receiving Fentanyl patch and [place]. Dilaudid is also ordered for severe pain. Patient reports mild SOB at rest. Denies chest pain or pressure. Vital signs are stable. Chest xray has been ordered but not completed yet. Objective - Vital Signs Vital signs: Vital Signs Temp 98.0 F 03/11/18 09:05 Pulse 95 03/11/18 09:05 Resp 16 03/11/18 09:05 BP 104/63 03/11/18 09:05 Pulse Ox 96 03/11/18 09:05 Intake & Output 03/10/18 03/11/18 03/11/18 18:59 06:59 18:59 Intake Total 80 Output Total 600 200 Balance -600 -120 Weight 110.223 kg Intake: Intake, IV Titration 80 Amount Sodium Chloride 0.9% 1, 80 000 ml @ 20 mls/hr IV . Q24H [facility] Rx#:[id number] Output: Urine 600 200 Other: Voiding Method Urinal Toilet Urinal # Voids 2 3 - Exam GENERAL: This is a 62-year-old male in no apparent distress at the time of examination. Pleasant and cooperative. HEENT: Head is atraumatic, normocephalic. Pupils are equal, round, and reactive to light. Sclerae anicteric. Conjunctivae are clear. Mucus membranes of the mouth are moist. Neck is supple. RESPIRATORY: Pleurx catheter noted to right chest. Clear to ausculation, diminished. No wheezes, rales, or rhonchi. No use of accessory muscles. Patient maintaining oxygen saturation greater than 92%. No chest wall tenderness is noted on palpation or with deep breathing. CARDIOVASCULAR: Regular rate and rhythm. S1 and S2 noted. No systolic or diastolic murmur auscultated. No JVD noted. No S3 or S4 noted. GASTROINTESTINAL: No distention noted. Abdomen soft and round. Normal active bowel sounds auscultated x 4 quadrants. No pain or tenderness noted upon palpation. INTEGUMENTARY: No cyanosis. No jaundice. No rashes noted. No cellulitis noted. EXTREMITIES: 2+ peripheral pulses. No evidence of peripheral edema. No calf tenderness noted. NEUROLOGIC: Cranial nerves II-XII intact. PSYCHIATRIC: Awake, alert, and oriented X 3. Appropriate affect. Intact judgement and insight. - Labs CBC & Chem 7: 03/11/18 06:23 03/11/18 06:23 Labs: Abnormal Lab Results - Last 24 Hours (Table) 03/11/18 03/11/18 Range/Units 06:23 06:23 WBC 12.7 H (3.8-10.6) k/uL RBC 4.02 L (4.30-5.90) m/uL Hgb 10.1 L (13.0-17.5) gm/dL Hct 32.9 L (39.0-53.0) % MCHC 30.7 L (31.0-37.0) g/dL Plt Count 526 H (150-450) k/uL Neutrophils # 11.5 H (1.3-7.7) k/uL Lymphocytes # 0.6 L (1.0-4.8) k/uL Sodium 132 L (137-145) mmol/L Chloride 94 L (98-107) mmol/L Carbon Dioxide 33 H (22-30) mmol/L BUN 8 L (9-20) mg/dL Creatinine 0.51 L (0.66-1.25) mg/dL Glucose 110 H (74-99) mg/dL Calcium 8.2 L (8.4-10.2) mg/dL Assessment and Plan Plan: ASSESSMENT: Intractable pain, s/p drainage of Pleurx catheter Metastatic melanoma, originally involving his back, treated with surgical resection, metastases involving left hip and right axillary nodes, patient also reports metastases to brain Recurrent right pleural effusion, cytology positive for malignant cells consistent with metastatic melanoma, s/p thoracentesis on 02/24/2018 and Pleurx catheter placement on 03/08/2018 with 2 L of drainage Chronic obstructive pulmonary disease Obstructive sleep apnea, not maintained on CPAP Coronary artery disease with previous stent placement 2013 Osteoarthritis Nicotine dependence, patient is a current cigarette smoker Generalized anxiety disorder Obesity: BMI 33.0 PLAN: Pulmonary on consult. Await further recommendations and input CXR ordered. Await results Oncology on consult. Await further recommendations and input Pain control. Continue current medications. Home meds as appropriate Monitor labs GI prophylaxis: Protonix 40 mg PO Daily DVT prophylaxis: SCDs to bilateral LE Monitor vital signs and address as appropriate Discharge planning: Patient to return home when stable Further recommendations pending patient's course Nurse practitioner note has been reviewed by physician. Signing provider agrees with the documented findings, assessment, and plan of care.
--- NOTE | 2018-03-11 14:23 | P.CONS ---
History of Present Illness - Reason for Consult Consult date: 03/11/18 metastatic Melanoma Requesting physician: Suhas Sigala - Chief Complaint pain - History of Present Illness > fevers or chills, his appetite is decent, no nausea or vomiting, no abdominal pain or distention, no changes in bowel or bladder habits. Patient is fully ambulatory. Malignancy history: Patient was initially diagnosed with melanoma on the left upper back in 2006. Wide excision, margins clear, no adjuvant therapy was needed. Patient moved to [place] after that. He started having hip pain with a 40 pound weight loss, he was seen by a doctor there and told he likely had metastatic disease. He returned to [place] to be with his family he was seen by Dr. Long at [facility] and had an MRI showing a large 12 cm pelvic mass. Patient was taken to surgery 09/04/2015 with excisional biopsy revealing metastatic melanoma. Computed tomography scan of the chest and MRI of the brain were negative at that time. Treatment as stated above started Sep 2015 with good tolerance. Patient was started on oral Tafinlar and Mekinist 2015 and tolerated well until recent hospitalization in February for progressive Shortness of breath. He was found to have a large pleural effusion, thoracentesis and pathology revealed consistent with malignant metastatic melanoma. During this time complaints of increased confusion and weakness and MRI brain revealed new metastatic Brain Lesions. SRS radiotherapy was to begin on the brain lesions and therapy was changed from Mekinist and tanfinlar to Opdivo (Scheduled to start next week). He will continue on Xgeva for known Bone Metastasis. He is status post pig tail catheter on right side pleural space. Yesterday homecare nurse drained and since this time he has had uncontrolled pain. THerefore he presented to emergency department. Review of Systems A 14 point review of systems assessed and completed and all negative except HPI Past Medical History Past Medical History: Cancer, Myocardial Infarction ([place]) Additional Past Medical History / Comment(s): Metastatic melanoma of the L posterior pelvis, Left shoulder, brain, right lung. ANNETTE Last Myocardial Infarction Date:: 2003 History of Any Multi-Drug Resistant Organisms: None Reported Past Surgical History: Heart Catheterization With Stent Additional Past Surgical History / Comment(s): melanoma excision from back, pelvic biopsy. b/l cataracts Past Anesthesia/Blood Transfusion Reactions: No Reported Reaction Date of Last Stent Placement:: 2003 Past Psychological History: Anxiety Smoking Status: Current some day smoker Past Alcohol Use History: None Reported Additional Past Alcohol Use History / Comment(s): Pt started smoking at age 13 and is a 2 1/2 ppd smoker. Past Drug Use History: None Reported - Past Family History Father Family Medical History: Cancer Additional Family Medical History / Comment(s): Father of lung cancer. He was a smoker. He had glaucoma and cataracts and macular degeneration. Mother Family Medical History: Cancer, COPD Additional Family Medical History / Comment(s): Mother had breast cancer. She was an alcoholic. Medications and Allergies Home Medications Medication Instructions Recorded Confirmed Type Tafinlar 3 tab PO BID 10/07/15 03/09/18 History Trametinib Dimethyl Sulfoxide 2 mg PO HS 10/07/15 03/09/18 History [Mekinist] Aspirin EC [Ecotrin] 325 mg PO HS 11/09/15 03/09/18 History HYDROcodone/APAP 10-325MG [[place] 1 tab PO Q8H 11/09/15 03/09/18 History 10-325] Sertraline [Zoloft] 100 mg PO HS 11/09/15 03/09/18 History traZODone HCL [Desyrel] 100 mg PO HS tab 11/12/15 03/09/18 Rx Albuterol Inhaler [Ventolin Hfa 2 puff INHALATION RT-QID PRN 02/22/18 03/09/18 History Inhaler] LORazepam [Ativan] 1 mg PO TID PRN 02/22/18 03/09/18 History Montelukast [Singulair] 10 mg PO DAILY 02/22/18 03/09/18 History Primidone [Mysoline] 50 mg PO BID 02/22/18 03/09/18 History Temazepam [Restoril] 30 mg PO HS 02/22/18 03/09/18 History diphenhydrAMINE HCL [Benadryl] 25 mg PO HS PRN 02/22/18 03/09/18 History fentaNYL 25MCG/HR PATCH [Duragesic 1 patch TRANSDERM Q72H PRN 02/22/18 03/09/18 History 25MCG/HR] fentaNYL 100MCG/HR PATCH 1 patch TRANSDERM Q72H 02/23/18 03/09/18 History [Duragesic 100MCG/HR] Dexamethasone 4 mg PO Q6H 03/09/18 03/09/18 History Ipratropium-Albuterol Nebulize 3 ml INHALATION RT-QID 03/09/18 03/09/18 History [Duoneb 0.5 mg-3 mg/3 ml Soln] Nicotine 21Mg/24Hr Patch [Habitrol 1 patch TRANSDERM DAILY 03/09/18 03/09/18 History 21Mg/24Hr Patch] Allergies Allergy/AdvReac Type Severity Reaction Status Date / Time amoxicillin Allergy Rash/Hives Verified 03/09/18 15:33 morphine AdvReac Hallucinati Verified 03/09/18 15:33 ons oxycodone HCl AdvReac Confusion Verified 03/09/18 15:33 [From OxyContin] Morphine Family AdvReac Family Uncoded 03/09/18 15:32 history of altered mental status Physical Exam Vitals: Vital Signs Temp Pulse Pulse Resp BP Pulse Ox 03/11/18 12:36 80 03/11/18 12:23 76 03/11/18 09:05 98.0 F 95 16 104/63 96 03/11/18 08:39 90 03/11/18 08:25 88 03/10/18 23:00 97.7 F 94 16 135/108 95 03/10/18 19:22 90 03/10/18 19:05 88 96 03/10/18 15:52 90 16 03/10/18 15:40 92 16 03/10/18 15:00 97.1 F L 87 18 127/77 100 Intake and Output 03/10/18 03/11/18 03/11/18 22:59 06:59 14:59 Intake Total 80 Output Total 500 200 Balance -420 -200 Intake: Intake, IV Titration 80 Amount Sodium Chloride 0.9% 1, 80 000 ml @ 20 mls/hr IV . Q24H [facility] Rx#:[id number] Output: Urine 500 200 Other: Voiding Method Toilet Urinal # Voids 2 3 Weight 110.223 kg - Constitutional General appearance: cooperative, no acute distress - EENT Eyes: EOMI, PERRLA, dentition normal ENT: hard of hearing, NA/AT, normal oropharynx - Neck supple, midline Neck: normal ROM - Respiratory Pleurex catheter site CDI Respiratory: bilateral: diminished (right) - Cardiovascular Rhythm: regular Heart sounds: normal: S1, S2 - Gastrointestinal General gastrointestinal: normal bowel sounds, soft - Integumentary Integumentary: pale - Neurologic Neurologic: CNII-XII intact - Musculoskeletal Musculoskeletal: generalized weakness, strength equal bilaterally - Psychiatric confused intermittently at time but today alert and oriented x3 Psychiatric: A&O x's 3, appropriate affect Results CBC & Chem 7: 03/11/18 06:23 03/11/18 06:23 Labs: Abnormal Lab Results - Last 24 Hours (Table) 03/11/18 03/11/18 Range/Units 06:23 06:23 WBC 12.7 H (3.8-10.6) k/uL RBC 4.02 L (4.30-5.90) m/uL Hgb 10.1 L (13.0-17.5) gm/dL Hct 32.9 L (39.0-53.0) % MCHC 30.7 L (31.0-37.0) g/dL Plt Count 526 H (150-450) k/uL Neutrophils # 11.5 H (1.3-7.7) k/uL Lymphocytes # 0.6 L (1.0-4.8) k/uL Sodium 132 L (137-145) mmol/L Chloride 94 L (98-107) mmol/L Carbon Dioxide 33 H (22-30) mmol/L BUN 8 L (9-20) mg/dL Creatinine 0.51 L (0.66-1.25) mg/dL Glucose 110 H (74-99) mg/dL Calcium 8.2 L (8.4-10.2) mg/dL Assessment and Plan Plan: Assessment and Recommendations: 1. Increased Pain in Right Chest - Site of Plurex Drainage: - Per surgery to ensure functioning and placement 2. Metastatic Melanoma - Lungs, Pleural Fluid, Brain, and Bones - Is planning to begin new therapy with Opdivo next week as outpatient, will continue with Xgeva - Continue XRT to Brain, If ppatient requires greater than 24 hour hospitalization Radiation Oncology to be notified. - Treatment is paliative in the picture of progressive metastastic cancer, patient aware of treatment and goals of treatment THank you for allowing us to participate in the care of this patient, we will follow along with you
--- NOTE | 2018-03-11 14:23 | P.CNPUL ---
History of Present Illness Consult date: 03/11/18 Requesting physician: Suhas Sigala Reason for consult: chest pain, pleural effusion, other Chief complaint: Dyspnea, right-sided chest pain History of present illness: Mr. Acuña is a 62-year-old white male patient of Dr. Sigala who presented to the emergency department on 03/09/2018 at 1500 for evaluation of significant right-sided chest pain and dyspnea following drainage of 1.25 liters of bloody effusion from his right Pleurx catheter by the visiting nurse on Sunday. Patient had the right Pleurx catheter placed the day before on [address] Smith, with a total of 2 L of bloody effusion drained on that day. He was recently hospitalized from 02/22/2018 - 02/24/2018 for acute hypoxemic respiratory failure secondary to a large right pleural effusion, patient underwent right-sided thoracentesis with drainage of 2600 mL of dark sanguinous fluid, and the cytology was positive for malignant cells consistent with metastatic melanoma. Patient had his original melanoma on his back and had a wide excision with neoadjuvant therapy in 2006. He was diagnosed with recurrent metastatic melanoma in 2016, on his left hip and right axillary node. Has been under the care of Dr. Henriquez, currently on Mekinist and Tafinlar. Cardiothoracic surgery was consulted for placement of Pleurx catheter doing that admission, and Pleurix catheter was placed when there was enough fluid buildup. Most recent echocardiogram showed preserved left ventricular systolic function with EF of 60-65%, mild pulmonary hypertension with right-sided pressures of 38 mmHg. Recent MRI from 03/06/2018 shows 3 intracranial lesions with the largest measuring 2 x 2.3 centimeters adjacent to the body of the right lateral ventricle, and there is mass effect and compression, findings suspicious for intracranial metastasis, and there was suspicion of hemorrhagic metastasis. CT chest without contrast prior to placement of Pleurx catheter, on 03/06/2018 showed increased large right pleural effusion, right middle and right lower lobar collapse with segmental atelectasis of the right upper lobe. Progression of the patient's mediastinal lymphadenopathy, compared most recent CT from 02/21/2018. There was increase in size to 9 mm of the inferior lingula pulmonary nodule as compared to 7 mm previously. This was on a background COPD and prior granulomatous disease. Chest x-ray completed in the emergency department on 03/09/2018 showed resolution of the previously noted right pleural effusion, and mild atelectasis in the right lower lobe, evidence of pneumothorax. Lab work showed WBC of 9.2, hemoglobin of 11.2, INR of 1.0, sodium 133, chloride is 94, CO2 32, BUN of 13, creatinine 0.6. Troponins were negative 3, cardiac enzymes were negative. LFTs normal. Past medical history is positive for anemia, coronary artery disease, COPD, osteoarthritis, obstructive sleep apnea not utilizing CPAP, DJD, anxiety, past history of smoking. Patient is still having moderate amount of right-sided chest discomfort, which is aggravated by deep breathing, and coughing. He has frequent loose cough, with production of whitish to clear sputum. He remains afebrile, no chills, he is on oral Decadron, he is on [place] 10 mg, IV Dilaudid, and 125 mics of transdermal fentanyl patch for pain control. Review of Systems All systems: negative Constitutional: Denies chills, Denies fever Eyes: denies blurred vision, denies pain Ears, nose, mouth and throat: Denies headache, Denies sore throat Cardiovascular: Denies chest pain, Denies shortness of breath Respiratory: Reports dyspnea, Reports pain, Reports pain on inspiration, Reports pleurisy, Denies cough Gastrointestinal: Denies abdominal pain, Denies diarrhea, Denies nausea, Denies vomiting Musculoskeletal: Denies myalgias Integumentary: Denies pruritus, Denies rash Neurological: Denies numbness, Denies weakness Psychiatric: Denies anxiety, Denies depression Endocrine: Denies fatigue, Denies weight change Past Medical History Past Medical History: Cancer, Myocardial Infarction ([place]) Additional Past Medical History / Comment(s): Metastatic melanoma of the L posterior pelvis, Left shoulder, brain, right lung. ANNETTE Last Myocardial Infarction Date:: 2003 History of Any Multi-Drug Resistant Organisms: None Reported Past Surgical History: Heart Catheterization With Stent Additional Past Surgical History / Comment(s): melanoma excision from back, pelvic biopsy. b/l cataracts Past Anesthesia/Blood Transfusion Reactions: No Reported Reaction Date of Last Stent Placement:: 2003 Past Psychological History: Anxiety Smoking Status: Current some day smoker Past Alcohol Use History: None Reported Additional Past Alcohol Use History / Comment(s): Pt started smoking at age 13 and is a 2 1/2 ppd smoker. Past Drug Use History: None Reported - Past Family History Father Family Medical History: Cancer Additional Family Medical History / Comment(s): Father of lung cancer. He was a smoker. He had glaucoma and cataracts and macular degeneration. Mother Family Medical History: Cancer, COPD Additional Family Medical History / Comment(s): Mother had breast cancer. She was an alcoholic. Medications and Allergies Home Medications Medication Instructions Recorded Confirmed Type Tafinlar 3 tab PO BID 10/07/15 03/09/18 History Trametinib Dimethyl Sulfoxide 2 mg PO HS 10/07/15 03/09/18 History [Mekinist] Aspirin EC [Ecotrin] 325 mg PO HS 11/09/15 03/09/18 History HYDROcodone/APAP 10-325MG [[place] 1 tab PO Q8H 11/09/15 03/09/18 History 10-325] Sertraline [Zoloft] 100 mg PO HS 11/09/15 03/09/18 History traZODone HCL [Desyrel] 100 mg PO HS tab 11/12/15 03/09/18 Rx Albuterol Inhaler [Ventolin Hfa 2 puff INHALATION RT-QID PRN 02/22/18 03/09/18 History Inhaler] LORazepam [Ativan] 1 mg PO TID PRN 02/22/18 03/09/18 History Montelukast [Singulair] 10 mg PO DAILY 02/22/18 03/09/18 History Primidone [Mysoline] 50 mg PO BID 02/22/18 03/09/18 History Temazepam [Restoril] 30 mg PO HS 02/22/18 03/09/18 History diphenhydrAMINE HCL [Benadryl] 25 mg PO HS PRN 02/22/18 03/09/18 History fentaNYL 25MCG/HR PATCH [Duragesic 1 patch TRANSDERM Q72H PRN 02/22/18 03/09/18 History 25MCG/HR] fentaNYL 100MCG/HR PATCH 1 patch TRANSDERM Q72H 02/23/18 03/09/18 History [Duragesic 100MCG/HR] Dexamethasone 4 mg PO Q6H 03/09/18 03/09/18 History Ipratropium-Albuterol Nebulize 3 ml INHALATION RT-QID 03/09/18 03/09/18 History [Duoneb 0.5 mg-3 mg/3 ml Soln] Nicotine 21Mg/24Hr Patch [Habitrol 1 patch TRANSDERM DAILY 03/09/18 03/09/18 History 21Mg/24Hr Patch] Allergies Allergy/AdvReac Type Severity Reaction Status Date / Time amoxicillin Allergy Rash/Hives Verified 03/09/18 15:33 morphine AdvReac Hallucinati Verified 03/09/18 15:33 ons oxycodone HCl AdvReac Confusion Verified 03/09/18 15:33 [From OxyContin] Morphine Family AdvReac Family Uncoded 03/09/18 15:32 history of altered mental status Physical Exam Vitals: Vital Signs Temp Pulse Pulse Resp BP Pulse Ox 03/11/18 09:05 98.0 F 95 16 104/63 96 03/11/18 08:39 90 03/11/18 08:25 88 03/10/18 23:00 97.7 F 94 16 135/108 95 03/10/18 19:22 90 03/10/18 19:05 88 96 03/10/18 15:52 90 16 03/10/18 15:40 92 16 03/10/18 15:00 97.1 F L 87 18 127/77 100 Intake and Output 03/10/18 03/11/18 03/11/18 22:59 06:59 14:59 Intake Total 80 Output Total 500 200 Balance -420 -200 Intake: Intake, IV Titration 80 Amount Sodium Chloride 0.9% 1, 80 000 ml @ 20 mls/hr IV . Q24H [facility] Rx#:[id number] Output: Urine 500 200 Other: Voiding Method Toilet Urinal # Voids 2 3 Weight 110.223 kg GENERAL EXAM: Alert, pleasant, 62-year-old white male in no apparent distress. HEAD: Normocephalic/atraumatic. EYES: Normal reaction of pupils, equal size. Conjunctiva pink, sclera white. NOSE: Clear with pink turbinates. THROAT: No erythema or exudates. NECK: No masses, no JVD, no thyroid enlargement, no adenopathy. CHEST: No chest wall deformity. Symmetrical expansion. LUNGS: Equal air entry with diminished breath sounds at the bases, more so on the right, and scattered crackles CVS: Regular rate and rhythm, normal S1 and S2, no gallops, no murmurs, no rubs ABDOMEN: Soft, nontender. No hepatosplenomegaly, normal bowel sounds, no guarding or rigidity. EXTREMITIES: No clubbing, no edema, no cyanosis, 2+ pulses and upper and lower extremities. MUSCULOSKELETAL: Muscle strength and tone normal. SPINE: No scoliosis or deformity SKIN: No rashes CENTRAL NERVOUS SYSTEM: Alert and oriented -3. No focal deficits, tone is normal in all 4 extremities. PSYCHIATRIC: Alert and oriented -3. Appropriate affect. Intact judgment and insight. Results - Laboratory Findings CBC and BMP: 03/11/18 06:23 03/11/18 06:23 PT/INR, D-dimer PT 10.9 sec (9.0-12.0) 03/09/18 15:39 INR 1.1 (<1.2) 03/09/18 15:39 Abnormal lab findings: Abnormal Labs 03/09/18 03/09/18 03/09/18 15:39 15:39 15:39 WBC 14.1 H RBC 4.18 L Hgb 10.8 L Hct 34.5 L MCHC Plt Count 598 H Neutrophils # 12.9 H Lymphocytes # 0.6 L Sodium 133 L Chloride 95 L Carbon Dioxide BUN Creatinine 0.50 L Glucose 128 H Calcium Total Bilirubin Alkaline Phosphatase 145 H Total Creatine Kinase 49 L Total Protein 5.3 L Albumin 2.6 L 03/10/18 03/10/18 03/11/18 06:53 06:53 06:23 WBC 13.1 H RBC 3.88 L Hgb 9.8 L Hct 31.8 L MCHC 30.9 L Plt Count 536 H Neutrophils # 11.5 H Lymphocytes # 0.8 L Sodium 132 L 132 L Chloride 97 L 94 L Carbon Dioxide 33 H BUN 8 L Creatinine 0.48 L 0.51 L Glucose 107 H 110 H Calcium 8.0 L 8.2 L Total Bilirubin <0.1 L Alkaline Phosphatase 131 H Total Creatine Kinase Total Protein 4.9 L Albumin 2.5 L 03/11/18 06:23 WBC 12.7 H RBC 4.02 L Hgb 10.1 L Hct 32.9 L MCHC 30.7 L Plt Count 526 H Neutrophils # 11.5 H Lymphocytes # 0.6 L Sodium Chloride Carbon Dioxide BUN Creatinine Glucose Calcium Total Bilirubin Alkaline Phosphatase Total Creatine Kinase Total Protein Albumin - Diagnostic Findings Chest x-ray: report reviewed, image reviewed Assessment and Plan Plan: Assessment: #1. Acute right-sided pleuritic chest pain and dyspnea following drainage of 1.25 L of bloody effusion from the right Pleurx catheter on 03/09/2018. Patient had a placement of right Pleurx catheter on 03/08/2018 with drainage of 2 L of bloody effusion. Pleural fluid cytology was previously positive for malignant cells consistent with metastatic melanoma on 02/25/2018 #2. Recent hospitalization from 02/22/2018 - 02/24/2018 for acute hypoxemic respiratory failure secondary to a large right pleural effusion, status post drainage of 2600 mL of bloody pleural fluid #3. Metastatic melanoma, diagnosed in 2006, status post surgical resection followed by neoadjuvant chemotherapy, and most recently metastasized to left hip , right axillary nodes, and brain #4. Chronic obstructive pulmonary disease #5. Obstructive sleep apnea, not wearing CPAP or graft #6. Hernia artery disease with previous stenting #7. Nicotine dependence, ongoing, #8. Anxiety #9. Osteoarthritis Plan: Repeat chest x-ray today, we'll consult cardiothoracic surgery for management of right Pleurx catheter. Continue nebulized bronchodilators, maintain pain control, patient still has some residual right-sided chest wall discomfort exacerbated by coughing. He producing clear to whitish phlegm, no fever, no chills. Seen by medical oncology, and radiation treatments for brain metastasis will be started after discharge. I performed a history & physical examination of the patient and discussed their management with my nurse practitioner, Adore Breaux. I reviewed the nurse practitioner's note and agree with the documented findings and plan of care. Lung sounds are positive in breath sounds at the bases, with scattered rales. The findings and the impression was discussed with the patient. I attest to the documentation by the nurse practitioner. Time with Patient: Greater than 30
--- NOTE | 2018-03-11 15:54 | P.GSCN ---
History of Present Illness Consult date: 03/11/18 Reason for Consult: Pleurx catheter management Requesting physician: Rosalind Adorno History of present illness: This is a 62-year-old gentleman well known to us as Dr. Smith recently placed a right-sided Pleurx catheter. He follows on an outpatient basis with Dr. Sigala for primary care and Dr. Otoole for malignant metastatic melanoma. He was recently hospitalized in February for progressive shortness of breath, he was found to have a large right-sided pleural effusion and thoracentesis was completed. The pathology was consistent with metastatic melanoma. He again accumulated pleural fluid on the right side rather quickly and we were asked to place a right-sided Pleurx catheter for pleural drainage at home, this was done last March [address] Smith. At the time of the catheter placement 2 L of fluid was removed. The patient was discharged to home the same day. The next day home care followed up and drained 1.25 additional liters of fluid. The patient developed severe uncontrolled pain at his Pleurx catheter site and presented back to [facility] on March 09. He was admitted for pain control. Dr. Smith was consulted for management of the Pleurx catheter. Review of Systems Review of systems was completed and was negative except as noted. - Respiratory Reports dyspnea, Reports pain, Reports pain on inspiration Past Medical History Past Medical History: Cancer, Myocardial Infarction ([place]) Additional Past Medical History / Comment(s): Metastatic melanoma of the L posterior pelvis, Left shoulder, brain, right lung. ANNETTE Last Myocardial Infarction Date:: 2003 History of Any Multi-Drug Resistant Organisms: None Reported Past Surgical History: Heart Catheterization With Stent Additional Past Surgical History / Comment(s): melanoma excision from back, pelvic biopsy. b/l cataracts. Placement of right-sided Pleurx catheter on 10/2017 Past Anesthesia/Blood Transfusion Reactions: No Reported Reaction Date of Last Stent Placement:: 2003 Past Psychological History: Anxiety Smoking Status: Current some day smoker Past Alcohol Use History: None Reported Additional Past Alcohol Use History / Comment(s): Pt started smoking at age 13 and is a 2 1/2 ppd smoker. Past Drug Use History: None Reported - Past Family History Father Family Medical History: Cancer Additional Family Medical History / Comment(s): Father of lung cancer. He was a smoker. He had glaucoma and cataracts and macular degeneration. Mother Family Medical History: Cancer, COPD Additional Family Medical History / Comment(s): Mother had breast cancer. She was an alcoholic. Medications and Allergies Home Medications Medication Instructions Recorded Confirmed Type Tafinlar 3 tab PO BID 10/07/15 03/09/18 History Trametinib Dimethyl Sulfoxide 2 mg PO HS 10/07/15 03/09/18 History [Mekinist] Aspirin EC [Ecotrin] 325 mg PO HS 11/09/15 03/09/18 History HYDROcodone/APAP 10-325MG [[place] 1 tab PO Q8H 11/09/15 03/09/18 History 10-325] Sertraline [Zoloft] 100 mg PO HS 11/09/15 03/09/18 History traZODone HCL [Desyrel] 100 mg PO HS tab 11/12/15 03/09/18 Rx Albuterol Inhaler [Ventolin Hfa 2 puff INHALATION RT-QID PRN 02/22/18 03/09/18 History Inhaler] LORazepam [Ativan] 1 mg PO TID PRN 02/22/18 03/09/18 History Montelukast [Singulair] 10 mg PO DAILY 02/22/18 03/09/18 History Primidone [Mysoline] 50 mg PO BID 02/22/18 03/09/18 History Temazepam [Restoril] 30 mg PO HS 02/22/18 03/09/18 History diphenhydrAMINE HCL [Benadryl] 25 mg PO HS PRN 02/22/18 03/09/18 History fentaNYL 25MCG/HR PATCH [Duragesic 1 patch TRANSDERM Q72H PRN 02/22/18 03/09/18 History 25MCG/HR] fentaNYL 100MCG/HR PATCH 1 patch TRANSDERM Q72H 02/23/18 03/09/18 History [Duragesic 100MCG/HR] Dexamethasone 4 mg PO Q6H 03/09/18 03/09/18 History Ipratropium-Albuterol Nebulize 3 ml INHALATION RT-QID 03/09/18 03/09/18 History [Duoneb 0.5 mg-3 mg/3 ml Soln] Nicotine 21Mg/24Hr Patch [Habitrol 1 patch TRANSDERM DAILY 03/09/18 03/09/18 History 21Mg/24Hr Patch] Allergies Allergy/AdvReac Type Severity Reaction Status Date / Time amoxicillin Allergy Rash/Hives Verified 03/09/18 15:33 morphine AdvReac Hallucinati Verified 03/09/18 15:33 ons oxycodone HCl AdvReac Confusion Verified 03/09/18 15:33 [From OxyContin] Morphine Family AdvReac Family Uncoded 03/09/18 15:32 history of altered mental status Surgical - Exam Vital Signs Temp Pulse Resp BP Pulse Ox 99 F 88 24 108/59 98 03/09/18 15:21 03/09/18 15:21 03/09/18 15:21 03/09/18 15:21 03/09/18 15:21 - General well developed, well nourished, no distress, chronically ill - Eyes PERRL, normal ocular movement - Neck no masses, no bruits, trachea midline - Respiratory Lungs sounds diminished bilaterally, right greater than left. Respirations even , nonlabored. Currently on 2 L nasal cannula with oxygen saturation 96%. Right -sided Pleurx catheter present with intact dressing. - Cardiovascular S1, S2 present. Regular rate and rhythm. Palpable peripheral pulses bilaterally. No edema present. No calf pain or tenderness noted. - Abdomen Abdomen: soft, non tender, bowel sounds - Genitourinary Deferred - Rectum Deferred - Integumentary no rash, no growths - Neurologic normal coordination, normal sensation - Psychiatric oriented to time, oriented to person, oriented to place, speech is normal, memory intact Results - Labs 03/11/18 06:23 03/11/18 06:23 Abnormal Lab Results - Last 24 Hours (Table) 03/11/18 03/11/18 Range/Units 06:23 06:23 WBC 12.7 H (3.8-10.6) k/uL RBC 4.02 L (4.30-5.90) m/uL Hgb 10.1 L (13.0-17.5) gm/dL Hct 32.9 L (39.0-53.0) % MCHC 30.7 L (31.0-37.0) g/dL Plt Count 526 H (150-450) k/uL Neutrophils # 11.5 H (1.3-7.7) k/uL Lymphocytes # 0.6 L (1.0-4.8) k/uL Sodium 132 L (137-145) mmol/L Chloride 94 L (98-107) mmol/L Carbon Dioxide 33 H (22-30) mmol/L BUN 8 L (9-20) mg/dL Creatinine 0.51 L (0.66-1.25) mg/dL Glucose 110 H (74-99) mg/dL Calcium 8.2 L (8.4-10.2) mg/dL Diabetes panel 03/11/18 Range/Units 06:23 Sodium 132 L (137-145) mmol/L Potassium 4.8 (3.5-5.1) mmol/L Chloride 94 L (98-107) mmol/L Carbon Dioxide 33 H (22-30) mmol/L BUN 8 L (9-20) mg/dL Creatinine 0.51 L (0.66-1.25) mg/dL Glucose 110 H (74-99) mg/dL Calcium 8.2 L (8.4-10.2) mg/dL Thyroid panel 03/11/18 Range/Units 06:23 TSH 0.913 (0.465-4.680) mIU/L Calcium panel 03/11/18 Range/Units 06:23 Calcium 8.2 L (8.4-10.2) mg/dL Pituitary panel 03/11/18 Range/Units 06:23 Sodium 132 L (137-145) mmol/L Potassium 4.8 (3.5-5.1) mmol/L Chloride 94 L (98-107) mmol/L Carbon Dioxide 33 H (22-30) mmol/L BUN 8 L (9-20) mg/dL Creatinine 0.51 L (0.66-1.25) mg/dL Glucose 110 H (74-99) mg/dL Calcium 8.2 L (8.4-10.2) mg/dL TSH 0.913 (0.465-4.680) mIU/L Adrenal panel 03/11/18 Range/Units 06:23 Sodium 132 L (137-145) mmol/L Potassium 4.8 (3.5-5.1) mmol/L Chloride 94 L (98-107) mmol/L Carbon Dioxide 33 H (22-30) mmol/L BUN 8 L (9-20) mg/dL Creatinine 0.51 L (0.66-1.25) mg/dL Glucose 110 H (74-99) mg/dL Calcium 8.2 L (8.4-10.2) mg/dL - Imaging Chest x-ray: report reviewed, image reviewed EKG: image reviewed Assessment and Plan (1) Intractable pain Current Visit: Yes Status: Acute Code(s): R52 - PAIN, UNSPECIFIED SNOMED Code(s): 89119720 (2) Pleural effusion Current Visit: Yes Status: Chronic Code(s): J90 - PLEURAL EFFUSION, NOT ELSEWHERE CLASSIFIED SNOMED Code(s): 32552184 (3) Metastatic melanoma Current Visit: Yes Status: Chronic Priority: High Code(s): C79.9 - SECONDARY MALIGNANT NEOPLASM OF UNSPECIFIED SITE SNOMED Code(s): 304198192 Plan: The patient was seen and examined at the bedside. Chart/diagnostics were reviewed. The patient is in no significant distress at this point in time. Likely too much fluid was removed at one time. Recommend only 1 L of fluid removed within a 24-hour period. We will drain Pleurx catheter tomorrow. Pain management per primary care service. Cancer management per oncology. May be discharged back to home to be drained by family/home care when okay with other consultants. Thank you Dr. Adorno for this consult. Please let us know if you have any questions. Time with Patient: Greater than 30
[2018-03-11] MEDS: HYDROmorphone 1 MG/ML 1 ML SYRINGE IVP PRN (15:57)
--- NOTE | 2018-03-11 16:36 | XR ---
EXAMINATION: XR chest 2V DATE AND TIME: 03/11/2018 2:10 PM ORDERING PROVIDER: Suhas Sigala MD CLINICAL INDICATION: pleural effusion TECHNIQUE: Frontal and lateral views COMPARISON: 03/09/2018 AP portable upright chest x-ray DESCRIPTION: Right chest tube is in place, with similar pattern of mild partial airlessness within th e right mid and lower lung zone. The upper right lung is well expanded and clear, and the entire left lung is well-expanded and clear. No pneumothorax. Small right pleural effusion has developed since the prior study. The cardiac silhouette is not enlarged. The skeletal structures and soft tissues are negative for acute findings. IMPRESSION: STABLE MILD AIRLESSNESS AT THE RIGHT BASE; SMALL PLEURAL EFFUSION PRESENTLY.
[2018-03-11] MEDS: Trametinib Dimethyl Sulfoxide [Mekinist] PO SCH (16:47)
[2018-03-11] MEDS: SODIUM CHLORIDE 0.9% 1,000 ML IV SCH (17:26)
[2018-03-11] MEDS: ASPIRIN 325 MG TAB PO SCH (19:55)
[2018-03-11] MEDS: SERTRALINE 100 MG TAB PO SCH (19:56)
[2018-03-11] MEDS: traZODone HCL 100 MG TAB PO SCH (19:56)
[2018-03-11 23:47] VITALS: RESP 18
[2018-03-12] MEDS: IPRATROPIUM-ALBUTEROL 3 ML NEB INHALATION SCH ×5 (01:18→16:37)
[2018-03-12] MEDS: LORazepam 1 MG TAB PO PRN (05:28)
[2018-03-12] MEDS: HYDROcodone/APAP 10-325MG 1 EACH TAB PO PRN (05:28)
[2018-03-12] MEDS ORDERED: PANTOPRAZOLE 40 MG TABLET PO SCH (07:30)
[2018-03-12] MEDS: NICOTINE 21MG/24HR PATCH TRANSDERM SCH (08:00)
[2018-03-12] MEDS: MONTELUKAST 10 MG TAB PO SCH (08:01)
[2018-03-12] MEDS: DEXAMETHASONE 4 MG TAB PO SCH ×2 (08:01→12:09)
[2018-03-12] MEDS: PRIMIDONE 50 MG TAB PO SCH (08:02)
[2018-03-12 08:48] VITALS: BP 120/78; TEMP 98
[2018-03-12] MEDS: HYDROmorphone 1 MG/ML 1 ML SYRINGE IVP PRN (09:54)
--- NOTE | 2018-03-12 09:56 | CDI ---
Last Revision, July 2017 Documentation Clarification Form Date: 03/12/18 From: Alondra Matias RN Admit Date: 03/09/2018 5:03:00 PM Patient Name: Campos Stephens Visit Number: [id number] ATTENTION: The Clinical Documentation Specialists (CDI) and [facility] Coding Staff appreciate your assistance in clarifying documentation. Please respond to the clarification below the line at the bottom and electronically sign. The CDI & [facility] Coding staff will review the response and follow-up if needed. Please note: Queries are made part of the Legal Health Record. If you have any questions, please contact the author of this message via ITS. Suhas Abad MD, A diagnosis of anemia lacks specificity to accurately reflect your patients severity of condition and clarification is needed. Consult 03/11 states positive for anemia. H&P states Anemia. History/Risk Factors: CAD, COPD, [place], OA, smoker, metastatic melanoma Clinical indicators: Hemoglobin on admission : 10.8 Hematocrit on admission: 34.5 Treatment: 0 units of PRBCs on hold, monitoring labs In order to capture the severity of condition, please clarify the type of anemia and etiology if known: Iron deficiency anemia Hemolytic anemia Drug induced anemia Anemia due to malignancy Unable to determine Other, please specify Please continue to document in your progress notes, under the line below and/or in the discharge summary in order to capture severity of illness and risk of mortality. Include clinical findings that support your diagnosis. MTDD
[2018-03-12] MEDS: TAFINLAR PO SCH (09:57)
--- NOTE | 2018-03-12 09:58 | P.PN ---
Subjective Progress Note Date: 03/12/18 Principal diagnosis: Acute right-sided pleuritic chest pain and dyspnea following drainage of bloody effusion from the right Pleurx catheter Mr. Stephens is a 62-year-old white male patient of Dr. Sigala who presented to the emergency department on 03/09/2018 at 1500 for evaluation of significant right-sided chest pain and dyspnea following drainage of 1.25 liters of bloody effusion from his right Pleurx catheter by the visiting nurse on Sunday. Patient had the right Pleurx catheter placed the day before on [address] Smith, with a total of 2 L of bloody effusion drained on that day. He was recently hospitalized from 02/22/2018 - 02/24/2018 for acute hypoxemic respiratory failure secondary to a large right pleural effusion, patient underwent right-sided thoracentesis with drainage of 2600 mL of dark sanguinous fluid, and the cytology was positive for malignant cells consistent with metastatic melanoma. Patient had his original melanoma on his back and had a wide excision with no adjuvant therapy in 2006. He was diagnosed with recurrent metastatic melanoma in 2016, on his left hip and right axillary node. Has been under the care of Dr. Henriquez, currently on Mekinist and Tafinlar. Cardiothoracic surgery was consulted for placement of Pleurx catheter doing that admission, and Pleurix catheter was placed when there was enough fluid buildup. Most recent echocardiogram showed preserved left ventricular systolic function with EF of 60-65%, mild pulmonary hypertension with right-sided pressures of 38 mmHg. Recent MRI from 03/06/2018 shows 3 intracranial lesions with the largest measuring 2 x 2.3 centimeters adjacent to the body of the right lateral ventricle, and there is mass effect and compression, findings suspicious for intracranial metastasis, and there was suspicion of hemorrhagic metastasis. CT chest without contrast prior to placement of Pleurx catheter, on 03/06/2018 showed increased large right pleural effusion, right middle and right lower lobar collapse with segmental atelectasis of the right upper lobe. Progression of the patient's mediastinal lymphadenopathy, compared most recent CT from 02/21/2018. There was increase in size to 9 mm of the inferior lingula pulmonary nodule as compared to 7 mm previously. This was on a background COPD and prior granulomatous disease. Chest x-ray completed in the emergency department on 03/09/2018 showed resolution of the previously noted right pleural effusion, and mild atelectasis in the right lower lobe, evidence of pneumothorax. Lab work showed WBC of 9.2, hemoglobin of 11.2, INR of 1.0, sodium 133, chloride is 94, CO2 32, BUN of 13, creatinine 0.6. Troponins were negative 3, cardiac enzymes were negative. LFTs normal. Past medical history is positive for anemia, coronary artery disease, COPD, osteoarthritis, obstructive sleep apnea not utilizing CPAP, DJD, anxiety, past history of smoking. Patient is still having moderate amount of right-sided chest discomfort, which is aggravated by deep breathing, and coughing. He has frequent loose cough, with production of whitish to clear sputum. He remains afebrile, no chills, he is on oral Decadron, he is on [place] 10 mg, IV Dilaudid, and 125 mics of transdermal fentanyl patch for pain control. On 03/12/2018 patient seen in follow-up on oncology floor. Yesterday's chest x- ray has been reviewed by Dr. Sterling and showed stable mild airlessness at the right base, and small pleural effusion. CT surgery has been consulted, and they 're planning on drain the Pleurx catheter today. Otherwise patient no acute distress signs are stable. He remains on oral Decadron, [place], Dilaudid, and transdermal fentanyl patch for pain control. Currently on 2 L per nasal cannula and his pulse ox is 97%, no fever, no chills, lung sounds are diminished at the right base, otherwise clear. Objective - Vital Signs Vital signs: Vital Signs Temp 98 F 03/12/18 07:00 Pulse 87 03/12/18 07:00 Resp 18 03/12/18 07:00 BP 120/78 03/12/18 07:00 Pulse Ox 97 03/12/18 07:00 Intake & Output 03/11/18 03/12/18 03/12/18 18:59 06:59 18:59 Intake Total 1250 1080 Output Total 200 Balance 1050 1080 Weight 110.223 kg Intake: Oral 1250 1080 Output: Urine 200 Other: Voiding Method Toilet Toilet Urinal Urinal # Voids 3 2 - Exam GENERAL EXAM: Alert, pleasant, 62-year-old white male in no apparent distress. HEAD: Normocephalic/atraumatic. EYES: Normal reaction of pupils, equal size. Conjunctiva pink, sclera white. NOSE: Clear with pink turbinates. THROAT: No erythema or exudates. NECK: No masses, no JVD, no thyroid enlargement, no adenopathy. CHEST: No chest wall deformity. Symmetrical expansion. LUNGS: Equal air entry with diminished breath sounds at the bases, more so on the right CVS: Regular rate and rhythm, normal S1 and S2, no gallops, no murmurs, no rubs ABDOMEN: Soft, nontender. No hepatosplenomegaly, normal bowel sounds, no guarding or rigidity. EXTREMITIES: No clubbing, no edema, no cyanosis, 2+ pulses and upper and lower extremities. MUSCULOSKELETAL: Muscle strength and tone normal. SPINE: No scoliosis or deformity SKIN: No rashes CENTRAL NERVOUS SYSTEM: Alert and oriented -3. No focal deficits, tone is normal in all 4 extremities. PSYCHIATRIC: Alert and oriented -3. Appropriate affect. Intact judgment and insight. - Labs CBC & Chem 7: 03/11/18 06:23 03/11/18 06:23 Assessment and Plan Plan: Assessment: #1. Acute right-sided pleuritic chest pain and dyspnea following drainage of 1.25 L of bloody effusion from the right Pleurx catheter on 03/09/2018. Patient had a placement of right Pleurx catheter on 03/08/2018 with drainage of 2 L of bloody effusion. Pleural fluid cytology was previously positive for malignant cells consistent with metastatic melanoma on 02/25/2018 #2. Recent hospitalization from 02/22/2018 - 02/24/2018 for acute hypoxemic respiratory failure secondary to a large right pleural effusion, status post drainage of 2600 mL of bloody pleural fluid #3. Metastatic melanoma, diagnosed in 2006, status post surgical resection, and most recently metastasized to pelvis, right axillary nodes, and brain #4. Chronic obstructive pulmonary disease #5. Obstructive sleep apnea, not wearing CPAP #6. Coronary artery disease with previous stenting #7. Nicotine dependence, ongoing #8. Anxiety #9. Osteoarthritis Plan: Pain is reasonably controlled, vital signs are stable, no fever, no chills, no worsening dyspnea. From pulmonary standpoint patient is stable for discharge home today while and drainage of the Pleurx catheter, and as long as his pain is under control. I performed a history & physical examination of the patient and discussed their management with my nurse practitioner, Adore Breaux. I reviewed the nurse practitioner's note and agree with the documented findings and plan of care. Lung sounds are positive in breath sounds at the bases. The findings and the impression was discussed with the patient. I attest to the documentation by the nurse practitioner. Time with Patient: Less than 30
--- NOTE | 2018-03-12 12:20 | P.PN ---
Subjective Progress Note Date: 03/12/18 Principal diagnosis: Right-sided recurrent malignant pleural effusion, status post Pleurx catheter placement on 03/07/2018. Previous medical history of malignant metastatic melanoma, myocardial infarction, previous tobacco dependence, and family history of lung and breast cancer. The patient was sitting up in bed this morning in no acute distress. States pain was better controlled. He has a lot of questions regarding treatment of his cancer which was referred to oncology. Daughter who is at bedside had many questions regarding management of Pleurx catheter, all questions were answered to the best of my ability and phone number was given for resource Objective - Vital Signs Vital signs: Vital Signs Temp 98 F 03/12/18 07:00 Pulse 87 03/12/18 07:00 Resp 18 03/12/18 07:00 BP 120/78 03/12/18 07:00 Pulse Ox 97 03/12/18 07:00 Intake & Output 03/11/18 03/12/18 03/12/18 18:59 06:59 18:59 Intake Total 1250 1080 Output Total 200 Balance 1050 1080 Weight 110.223 kg Intake: Oral 1250 1080 Output: Urine 200 Other: Voiding Method Toilet Toilet Urinal Urinal # Voids 3 2 - Constitutional General appearance: Present: cooperative, no acute distress - Respiratory Details: Lungs sounds diminished bilaterally. Respirations even, nonlabored. Currently on 2 L nasal cannula with oxygen saturation 97%. Right-sided Pleurx catheter present with intact dressing, drained 100 mL straw-colored fluid this morning which patient tolerated well. - Cardiovascular Details: S1, S2 present. Regular rate and rhythm. Palpable peripheral pulses bilaterally. No edema present. No calf pain or tenderness noted. - Gastrointestinal Gastrointestinal Comment(s): Abdomen soft, nontender, nondistended. Active bowel sounds 4 quadrants. Tolerating diet. - Genitourinary Genitourinary Comment(s): Patient continues to void clear, yellow urine. - Integumentary Integumentary Comment(s): Skin is warm and dry with evidence of good perfusion. Right Pleurx catheter site with clean dry intact dressing. - Neurologic Neurologic: Present: CNII-XII intact - Musculoskeletal Musculoskeletal: Present: gait normal, strength equal bilaterally - Psychiatric Psychiatric: Present: A&O x's 3, appropriate affect, intact judgment & insight - Allied health notes Allied health notes reviewed: nursing - Labs CBC & Chem 7: 03/11/18 06:23 03/11/18 06:23 - Imaging and Cardiology Chest x-ray: image reviewed Assessment and Plan (1) Intractable pain Current Visit: Yes Status: Acute Code(s): R52 - PAIN, UNSPECIFIED SNOMED Code(s): 57215822 (2) Pleural effusion Current Visit: Yes Status: Chronic Code(s): J90 - PLEURAL EFFUSION, NOT ELSEWHERE CLASSIFIED SNOMED Code(s): 61925489 (3) Metastatic melanoma Current Visit: Yes Status: Chronic Priority: High Code(s): C79.9 - SECONDARY MALIGNANT NEOPLASM OF UNSPECIFIED SITE SNOMED Code(s): 660580115 Plan: The patient was seen and examined at the bedside. The patient is in no significant distress at this point in time. Patient drained 100 mL straw- colored fluid. He tolerated this well. Extensive teaching was done with patient and daughter regarding Pleurx catheter care. Phone number given to patient in case he has any future questions. Pain management per primary care service. Cancer management per oncology. May be discharged back to home to be drained by family/home care when okay with other consultants. Time with Patient: Greater than 30
--- NOTE | 2018-03-12 13:32 | P.DS ---
Providers Date of admission: 03/09/18 17:03 Expected date of discharge: 03/12/18 Attending physician: Suhas Sigala Consults: 03/10/18 18:10 Consult Physician Routine Consulting Provider: Rosalind Adorno Consult Reason/Comments: copd, pleural effusion Do you want consulting provider notified?: Yes 03/10/18 18:11 Consult Physician Routine Consulting Provider: Venkata Flores Consult Reason/Comments: Metastatic melanoma Do you want consulting provider notified?: Yes 03/11/18 14:15 Consult Physician Routine Consulting Provider: Phong Smith Consult Reason/Comments: right pleurix catheter management Do you want consulting provider notified?: Yes Primary care physician: Suhas Sigala [facility] Course: 62-year-old male presented to the emergency room after having his Pleurx catheter drained by his home care nurse on 03/09/2018. The patient reports he had his Pleurx catheter placed on 03/08/[address] Wheat with removal of 2 L. The patient states his home care nurse drained approximately 1500 mL on Sunday which was blood-tinged. The patient states his pain continued to increase and he came to the emergency room for further evaluation. The patient was seen by cardiothoracic surgery as well as pulmonology. The patient's Pleurx catheter was drained on 03/12/2018 with 100 mL removed. The patient was given IV pain medications and his pain has improved. Patient's pain is likely due to the amount of fluid that was drained. The patient was cleared for discharge from cardiothoracic services and also pulmonology. The patient is stable for discharge. He is to follow up outpatient with his PCP and all consulting providers. The patient was not given any further narcotics at the time of discharge. He is to continue to use his fentanyl patch and [place] for pain control. Smoking cessation was discussed with the patient. Instructions were included in the patient's discharge for the home care nurse regarding Pleurx catheter drainage includin. Drain according to patient's symptoms of shortness of breath. No need to stick to a rigid schedule. 2. DO NOT drain more than 1 liter in 24 hours. 3. Please stop draining if patient develops pain, regardless if there is still fluid present or not. 4. Report drainage amounts to surgery office weekly. May leave message on voicemail [phone]. 5. Any questions regarding pleurX catheter, please call MERCEDES Andrea @ [phone]. DISCHARGE DIAGNOSIS: Intractable pain, s/p drainage of Pleurx catheter likely due to too much fluid being removed at one time, pain improved at time of discharge Metastatic melanoma, originally involving his back, treated with surgical resection, metastases involving left hip and right axillary nodes, patient also reports metastases to brain Recurrent right pleural effusion, cytology positive for malignant cells consistent with metastatic melanoma, s/p thoracentesis on 02/24/2018 and Pleurx catheter placement on 03/08/2018 with 2 L of drainage Chronic obstructive pulmonary disease Obstructive sleep apnea, not maintained on CPAP Coronary artery disease with previous stent placement 2013 Osteoarthritis Nicotine dependence, patient is a current cigarette smoker Generalized anxiety disorder Obesity: BMI 33.0 Chronic anemia, suspect due to malignancy, hemoglobin remains stable Nurse practitioner note has been reviewed by physician. Signing provider agrees with the documented findings, assessment, and plan of care. Patient Condition at Discharge: Stable Plan - Discharge Summary Discharge Rx Participant: No New Discharge Prescriptions: Continue Trametinib Dimethyl Sulfoxide [Mekinist] 2 mg PO HS Tafinlar 3 tab PO BID HYDROcodone/APAP 10-325MG [[place] 10-325] 1 tab PO Q8H Aspirin EC [Ecotrin] 325 mg PO HS Sertraline [Zoloft] 100 mg PO HS traZODone HCL [Desyrel] 100 mg PO HS tab Albuterol Inhaler [Ventolin Hfa Inhaler] 2 puff INHALATION RT-QID PRN PRN Reason: Shortness Of Breath Temazepam [Restoril] 30 mg PO HS Primidone [Mysoline] 50 mg PO BID Montelukast [Singulair] 10 mg PO DAILY LORazepam [Ativan] 1 mg PO TID PRN PRN Reason: Anxiety fentaNYL 25MCG/HR PATCH [Duragesic 25MCG/HR] 1 patch TRANSDERM Q72H PRN PRN Reason: Pain diphenhydrAMINE HCL [Benadryl] 25 mg PO HS PRN PRN Reason: Allergy Symptoms fentaNYL 100MCG/HR PATCH [Duragesic 100MCG/HR] 1 patch TRANSDERM Q72H Dexamethasone 4 mg PO Q6H Nicotine 21Mg/24Hr Patch [Habitrol] 1 patch TRANSDERM DAILY Ipratropium-Albuterol Nebulize [Duoneb 0.5 mg-3 mg/3 ml Soln] 3 ml INHALATION RT-QID Discharge Medication List Tafinlar 3 tab PO BID 10/07/15 [History] Trametinib Dimethyl Sulfoxide [Mekinist] 2 mg PO HS 10/07/15 [History] Aspirin EC [Ecotrin] 325 mg PO HS 11/09/15 [History] HYDROcodone/APAP 10-325MG [[place] 10-325] 1 tab PO Q8H 11/09/15 [History] Sertraline [Zoloft] 100 mg PO HS 11/09/15 [History] traZODone HCL [Desyrel] 100 mg PO HS tab 11/12/15 [Rx] Albuterol Inhaler [Ventolin Hfa Inhaler] 2 puff INHALATION RT-QID PRN 02/22/18 [ History] LORazepam [Ativan] 1 mg PO TID PRN 02/22/18 [History] Montelukast [Singulair] 10 mg PO DAILY 02/22/18 [History] Primidone [Mysoline] 50 mg PO BID 02/22/18 [History] Temazepam [Restoril] 30 mg PO HS 02/22/18 [History] diphenhydrAMINE HCL [Benadryl] 25 mg PO HS PRN 02/22/18 [History] fentaNYL 25MCG/HR PATCH [Duragesic 25MCG/HR] 1 patch TRANSDERM Q72H PRN [History] fentaNYL 100MCG/HR PATCH [Duragesic 100MCG/HR] 1 patch TRANSDERM Q72H 02/23/18 [ History] Dexamethasone 4 mg PO Q6H 03/09/18 [History] Ipratropium-Albuterol Nebulize [Duoneb 0.5 mg-3 mg/3 ml Soln] 3 ml INHALATION RT -QID 03/09/18 [History] Nicotine 21Mg/24Hr Patch [Habitrol] 1 patch TRANSDERM DAILY 03/09/18 [History] Follow up Appointment(s)/Referral(s): Rosalind Adorno MD [STAFF PHYSICIAN] - 2 Weeks Phong Smith MD [STAFF PHYSICIAN] - As Needed Suhas Sigala MD [Primary Care Provider] - 1 Week Natalio Henriquez MD [STAFF PHYSICIAN] - 1 Week Activity/Diet/Wound Care/Special Instructions: PLEURX CATHETER INSTRUCTIONS: 1. Drain according to patient's symptoms of shortness of breath. No need to stick to a rigid schedule. 2. DO NOT drain more than 1 liter in 24 hours. 3. Please stop draining if patient develops pain, regardless if there is still fluid present or not. 4. Report drainage amounts to surgery office weekly. May leave message on voicemail [phone]. 5. Any questions regarding pleurX catheter, please call MERCEDES Andrea @ [phone]. Discharge Disposition: HOME SELF-CARE
--- NOTE | 2018-03-12 13:50 | P.PN ---
Subjective Progress Note Date: 03/12/18 Principal diagnosis: metastatic Melanoma Pain is improved, He is tearful today but overall stable. He does have mild increased respirations, although lungs sound better to ausculatation then yesterday, may be increased with underlying emotions, anxiety. Objective - Vital Signs Vital signs: Vital Signs Temp 98 F 03/12/18 07:00 Pulse 88 03/12/18 12:30 Resp 18 03/12/18 07:00 BP 120/78 03/12/18 07:00 Pulse Ox 97 03/12/18 07:00 Intake & Output 03/11/18 03/12/18 03/12/18 18:59 06:59 18:59 Intake Total 1250 1080 Output Total 200 Balance 1050 1080 Weight 110.223 kg Intake: Oral 1250 1080 Output: Urine 200 Other: Voiding Method Toilet Toilet Urinal Urinal # Voids 3 2 - Constitutional General appearance: Present: cooperative, mild distress - EENT Eyes: Present: EOMI, dentition normal ENT: Present: hard of hearing, NA/AT, normal oropharynx - Neck Details: supple, trachea midline Neck: Present: normal ROM - Respiratory Respiratory: bilateral: CTA (increased respirations with anxiety this am) - Cardiovascular Rhythm: regular Heart sounds: normal: S1, S2 - Gastrointestinal General gastrointestinal: Present: normal bowel sounds, soft, tenderness - Integumentary Integumentary: Present: pale - Neurologic Neurologic Comment(s): no focal defect Neurologic: Present: CNII-XII intact - Musculoskeletal Musculoskeletal: Present: generalized weakness, strength equal bilaterally - Psychiatric Psychiatric: Present: A&O x's 3, appropriate affect, intact judgment & insight - Labs CBC & Chem 7: 03/11/18 06:23 03/11/18 06:23 Assessment and Plan Plan: Assessment and Recommendations: 1. Increased Pain in Right Chest - Site of Plurex Drainage: - Per surgery to ensure functioning and placement - Review Chest xray today prior to dicharge and will follow-up for opdivo to begin next week 2. Metastatic Melanoma - Lungs, Pleural Fluid, Brain, and Bones - Is planning to begin new therapy with Opdivo next week as outpatient, will continue with Xgeva - Continue XRT to Brain, If ppatient requires greater than 24 hour hospitalization Radiation Oncology to be notified. - Treatment is paliative in the picture of progressive metastastic cancer, patient aware of treatment and goals of treatment He had many questions about what his stage of disease was and since it has metastasized to brain and lung fluid now if it was still able to be cured. We discussed the realistic goals of care as his disease is treatable at this time, rather than curative. We discussed the initiation of opdico, potential side effects with this and statistical outscomes with opdivo. Greater than 20 minutes spent face to face with patient counseling and coordinating care. THank you for allowing us to participate in the care of this patient, we will follow along with you
--- NOTE | 2018-03-12 13:59 | XR ---
EXAMINATION TYPE: XR chest 2V DATE OF EXAM: 03/12/2018 COMPARISON: Prior chest x-ray 03/11/2018 HISTORY: Chest tube TECHNIQUE: Frontal and lateral views of the chest are obtained. FINDINGS: No significant interval change. IMPRESSION: Chest tube is stable on the right, no evident pneumothorax.
[2018-03-12 15:00] VITALS: PULSE 87
== END 2018-03-12 17:40 | disposition home health service (06) | DRG 920 ==
LOC: EC 15:06 → 5ONC 17:03
PROVIDERS: ADMIT Family Medicine; ATTEND Family Medicine
DX: T85.848A Pain due to other internal prosthetic devices, implants and grafts, initial encounter (principal); C78.00 Secondary malignant neoplasm of unspecified lung; C79.31 Secondary malignant neoplasm of brain; C79.51 Secondary malignant neoplasm of bone; J91.0 Malignant pleural effusion; C43.9 Malignant melanoma of skin, unspecified; D63.0 Anemia in neoplastic disease; D72.829 Elevated white blood cell count, unspecified; E66.9 Obesity, unspecified; F17.210 Nicotine dependence, cigarettes, uncomplicated; F41.1 Generalized anxiety disorder; G47.33 Obstructive sleep apnea (adult) (pediatric); I25.10 Atherosclerotic heart disease of native coronary artery without angina pectoris; I25.2 Old myocardial infarction; I27.20 Pulmonary hypertension, unspecified; J44.9 Chronic obstructive pulmonary disease, unspecified; M19.90 Unspecified osteoarthritis, unspecified site; Z68.33 Body mass index [BMI] 33.0-33.9, adult; Z79.82 Long term (current) use of aspirin; Z79.899 Other long term (current) drug therapy; Z80.1 Family history of malignant neoplasm of trachea, bronchus and lung; Z80.3 Family history of malignant neoplasm of breast; Z82.5 Family history of asthma and other chronic lower respiratory diseases; Z95.5 Presence of coronary angioplasty implant and graft; Z98.42 Cataract extraction status, left eye; Z98.41 Cataract extraction status, right eye; Z88.5 Allergy status to narcotic agent; Z88.0 Allergy status to penicillin
CPT/HCPCS: 36415; 71045; 71046; 80048; 80053; 82550; 82553; 83735; 84443; 84484; 85025; 85610; 85730; 86850; 86900; 86901; 93005; 94640; 96374; 96375; 99285

== ENCOUNTER → 2018-03-13 | Outpatient (CLI) | payer OTHER ==
--- NOTE | 2018-03-14 09:07 | CT ---
EXAMINATION TYPE: CT abdomen pelvis w con DATE OF EXAM: 03/13/2018 COMPARISON: CT chest abdomen pelvis 01/02/2018 INDICATION: Melanoma DLP: 1678 mGycm, Automated exposure control for dose reduction was used. CONTRAST: 100 mL of Isovue 300. Study performed with Oral Contrast TECHNIQUE: Axial images were obtained from above the diaphragm to the pubic rami in the axial plane a t 5 mm thick sections. Reconstructed images are reviewed on the computer in the coronal plane. FINDINGS: Limited CT sections are obtained the lung bases. There is a 1.6 cm nodule in the posterior lateral r ight lung base. This is new or possibly enlarged from December 23, 2017. Series 4 image 1. There is a new 0.8 cm nodule within the posterior lingula. Series 4 image 9. There is a new nodule within the health policy manager ior lateral right lung base measuring 0.9 cm. Series 4 image 11. A right-sided drainage catheter is p resent. Small hiatal hernia is present. CT ABDOMEN: Liver: Normal. No discrete masses or cysts are evident. Spleen: Multiple calcified granuloma within the spleen. Pancreas: Normal Adrenal glands: The adrenal glands are normal. Gallbladder: Normal Kidneys: No masses are evident. No hydronephrosis is present. No cysts are present. Aorta: Vascular calcification is within the aorta. Small shotty lymphadenopathy is adjacent to the a celina. The largest lymph node has a transverse dimension of 1.0 cm. Series 3 image 44. Inferior vena cava: Normal. CT PELVIS: There is a large hypodense mass with peripheral wall in the iliopsoas region adjacent to t he left ilium. This extends posterior to the iliopsoas muscle on the upper pelvic region. Some periph eral calcification may be present. This is displacing structures anterior medially. This area measure s 4.4 x 9.3 x 8.1 cm. Series 3 image 69, series 5 image 71. Large lymph node, lymphocele, abscess cou ld be within the differential. This structure was present previously and is enlarged over the interva l. Hematoma is considered less likely. The iliopsoas muscle on the left appears subtly atrophic nadeem red to the right. Loops of bowel within the abdomen and pelvis are normal. There are loops of bowel which are incom pletely distended or lack oral contrast limiting their evaluation. Appendix: Not identified. No suspicious inflammatory changes are evident. Urinary bladder: Decompressed with limited evaluation. Genitourinary structures: Prostate contains calcification. Osseous structures: No suspicious lytic or sclerotic lesions. No erosion adjacent to the mass is evid ent. IMPRESSIONS: 1. Left posterior lateral pelvic mass adjacent to the ileum is again evident and has enlarged from t he prior study. 2. Interval development and/or enlargement of bibasilar pulmonary nodules. CT chest with contrast is recommended for complete evaluation of the chest for suspected metastasis. 3. Interval development of enlarging periaortic lymphadenopathy.
== END | disposition home or self-care (01) ==
LOC: RADCTMAIN 16:40
PROVIDERS: ATTEND Internal Medicine Hematology & Oncology
DX: R19.00 Intra-abdominal and pelvic swelling, mass and lump, unspecified site (principal); R59.0 Localized enlarged lymph nodes; Z88.5 Allergy status to narcotic agent
CPT/HCPCS: 74177; Q9967

== ENCOUNTER 2018-04-03 18:13 | Inpatient (IN) | payer OTHER ==
[2018-04-03] MEDS ORDERED: SODIUM CHLORIDE 0.9% 500 ML IV ONE (18:51)
--- NOTE | 2018-04-03 18:52 | ED ---
General Adult HPI - General Chief complaint: Altered Mental Status Stated complaint: ALTERED MENTAL STATUS Brain Ca Time Seen by Provider: 04/03/18 18:18 Source: family, EMS, RN notes reviewed Mode of arrival: EMS Limitations: altered mental status - History of Present Illness Initial comments: Patient is a pleasant 62-year-old male presenting to the emergency department with altered mental status. Son provides history. Patient is a poor historian and unable to provide any significant history. Patient has had some decreased mental status the past few days. Patient got up to use the restroom this morning and was altered and has been altered persistently since that time. Patient has a history of known anemia and melanoma with metastasis to the pelvis and lungs and brain. Patient has been sweaty today. Patient did have similar symptoms several years ago associated with medication problems. No new medication changes. - Related Data Home Medications Medication Instructions Recorded Confirmed Aspirin EC [Ecotrin] 325 mg PO HS 11/09/15 04/03/18 HYDROcodone/APAP 10-325MG [[place] 1 tab PO Q8H 11/09/15 04/03/18 10-325] Sertraline [Zoloft] 100 mg PO HS 11/09/15 04/03/18 Albuterol Inhaler [Ventolin Hfa 2 puff INHALATION RT-QID PRN 02/22/18 04/03/18 Inhaler] LORazepam [Ativan] 1 mg PO TID PRN 02/22/18 04/03/18 Montelukast [Singulair] 10 mg PO DAILY 02/22/18 04/03/18 Primidone [Mysoline] 50 mg PO BID 02/22/18 04/03/18 Temazepam [Restoril] 30 mg PO HS 02/22/18 04/03/18 diphenhydrAMINE HCL [Benadryl] 25 mg PO HS PRN 02/22/18 04/03/18 fentaNYL 25MCG/HR PATCH [Duragesic 1 patch TRANSDERM Q72H PRN 02/22/18 04/03/18 25MCG/HR] fentaNYL 100MCG/HR PATCH 1 patch TRANSDERM Q72H 02/23/18 04/03/18 [Duragesic 100MCG/HR] Ipratropium-Albuterol Nebulize 3 ml INHALATION RT-QID 03/09/18 04/03/18 [Duoneb 0.5 mg-3 mg/3 ml Soln] Nicotine 21Mg/24Hr Patch [Habitrol] 1 patch TRANSDERM DAILY 03/09/18 04/03/18 Nivolumab [Opdivo] 480 mg IV Q30D 04/03/18 04/03/18 Nystatin 100,000 Unit/ml Susp 5 ml PO QID 04/03/18 04/03/18 [Mycostatin Oral Susp] Previous Rx's Medication Instructions Recorded traZODone HCL [Desyrel] 100 mg PO HS tab 11/12/15 Allergies Allergy/AdvReac Type Severity Reaction Status Date / Time amoxicillin Allergy Rash/Hives Verified 04/03/18 18:39 morphine AdvReac Hallucinati Verified 04/03/18 18:39 ons oxycodone HCl AdvReac Confusion Verified 04/03/18 18:39 [From OxyContin] Morphine Family AdvReac Family Uncoded 04/03/18 18:24 history of altered mental status Review of Systems ROS Statement: Those systems with pertinent positive or pertinent negative responses have been documented in the HPI. ROS Other: All systems not noted in ROS Statement are negative. Limitations: ROS unobtainable due to patients medical condition Neurological: Reports: confusion Past Medical History Past Medical History: Cancer, Myocardial Infarction ([place]) Additional Past Medical History / Comment(s): Metastatic melanoma of the L posterior pelvis, Left shoulder, brain, right lung. ANNETTE Last Myocardial Infarction Date:: 2003 History of Any Multi-Drug Resistant Organisms: None Reported Past Surgical History: Heart Catheterization With Stent Additional Past Surgical History / Comment(s): melanoma excision from back, pelvic biopsy. b/l cataracts. Placement of right-sided Pleurx catheter on 10/2017 Past Anesthesia/Blood Transfusion Reactions: No Reported Reaction Date of Last Stent Placement:: 2003 Past Psychological History: Anxiety Smoking Status: Current some day smoker Past Alcohol Use History: None Reported Past Drug Use History: None Reported - Past Family History Father Family Medical History: Cancer Additional Family Medical History / Comment(s): Father of lung cancer. He was a smoker. He had glaucoma and cataracts and macular degeneration. Mother Family Medical History: Cancer, COPD Additional Family Medical History / Comment(s): Mother had breast cancer. She was an alcoholic. General Exam Limitations: altered mental status General appearance: alert, other (Patient does appear somewhat restless.) Head exam: Present: atraumatic Eye exam: Present: normal appearance, PERRL, EOMI ENT exam: Present: other (Patient does have small sores/ulcers in the posterior pharynx) Neck exam: Present: normal inspection. Absent: tenderness, meningismus Respiratory exam: Present: decreased breath sounds (Right-sided) Cardiovascular Exam: Present: tachycardia GI/Abdominal exam: Present: soft. Absent: tenderness exam: Present: other (Easily reducible inguinal hernia. No significant tenderness. Not indurated.) Extremities exam: Present: normal inspection Back exam: Present: normal inspection Neurological exam: Present: alert, altered, other (No focal deficits. Limited exam secondary to patient's mental status) Expanded Patient oriented to: Absent: person, place, time Cranial nerves: EOM's Intact: Normal Eye Response: (4) open spontaneously Motor Response: (5) localizes to pain Verbal Response: (3) inappropriate words Psychiatric exam: Present: other (Restless) Skin exam: Present: diaphoretic, other (Purpura of the feet) Course Vital Signs 04/03/18 04/03/18 04/03/18 18:25 19:11 19:21 Temperature 97 F L Pulse Rate 145 H 148 H Respiratory 20 24 24 Rate Blood Pressure 120/63 O2 Sat by Pulse 96 96 Oximetry 04/03/18 04/03/18 04/03/18 20:25 20:32 21:22 Temperature Pulse Rate 147 H 149 H 156 H Respiratory 26 H 30 H 30 H Rate Blood Pressure 102/50 O2 Sat by Pulse 95 96 Oximetry - Reevaluation(s) Reevaluation #1: 04/03/18 18:56 I did remove 2 fentanyl patches from the patient's back. 04/03/18 20:31 Patient reevaluated and without significant change. Patient remains restless. Family is updated. Son states patient is DO NOT RESUSCITATE, DO NOT RESUSCITATE , no CPR, no intubation. 04/03/18 21:27 Patient again reevaluated and is somewhat resting more peacefully. Heart rate 133. Case discussed in detail with Dr. Henriquez who does have concern that patient is dying from his oncological disease. He does recommend comfort care. Case also discussed in detail with Dr. Gillespie who is in agreement. This was discussed with family,son who is in agreement with comfort care. EKG Findings - EKG Comments: EKG Findings:: Sinus tachycardia 145. NE 118. QRS 80. QT to 70. QTc 419. Left axis. Normal QRS. No acute ST change. Medical Decision Making - Lab Data Result diagrams: 04/03/18 19:00 04/03/18 19:00 Lab Results 04/03/18 04/03/18 04/03/18 Range/Units 19:00 19:00 19:00 WBC 14.0 H (3.8-10.6) k/uL RBC 4.18 L (4.30-5.90) m/uL Hgb 10.3 L (13.0-17.5) gm/dL Hct 33.5 L (39.0-53.0) % MCV 80.1 (80.0-100.0) fL MCH 24.6 L (25.0-35.0) pg MCHC 30.7 L (31.0-37.0) g/dL RDW 16.3 H (11.5-15.5) % Plt Count 34 L* D (150-450) k/uL Neutrophils % (Manual) 83 % Band Neutrophils % 5 % Lymphocytes % (Manual) 10 % Monocytes % (Manual) 2 % Metamyelocytes % 1 % Neutrophils # (Manual) 12.30 H (1.3-7.7) k/uL Lymphocytes # (Manual) 1.40 (1.0-4.8) k/uL Monocytes # (Manual) 0.28 (0-1.0) k/uL Metamyelocytes # (Man) 0.14 H (0) k/uL Nucleated RBCs 10 H (0-0) /100 WBC Manual Slide Review Performed Polychromasia Present Hypochromasia Marked Poikilocytosis (manual Present Anisocytosis Slight PT (9.0-12.0) sec INR (<1.2) APTT (22.0-30.0) sec Sodium 131 L (137-145) mmol/L Potassium 6.3 H* (3.5-5.1) mmol/L Chloride 93 L (98-107) mmol/L Carbon Dioxide 24 (22-30) mmol/L Anion Gap 14 mmol/L BUN 30 H (9-20) mg/dL Creatinine 1.12 (0.66-1.25) mg/dL Est GFR (CKD-EPI)AfAm 82 (>60 ml/min/1.73 sqM) Est GFR (CKD-EPI)NonAf 71 (>60 ml/min/1.73 sqM) Glucose 133 H (74-99) mg/dL POC Glucose (mg/dL) (75-99) mg/dL POC Glu Topographical Drafter ID Calcium 8.0 L (8.4-10.2) mg/dL Total Bilirubin 1.2 (0.2-1.3) mg/dL AST 694 H (17-59) U/L ALT 680 H (21-72) U/L Alkaline Phosphatase 576 H (38-126) U/L Ammonia (<30) umol/L Total Creatine Kinase 403 H (55-170) U/L CK-MB (CK-2) 7.9 H* (0.0-2.4) ng/mL CK-MB (CK-2) Rel Index 2.0 Troponin I 0.032 (0.000-0.034) ng/mL Total Protein 5.2 L (6.3-8.2) g/dL Albumin 2.6 L (3.5-5.0) g/dL 04/03/18 04/03/18 04/03/18 Range/Units 19:00 19:00 19:08 WBC (3.8-10.6) k/uL RBC (4.30-5.90) m/uL Hgb (13.0-17.5) gm/dL Hct (39.0-53.0) % MCV (80.0-100.0) fL MCH (25.0-35.0) pg MCHC (31.0-37.0) g/dL RDW (11.5-15.5) % Plt Count (150-450) k/uL Neutrophils % (Manual) % Band Neutrophils % % Lymphocytes % (Manual) % Monocytes % (Manual) % Metamyelocytes % % Neutrophils # (Manual) (1.3-7.7) k/uL Lymphocytes # (Manual) (1.0-4.8) k/uL Monocytes # (Manual) (0-1.0) k/uL Metamyelocytes # (Man) (0) k/uL Nucleated RBCs (0-0) /100 WBC Manual Slide Review Polychromasia Hypochromasia Poikilocytosis (manual Anisocytosis PT 16.6 H (9.0-12.0) sec INR 1.8 H (<1.2) APTT 22.8 (22.0-30.0) sec Sodium (137-145) mmol/L Potassium (3.5-5.1) mmol/L Chloride (98-107) mmol/L Carbon Dioxide (22-30) mmol/L Anion Gap mmol/L BUN (9-20) mg/dL Creatinine (0.66-1.25) mg/dL Est GFR (CKD-EPI)AfAm (>60 ml/min/1.73 sqM) Est GFR (CKD-EPI)NonAf (>60 ml/min/1.73 sqM) Glucose (74-99) mg/dL POC Glucose (mg/dL) 152 H (75-99) mg/dL POC Glu Topographical Drafter ID Nicky Jack Calcium (8.4-10.2) mg/dL Total Bilirubin (0.2-1.3) mg/dL AST (17-59) U/L ALT (21-72) U/L Alkaline Phosphatase (38-126) U/L Ammonia 34 H (<30) umol/L Total Creatine Kinase (55-170) U/L CK-MB (CK-2) (0.0-2.4) ng/mL CK-MB (CK-2) Rel Index Troponin I (0.000-0.034) ng/mL Total Protein (6.3-8.2) g/dL Albumin (3.5-5.0) g/dL - Radiology Data Radiology results: image reviewed (Computed tomography scan of the brain shows high attenuation right caudate nucleus and left posterior frontal lobe consistent with hemorrhagic metastatic disease. Left foot x-ray shows no fracture. Two-view chest x-ray shows right lower lobe consolidation and atelectasis.) Disposition Clinical Impression: Brain metastasis, Melanoma, Multiple organ dysfunction syndrome, Altered mental status Disposition: ADMITTED IP TO THIS [facility] Condition: Serious Is patient prescribed a controlled substance at d/c from ED?: No Referrals: None,Stated [Primary Care Provider] - 1-2 days Decision Time: 21:34
[2018-04-03 19:12] LABS: Glucose,Whole Blood 152 mg/dL (75-99)
[2018-04-03 19:16] LABS: INR 1.8 (<1.2); Partial Thromboplastin Time 22.8 sec (22.0-30.0); Prothrombin Time 16.6 sec (9.0-12.0)
[2018-04-03 19:17] LABS: Albumin 2.6 g/dL (3.5-5.0); Total Bilirubin 1.2 mg/dL (0.2-1.3); Total Protein 5.2 g/dL (6.3-8.2)
[2018-04-03 19:19] LABS: Potassium 6.3 mmol/L (3.5-5.1)
[2018-04-03] MEDS ORDERED: CALCIUM GLUCONATE 1,000 MG in SODIUM CHLORIDE 0.9% 100 ML IVPB ONE (19:22)
[2018-04-03] MEDS ORDERED: SODIUM CHLORIDE 0.9% 500 ML IV STA (19:22)
[2018-04-03] MEDS ORDERED: INSULIN REGULAR 100 UNIT/ML VIAL IV ONE (19:24)
[2018-04-03] MEDS ORDERED: DEXTROSE 50%-WATER 50 ML SYRINGE IVP STA (19:24)
--- NOTE | 2018-04-03 19:38 | XR ---
EXAMINATION TYPE: XR chest 2V DATE OF EXAM: 04/03/2018 COMPARISON: 03/12/2018 HISTORY: Altered mental status. Lethargy. TECHNIQUE: Frontal and lateral views of the chest are obtained. FINDINGS: There is some patchy consolidation in the right lower lobe. There is blunting of right cos tophrenic angle. There is no heart failure. Heart and mediastinum appear shifted slightly to the righ t side. There is right chest tube. There is no pneumothorax. IMPRESSION: There is some consolidation and atelectasis and pleural thickening in the right lower lo be that is worse than last exam. No heart failure. Right chest tube is in good position.
--- NOTE | 2018-04-03 19:39 | XR ---
EXAMINATION TYPE: XR foot complete LT DATE OF EXAM: 04/03/2018 COMPARISON: NONE HISTORY: Foot pain TECHNIQUE: 3 views FINDINGS: Metatarsals appear intact. I see no fracture nor dislocation. Joint spaces are fairly alexander l. There is an Achilles calcaneal spur. IMPRESSION: Calcaneal spurring. No fracture seen.
[2018-04-03] MEDS ORDERED: LORazepam 2 MG/ML INJ IV STA (19:42)
[2018-04-03 19:43] LABS: Troponin I 0.032 ng/mL (0.000-0.034)
[2018-04-03 19:49] LABS: Creatine Kinase MB 7.9 ng/mL (0.0-2.4)
[2018-04-03 19:52] LABS: Anisocytosis Slight; HCT 33.5 % (39.0-53.0); HGB 10.3 gm/dL (13.0-17.5); Hypochromasia Marked; MCH 24.6 pg (25.0-35.0); MCHC 30.7 g/dL (31.0-37.0); MCV 80.1 fL (80.0-100.0); Mean Platelet Volume 10.1; RBC 4.18 m/uL (4.30-5.90); RDW 16.3 % (11.5-15.5)
--- NOTE | 2018-04-03 20:16 | CT ---
EXAMINATION TYPE: CT brain wo con DATE OF EXAM: 04/03/2018 COMPARISON: MR scan 03/06/2018 HISTORY: Altered mental status. CT DLP: 1990 mGycm Automated exposure control for dose reduction was used. FINDINGS: There is a 2 cm area of hyper density in the right caudate nucleus with mild surrounding edema. There is some effacement of the frontal horn right lateral ventricle. There is cerebral cortical atrophy. The calvarium is intact. There is a 1.5 cm area of higher attenuation in the left posterior frontal l obe convexity. There is some surrounding mild edema. IMPRESSION: HIGH ATTENUATION FOCI IN THE RIGHT CAUDATE NUCLEUS AND LEFT POSTERIOR FRONTAL LOBE CONSISTENT WITH HE MORRHAGIC METASTATIC DISEASE IN THIS PATIENT WITH A HISTORY OF MELANOMA. THIS APPEARS NOT SIGNIFICANT LY DIFFERENT THAN THE MR SCAN OF 03/06/2018. This exam was discussed with ER physician at 8:10 PM.
[2018-04-03] MEDS ORDERED: SODIUM CHLORIDE 0.9% 1,000 ML IV STA ×2 (20:27→21:36)
[2018-04-03 20:30] LABS: Band Neutrophils % 5 %; Metamyelocytes # (M) 0.14 k/uL (0); Metamyelocytes % 1 %; Monocytes # (M) 0.28 k/uL (0-1.0); Neutrophils % (M) 83 %; Nucleated Red Blood Cells 10 /100 WBC (0-0); Poikilocytosis (M) Present; Polychromasia Present; Total Cells Counted 200
[2018-04-03 20:31] LABS: Platelet Count 34 k/uL (150-450)
[2018-04-03] MEDS ORDERED: LORazepam 2 MG/ML INJ IV PRN (21:35)
[2018-04-03] MEDS ORDERED: ONDANSETRON 4 MG/2 ML VIAL IVP PRN (21:35)
[2018-04-03 21:44] LABS: Amorphous Sediment,Urine Rare /hpf; Appearance,Urine Turbid (Clear); Bilirubin,Urine 1+ (Negative); Blood,Urine Small (Negative); Color,Urine Dark Yellow; Glucose,Urine (UA) Trace (Negative); Hyaline Casts,Urine 56 /lpf (0-2); Ketones,Urine Negative (Negative); Leukocyte Esterase,Urine Negative (Negative); Mucus,Urine Many /hpf; Nitrite,Urine Negative (Negative); PH, Urine 5.5 (5.0-8.0); Protein,Urine 1+ (Negative); RBC,Urine 2 /hpf (0-5); Specific Gravity,Urine 1.018 (1.001-1.035); Squamous Epithelial Cell,Urine 2 /hpf (0-4); WBC,Urine 8 /hpf (0-5)
[2018-04-03 21:57] LABS: Amphetamine Screen,Urine Not Detected (NotDetected); Barbiturate Screen,Urine Detected (NotDetected); Benzodiazepines Screen,Urine Detected (NotDetected); Cocaine Screen,Urine Not Detected (NotDetected); Methadone Screen, Urine Not Detected (NotDetected); Opiate Screen,Urine Detected (NotDetected); Oxycodone Screen, Urine Not Detected (NotDetected); Phencyclidine Screen,Urine Not Detected (NotDetected); Tricyclic Antidepressant,Urine Not Detected (NotDetected); Urn Cannabinoid Scrn Not Detected (NotDetected)
[2018-04-03] MEDS: HYDROmorphone 1 MG/ML 1 ML SYRINGE IVP PRN (23:34)
[2018-04-03 23:58] VITALS: BP 108/50; PULSE 136; RESP 36; TEMP 97.5; BMI 33.9
[2018-04-04] MEDS: HYDROmorphone 1 MG/ML 1 ML SYRINGE IVP PRN (01:20)
[2018-04-04] MEDS: LORazepam 2 MG/ML INJ IV PRN ×3 (01:23→03:29)
[2018-04-04] MEDS ORDERED: ATROPINE OPHTH SOLN 1% 5ML BTL SUBLINGUAL PRN ×2 (02:19→02:59)
[2018-04-04] MEDS ORDERED: HALOPERIDOL LACTATE 5 MG/ML 1 ML VIAL IM PRN (02:59)
[2018-04-04] MEDS: MORPHINE SULFATE 4 MG/ML SYRINGE IV PRN ×3 (03:18→05:01)
[2018-04-04] MEDS ORDERED: MORPHINE SULFATE (100 MG/2 ML) 100 MG in SODIUM CHLORIDE 0.9% 100 ML IV SCH (05:00)
== END 2018-04-04 10:40 | disposition expired | DRG 55 ==
LOC: EC 18:13 → 5ONC 22:36
PROVIDERS: ADMIT Family Medicine; ATTEND Family Medicine
DX: C79.31 Secondary malignant neoplasm of brain (principal); C79.51 Secondary malignant neoplasm of bone; C79.89 Secondary malignant neoplasm of other specified sites; C78.01 Secondary malignant neoplasm of right lung; G47.33 Obstructive sleep apnea (adult) (pediatric); I25.2 Old myocardial infarction; D64.9 Anemia, unspecified; F41.9 Anxiety disorder, unspecified; I25.10 Atherosclerotic heart disease of native coronary artery without angina pectoris; J44.9 Chronic obstructive pulmonary disease, unspecified; F17.210 Nicotine dependence, cigarettes, uncomplicated; Z85.820 Personal history of malignant melanoma of skin; Z79.82 Long term (current) use of aspirin; Z79.899 Other long term (current) drug therapy; Z88.5 Allergy status to narcotic agent; Z88.0 Allergy status to penicillin; Z95.5 Presence of coronary angioplasty implant and graft; Z51.5 Encounter for palliative care; Z66 Do not resuscitate; Z98.42 Cataract extraction status, left eye; Z98.41 Cataract extraction status, right eye; Z96.1 Presence of intraocular lens; Z80.1 Family history of malignant neoplasm of trachea, bronchus and lung; Z80.3 Family history of malignant neoplasm of breast; Z82.5 Family history of asthma and other chronic lower respiratory diseases
CPT/HCPCS: 36415; 51702; 70450; 71046; 80053; 80306; 81001; 82140; 82550; 82553; 84484; 85025; 85610; 85730; 93005; 96365; 96375; 99285